=== PATIENT | female | born 1975 | race Caucasian/White ===

== ENCOUNTER 2023-04-24 16:35 | Outpatient (OUT) | payer OTHER, SELFPAY ==
--- NOTE | 2023-04-24 16:46 | XR_ITS ---
The [address] [address] Patient Name: JOHANA SRIVASTAVA MRN: [id number] date: 1975 Sex: F Assigned Patient Location: [facility] Current Patient Location: Accession/Order Number: [id number] Exam Date: 04/24/2023 16:52 Report Date: 04/25/2023 07:46 At the request of: AMISHA SÁNCHEZ Procedure: XR lumbar spine 6V w bending Exam: Radiographs: XR hip RT 2V w/ pelvis, XR lumbar spine 6V w bending Reason for exam: ACUTE RIGHT HIP PAIN M25.551 Comparison: CT scan dated 09/24/2022 XR/XR lumbar spine 6V w bending IMPRESSION: Non-circumscribed subtle lucency in the superior femoral head neck junction is favored to represent normal variation in the marrow density although a subtle lucent lesion is difficult to exclude. If persistent symptoms, consider follow-up evaluation with MRI. Right hip is otherwise unremarkable. No radiographically evident lumbar spine fractures. 1 to 2 mm anterior motion of L4 on L5 between flexion/extension views. Otherwise no lumbar spine malalignment. Mild lumbar spine degenerative changes with preserved intervertebral disc heights. Remainder unremarkable. Electronically authenticated by: ASHELY MCCLELLAN Date: 04/25/2023 07:46
--- NOTE | 2023-04-24 16:47 | XR_ITS ---
[address] [address] Patient Name: JOHANA SRIVASTAVA MRN: [id number] date: 1975 Sex: F Assigned Patient Location: [facility] Current Patient Location: Accession/Order Number: [id number] Exam Date: 04/24/2023 16:52 Report Date: 04/25/2023 07:46 At the request of: AMISHA SÁNCHEZ Procedure: XR hip RT 2V w/ pelvis Exam: Radiographs: XR hip RT 2V w/ pelvis, XR lumbar spine 6V w bending Reason for exam: ACUTE RIGHT HIP PAIN M25.551 Comparison: CT scan dated 09/24/2022 XR/XR hip RT 2V w/ pelvis IMPRESSION: Non-circumscribed subtle lucency in the superior femoral head neck junction is favored to represent normal variation in the marrow density although a subtle lucent lesion is difficult to exclude. If persistent symptoms, consider follow-up evaluation with MRI. Right hip is otherwise unremarkable. No radiographically evident lumbar spine fractures. 1 to 2 mm anterior motion of L4 on L5 between flexion/extension views. Otherwise no lumbar spine malalignment. Mild lumbar spine degenerative changes with preserved intervertebral disc heights. Remainder unremarkable. Electronically authenticated by: ASHELY MCCLELLAN Date: 04/25/2023 07:46
== END 2023-04-24 16:36 | disposition home or self-care (01) ==
LOC: RAD 16:38
PROVIDERS: PCP Internal Medicine; Visit Provider Internal Medicine
DX: M54.41 Lumbago with sciatica, right side (principal); M25.551 Pain in right hip
CPT/HCPCS: 72114; 73502

== ENCOUNTER 2023-08-31 12:54 | Outpatient (OUT) | payer OTHER, SELFPAY ==
--- NOTE | 2023-08-31 12:58 | US_ITS ---
Patient Name: JOHANA SRIVASTAVA MR#: [id number] : 1975 Exam Date: 08/31/2023 Ordering Doctor: DR MIRACLE CARTER RADIOLOGY REPORT PROCEDURE: MM TOMOSYNTHESIS DIAGNOSTIC BI, 08/31/2023, 12:57 US BREAST BI COMPLETE, 08/31/2023, 13:31 COMPARISON: MG MAMM RT DIAG FU, 10/06/2022. INDICATIONS: Abnormal Mammogram Calculator Name NCI Breast Cancer Risk Assessment Tool 5 Year Breast Cancer Risk 1.60% Lifetime Breast Cancer Risk 12.50% Personal Breast Cancer No Personal Ovarian Cancer No Treatments None Family Cancers Grandfather-maternal with colon cancer at age 70. LOCATION: [facility] BREAST COMPOSITION: Extremely dense, which lowers the sensitivity of mammography. FINDINGS: DIAGNOSTIC CATEGORY 2--BENIGN FINDING: The breasts are stable in size and overall fibroglandular configuration. Multiple nodules identified in both breasts the largest in the left upper half. No spiculated mass or suspicious pleomorphic calcifications Ultrasound was performed demonstrating multiple areas of anechoic echogenicity in both breasts largest measuring 2.2 cm in the left. These lesions correspond to the mammographic findings and simple cysts are favored. No further evaluation is required. RECOMMENDATIONS: ROUTINE MAMMOGRAM AND CLINICAL EVALUATION IN 12 MONTHS. PLEASE NOTE: A NORMAL MAMMOGRAM DOES NOT EXCLUDE THE POSSIBILITY OF BREAST CANCER. A CLINICALLY SUSPICIOUS PALPABLE LUMP SHOULD BE BIOPSIED. Dictated by: Rickey Rangel MD on 08/31/2023 at 14:22 Approved by: Rickey Rangel MD on 08/31/2023 at 14:24
== END 2023-08-31 12:55 | disposition home or self-care (01) ==
LOC: MAMMO 12:54
PROVIDERS: PCP Internal Medicine; Visit Provider Obstetrics & Gynecology
DX: R92.8 Other abnormal and inconclusive findings on diagnostic imaging of breast (principal); Z80.0 Family history of malignant neoplasm of digestive organs
CPT/HCPCS: 76641; 77066; G0279

== ENCOUNTER 2025-06-11 08:11 | Outpatient (OUT) | payer OTHER, SELFPAY ==
--- OUTSIDE RECORDS SUMMARY | 2025-06-11 08:21 | XMS_ITS | CCD ---
Author Organization [facility] Inform ion [facility] Care Team Providers Care Informatics Spec Name Role Phone Reed Sánchez DO Primary Care Provider [phone] JUAN, DR CHAUDHARY Attending Unavailable PRINCESS, DR LION Primary Care Unavailable KARASIK, DR CHAUDHARY Consulting Unavailable KARASIK, DR CHAUDHARY Admitting Unavailable ZIEBER, DR PHYLLIS Yu Consulting Unavailable KARASIK, DR CHAUDHARY Consulting Unavailable KARASIK, DR CHAUDHARY Admitting Unavailable KARASIK, DR CHAUDHARY Attending Unavailable PRINCESS, DR LION Primary Care Unavailable PRINCESS, DR LION Primary Care Unavailable KARASIK, DR CHAUDHARY Consulting Unavailable KARASIK, DR CHAUDHARY Admitting Unavailable KARASIK, DR CHAUDHARY Attending Unavailable FARRAH, DR RACHAEL Oliver Consulting Unavailable PRINCESS, DR LION Primary Care Unavailable SALINAS, DR JABARI Yu Consulting Unavailable SUSAN, DR HUTCHINSON Admitting Unavailable SUSAN, DR HUTCHINSON Attending Unavailable HAY, DR HUTCHINSON Consulting Unavailable Louis, Margarita Consulting Unavailable REED SÁNCHEZ Primary Care Unavailable IMEL, CATERINA Fishman Admitting Unavailable IMYESENIA, CATERINA Fishman Attending Unavailable REED SÁNCHEZ Primary Care Unavailable MD Neena Youngblood Attending Provider DO Reed Sánchez Primary Care Provider [phone] KATARINA ASH Admitting Unavail able KATARINA ASH Attending Unavail able REED SÁNCHEZ Primary Care Unavailable JOHN CERNA Consulting Unavailable JOHN CERNA Admitting Unavailable JOHN CERNA Attending Unavailable REED SÁNCHEZ Primary Care Unavailable Reed Sánchez Unavailable DO Reed Sánchez Primary Care Provider [phone] DO Nasim Gifford Attending Provider [phone] NASIM GIFFORD Attending Unavailable Reed Sánchez MD Primary Care Provider Reed Sánchez Primary Care Unavailable Nasim Gifford Attending Unavailable Nasim Gifford Admitting Unavailable Reed Sánchez DO Primary Care Provider Reed Sánchez DO Attending Provider Reed Sánchez DO E Primary Care Provider Allergies Allergy Classification Reported Allergen(s) Allergy Type Date of Onset Reaction(s) Facility (4 sources) Penicillin G Drug Allergy 09-24-19 Rash [facility] (11 sources) Sulfonamides (Antibiotic) Propensity to adverse reactions to drug 09-24-19 Rash, Hives, Itching [facility] Work Phone: (1 source) Penicillin Drug Allergy [facility] (1 source) Sulfonamides (Antibiotic) Drug allergy (disorder) [facility] (7 sources) Penicillins; Translations: [Penicillins] Allergy to substance 11-16-19 Hives, [facility] (5 sources) Sulfonamides (Antibiotic); Translations: [Sulfa (Sulfonamide Antibiotics)] Allergy to substance 11-16-19 Unknown Reaction, [facility] (6 sources) Amoxicillin Drug Allergy Unknown [facility] Other (6 sources) Sulfamethoxazole / Trimethoprim Drug Allergy Unknown [facility] Other (5 sources) Substance with penicillin structure and antibacterial mechanism of action (substance) Drug allergy Unknown [facility] Other Medications Current Medications Medication Drug Class(es) Dates Sig (Normalized) Sig (Original) calcium chloride 0.0014 meq/ml / potassium chloride 0.004 meq/ml / sodium chloride 0.103 meq/ml / sodium lactate 0.028 meq/ml injectable solution (2 sources) Start: 12-14-2022 lactated ringers IV soln infusion Start: 11-14-2022 lactated ringe rs IV soln infusion ciprofloxacin 500 mg oral tablet (4 sources) Quinolone Antimicrobial Start: 12-14-2022 End: 12-19-2022 take 1 tablet by mouth twice daily ciprofloxacin (CIPRO) 500 MG tablet Take 1 tablet by mouth 2 times daily for 5 days 10 tablet 0 12/14/2022 12/19/2022 Active Start: 10-02-2022 End: 10-05-2022 take 1 tablet by mouth twice daily ciprofloxacin (CIPRO) 500 MG tablet Take 1 tablet by mouth 2 times daily for 3 days 6 tablet 0 10/02/2022 10/05/2022 Active Start: 09-25-2022 End: 10-05-2022 ciprofloxacin (CIPRO) IVPB 4 00 mg docusate sodium 100 mg oral capsule (1 source) Start: 12-14-2022 take 1 capsule by mouth once daily docusate sodium (COLACE) 100 MG capsule Take 1 capsule by mouth daily 28 capsule 0 12/14/2022 Active 0.3 ml enoxaparin sodium 100 mg/ml prefilled syringe (1 source) Low Molecular Weight Heparin Start: 09-27-2022 enoxaparin Sodium (LOVENOX) injection 30 mg estradiol 1 mg oral tablet (3 sources) Estrogen Start: 04-29-2024 End: 06-03-2025 take 1 tablet by mouth once daily estradiol (Estrace) 1 MG tablet Indications: Postmenopausal HRT (hormone replacement therapy) TAKE 1 TABLET BY MOUTH EVERY DAY 90 tablet 06/01/2025 Active famotidine 20 mg oral tablet (14 sources) Histamine-2 Receptor Antagonist Start: 05-16-2023 take 1 tablet by mouth once daily as needed for gastroesophageal reflux disease Famotidine (Pepcid) 20 mg Tablet Active 20 MG PO Daily as needed for gerd May 16, 2023 12:00am Complies with drug therapy take 1 tablet by mouth every twe lve hours Pepcid AC 10 MG 1 tablet as needed Orally Twice a day Active 2 ml fentaNYL 0.05 mg/ml injection (2 sources) Opioid Agonist Start: 12-14-2022 fentaNYL (SUBL IMAZE) injection 50 mcg Start: 12-14-2022 fentaNYL (SUBL IMAZE) injection 25 mcg ibuprofen 400 mg oral tablet (1 source) Nonsteroidal Anti-inflammatory Drug Start: 09-26-2022 ibuprofen (ADVIL;MOTRIN) tablet 400 mg levonorgestrel 0.555027 mg/hr intrauterine system (4 sources) Progestin, Progestin-containing Intrauterine Device levonorgestrel (MIRENA, 52 MG,) IUD 52 mg 52 each by IntraUTERine route 0 Active meloxicam 15 mg oral tablet (1 source) Nonsteroidal Anti-inflammatory Drug Start: 05-28-2025 take 1 tablet by mouth once daily Meloxicam 15 mg tablet Active 15 MG PO Daily May 28, 2025 12:00am Complies with drug therapy meperidine hydrochloride 50 mg/ml injectable solution (1 source) Opioid Agonist Start: 12-14-2022 meperidine (DEMEROL) injection 12.5 mg metroNIDAZOLE 500 mg oral tablet (4 sources) Nitroimidazole Antimicrobial Start: 12-14-2022 End: 12-19-2022 take 1 tablet by mouth three times daily metroNIDAZOLE (FLAGYL) 500 MG tablet Take 1 tablet by mouth 3 times daily for 5 days 15 tablet 0 12/14/2022 12/19/2022 Active Start: 10-02-2022 End: 10-05-2022 take 1 tablet by mouth three times daily metroNIDAZOLE (FLAGYL) 500 MG tablet Take 1 tablet by mouth 3 times daily for 3 days 9 tablet 0 10/02/2022 10/05/2022 Active Start: 09-29-2022 End: 10-05-2022 metronidazole (FLAGYL) 500 m g in 0.9% NaCl 100 mL IVPB premix Start: 09-25-2022 End: 09-29-2022 500 mg, IntraVENous, EVERY 8 HOURS, First dose on Sun09/25/22 at 0245, Until Discontinued Antimicrobial Indications: Surgical Prophylaxis nitrofurantoin, macrocrystals 25 mg / nitrofurantoin, monohydrate 75 mg oral capsule (2 sources) Nitrofuran Antibacterial Start: 07-12-2023 take 1 capsule by mouth every twelve hours Nitrofurantoin Monohyd Macro 100 MG 1 capsule with food Orally every 12 hrs for 5 days Jun, Active ondansetron 4 mg oral tablet (3 sources) Serotonin-3 Receptor Antagonist Start: 12-14-2022 take 1 tablet by mouth every eight hours as needed for nausea ondansetron (ZOFRAN) 4 MG tablet Take 1 tablet by mouth every 8 hours as needed for Nausea or Vomiting 28 tablet 0 12/14/2022 Active Start: 12-14-2022 End: 12-14-2022 ondansetron (ZOFRAN) injecti on 4 mg Start: 09-27-2022 ondansetron (Z OFRAN) injection 4 mg predniSONE 20 mg oral tablet (1 source) Start: 05-28-2025 Prednisone 20 mg tablet Active 20 MG PO As Directed 9 May 28, 2025 12:00am 1 tab bid w/ food x 3 days, then qd w/ food x 3 days Complies with drug therapy 5 ml sodium chloride 9 mg/ml injection (9 sources) Start: 12-14-2022 sodium chlorid e flush 0.9 % injection 5-40 mL Start: 12-14-2022 0.9 % sodium c hloride infusion Start: 12-14-2022 sodium chlorid e flush 0.9 % injection 5-40 mL Start: 11-14-2022 0.9 % sodium c hloride infusion Start: 11-14-2022 sodium chlorid e flush 0.9 % injection 5-40 mL Start: 09-25-2022 End: 09-26-2022 0.9 % sodium chloride infusi on Start: 09-25-2022 take 5-40 mL intrave nously once as needed 5-40 mL, IntraVENous, PRN, Starting on Sun09/25/22 at 0233, Until Discontinued, Line Care, After every IV line use For Line Patency: Peripheral IV = 5 mL; Midline or Central Line = 10 mL/lumen. If following IV push medication, administer flush at same rate as the IV push. Flush volume is determined by type of infusion therapy being given. For non-viscous solutions use: Peripheral IV = 5 mL Midline or Central Line = 10 mL/lumen For viscous solutions (i.e. blood components, parenteral nutrition, contrast media, or after obtaining blood sample) use: Peripheral IV = 10 mL Midline or Central Line = 20 mL/lumen Start: 09-24-2022 End: 09-25-2022 0.9 % sodium chloride bolus tiZANidine 4 mg oral tablet (5 sources) Central alpha-2 Adrenergic Agonist Start: 04-24-2023 take 0.5-1 tablets by mouth once at bedtime tiZANidine HCl 4 MG 1/2 to 1 tablet Orally q HS for 14 days Apr, Active Completed/Discontinued Medications Medication Drug Class(es) Dates Sig (Normalized) Sig (Original) acetaminophen 500 mg oral capsule (4 sources) Start: 05-24-2023 End: 04-29-2024 take 2 capsules by mouth twice daily as needed for pain Acetaminophen 500 mg Capsule Discontinued 1000 MG PO Twice daily as needed for Pain May 24, 2023 12:00am April 29, 2024 1:32pm Start: 05-24-2023 take 1000 mg by mout h twice daily Acetaminophen Active 1000 MG PO Twice daily May 24, 2023 12:00am Start: 09-27-2022 acetaminophen (TYLENOL) tablet 650 mg Start: 09-25-2022 End: 09-27-2022 take 1 dose by mouth three times daily 1,000 mg, Oral, EVERY 8 HOURS SCHEDULED (3 times per day), First dose on Sun09/25/22 at 0600, Until Discontinued Maximum dose of acetaminophen is 4000 mg from all sources in 24 hours. azithromycin 250 mg oral tablet (2 sources) Macrolide Antimicrobial Start: 01-13-2025 End: 05-28-2025 Azithromycin 250 mg tablet Discontinued 0 PO daily 02 26January 13, 2025 12:00am May 28, 2025 9:37am Take 2 on day 1 and then take 1 for the next 4 days (days 2-5) Start: 04-02-2023 Azithromycin 2 50 MG as directed Orally daily for 5 days Mar, Active cetirizine hydrochloride 10 mg oral tablet (14 sources) Histamine-1 Receptor Antagonist Start: 05-16-2023 End: 04-29-2024 take 1 tablet by mouth once daily at bedtime Cetirizine (Zyrtec) 10 mg Tablet Discontinued 10 MG PO Daily at bedtime May 16, 2023 12:00am April 29, 2024 1:32pm diatrizoate meglumine-sodium (GASTROGRAFIN) 66-10 % solution 30 mL (2 sources) Start: 09-28-2022 End: 09-28-2022 diatrizoate meglumine-sodium (GASTROGRAFIN) 66-10 % solution 30 mL Start: 09-25-2022 End: 09-27-2022 diatrizoate meglumine-sodium (GASTROGRAFIN) 66-10 % solution 30 mL docusate sodium 50 mg / sennosides, fci 8.6 mg oral tablet (1 source) Start: 09-26-2022 End: 09-27-2022 sennosides-docusate sodium (SENOKOT-S) 8.6-50 MG tablet 2 tablet etodolac 500 mg oral tablet (9 sources) Nonsteroidal Anti-inflammatory Drug Start: 03-17-2024 End: 04-29-2024 take 1 tablet by mouth twice daily at mealtime Etodolac 500 mg tablet Discontinued 0 .ROUTE .COMPLEX 60 March 17, 2024 1:13pm April 29, 2024 1:32pm TAKE 1 TABLET BY MOUTH TWICE A DAY WITH FOOD FOR 30 DAYS Start: 04-24-2023 End: 03-17-2024 etodolac (Lodine) 500 MG tab let if needed. 06/24/2023 Active 250 ml glucose 50 mg/ml / sodium chloride 4.5 mg/ml injection (1 source) Start: 09-26-2022 End: 09-29-2022 dextrose 5 % and 0.45 % sodium chloride infusion 1 ml HYDROmorphone hydrochloride 1 mg/ml cartridge (2 sources) Opioid Agonist Start: 09-25-2022 End: 09-25-2022 HYDROmorphone (DILAUDID) injection 1 mg Start: 09-24-2022 End: 09-24-2022 HYDROmorphone (DILAUDID) inj ection 1 mg iopamidol (ISOVUE-370) 76 % injection 75 mL (2 sources) Start: 09-28-2022 End: 09-28-2022 iopamidol (ISOVUE-370) 76 % injection 75 mL Start: 09-25-2022 End: 09-25-2022 iopamidol (ISOVUE-370) 76 % injection 75 mL 1 ml ketorolac tromethamine 15 mg/ml cartridge (1 source) Nonsteroidal Anti-inflammatory Drug, Cyclooxygenase Inhibitor Start: 09-25-2022 End: 09-26-2022 take 1 dose intravenously once daily Ketorolac is contraindicated in patients with advanced renal impairment and in patients at risk of renal failure due to volume depletion. For 65 years of age and older OR weight less than 50 kg, use 15 mg IV every 6 hours; MAX dose: 60 mg/day. Dose greater than 30 mg must be administered via intramuscular route. Do not administer for more than 5 days. 15 mg, IntraVENous, EVERY 6 HOURS, 12 doses, First dose on Sun09/25/22 at 0245, Last dose on Sun09/28/22 at 0000 Do not administer for more than 5 days. 10 ml lidocaine hydrochloride 10 mg/ml injection (1 source) Antiarrhythmic, Amide Local Anesthetic Start: 11-14-2022 End: 11-14-2022 lidocaine PF 1 % injection 1 mL 50 ml magnesium sulfate 40 mg/ml injection (1 source) Start: 09-27-2022 End: 09-27-2022 magnesium sulfate 2000 mg in 50 mL IVPB premix 2 ml metoclopramide 5 mg/ml prefilled syringe (1 source) Dopamine-2 Receptor Antagonist Start: 12-14-2022 End: 12-14-2022 metoclopramide (REGLAN) injection 10 mg Start: 12-14-2022 End: 12-14-2022 metoclopramide (REGLAN) inje ction 10 mg naproxen sodium 220 mg oral tablet (2 sources) Nonsteroidal Anti-inflammatory Drug Start: 05-24-2023 End: 05-28-2025 take 1 tablet by mouth once daily as needed for pain Naproxen Sodium (Aleve) 220 mg Tablet Discontinued 220 MG PO Daily as needed for Pain May 24, 2023 12:00am May 28, 2025 10:02am oxyCODONE hydrochloride 5 mg oral tablet (4 sources) Opioid Agonist Start: 12-14-2022 End: 12-21-2022 oxyCODONE (ROXICODONE) immediate release tablet 5 mg Start: 09-25-2022 End: 09-28-2022 take 5 mg by mouth every six hours as needed for pain 5 mg, Oral, EVERY 6 HOURS PRN, Starting on Sun09/25/22 at 0233, Until Sun09/28/22 at 1022, Pain Severe (7-10) potassium & sodium phosphate s (PHOS-NAK) 280-160-250 MG packet 500 mg (1 source) Start: 09-26-2022 End: 09-26-2022 potassium & sodium phosphates (PHOS-NAK) 280-160-250 MG packet 500 mg microencapsulated potassium chloride 20 meq extended release oral tablet (3 sources) Start: 09-29-2022 End: 01-06-2023 potassium chloride (KLOR-CON M) extended release tablet 20 mEq Start: 09-27-2022 End: 09-27-2022 potassium chloride (KLOR-CON M) extended release tablet 40 mEq Start: 09-26-2022 End: 09-26-2022 potassium chloride (KLOR-CON M) extended release tablet 40 mEq 2 ml prochlorperazine 5 mg/ml injection (1 source) Phenothiazine Start: 12-14-2022 End: 12-14-2022 prochlorperazine (COMPAZINE) injection 10 mg Start: 12-14-2022 End: 12-14-2022 prochlorperazine (COMPAZINE) injection 10 mg traMADol hydrochloride 50 mg oral tablet (2 sources) Opioid Agonist Start: 05-24-2023 End: 04-29-2024 take 1 tablet by mouth every four hours as needed for pain Tramadol 50 mg Tablet Discontinued 50 MG PO Q4H as needed for Pain scale 1 - 4 20 7 May 24, 2023 12:00am April 29, 2024 1:32pm Problems Active Problems Problem Classification Problem Date Documented Date Episodic/Chronic Abdominal pain (15 sources) Right lower quadrant pain; Translations: [Abdominal pain] Onset: 09-24-2022 Resolved: 02-28-2022 Episodic Comment on above: Problem List clean-u p per request of Phys. EHR Cmte Esophageal disorders (7 sources) Gastro-esophageal reflux disease without esophagitis; Translations: [Gastro-esophageal reflux disease with esophagitis] Onset: 09-27-2022 07-08-2024 Chronic Esophageal disorders (3 sources) Esophageal disorders; Translations: [Gastro-esophageal reflux disease with esophagitis, without bleeding] Genitourinary symptoms and ill-defined conditions (1 source) Dysuria Episodic Immunizations and screening for infectious disease (6 sources) Encounter for screening for human papillomavirus (HPV); Translations: [Contact with and (suspected) exposure to other viral communicable diseases] Onset: 09-20-2022 Episodic Menopausal disorders (1 source) Postmenopausal state; Translations: [Hormone replacement therapy] 07-08-2024 Episodic Miscellaneous mental health disorders (5 sources) Lack or loss of sexual desire; Translations: [Hypoactive sexual desire disorder] Onset: 04-09-2011 Chronic Other ear and sense organ disorders (5 sources) Otitis externa of bilateral ears; Translations: [Other otitis externa, bilateral] Chronic Other injuries and conditions due to external causes (5 sources) History of fall; Translations: [History of falling] Episodic Other nervous system disorders (1 source) Postoperative pain ; Translations: [Other acute postprocedural pain] Episodic Other nervous system disorders (1 source) Other acute postprocedural pain; Translations: [Other acute postprocedural pain] Onset: 12-14-2022 Episodic Other non-traumatic joint disorders (1 source) Pain in right hip Episodic Other nutritional; endocrine; and metabolic disorders (5 sources) Simple obesity ; Translations: [Other obesity due to excess calories] Onset: 11-12-2018 Chronic Other nutritional; endocrine; and metabolic disorders (5 sources) Body mass index 25-29 - overweight; Translations: [Body mass index (BMI) 27.0-27.9, adult] Episodic Other nutritional; endocrine; and metabolic disorders (1 source) Overweight Episodic Other upper respiratory infections (6 sources) Chronic maxillary sinusitis; Translations: [Chronic maxillary sinusitis] 01-13-2025 Chronic Other upper respiratory infections (16 sources) Acute maxillary sinusitis, unspecified; Translations: [Acute sinusitis] Onset: 08-05-2014 Episodic Otitis media and related conditions (1 source) Unspecified Eustachian tube disorder, bilateral Episodic Ovarian cyst (6 sources) Unspecified ovarian cyst, left side; Translations: [Cyst of right ovary] Onset: 09-27-2022 Episodic Residual codes; unclassified (1 source) Family history of malignant neoplasm of digestive organs; Translations: [FAM HX MALIG NEOPLASM DIGESTIV ORGN] Onset: 09-22-2022 Episodic Residual codes; unclassified (5 sources) Postprocedural state finding; Translations: [Other specified postprocedural states] Episodic Spondylosis; intervertebral disc disorders; other back problems (6 sources) Acute back pain with sciatica; Translations: [Lumbago with sciatica, right side] Episodic Unclassified (1 source) CONTACT W/AND (SUSP) EXPOS COVID-19; Translations: [CONTACT W/AND (SUSP) EXPOS COVID-19] Onset: 09-27-2022 Unclassified (5 sources) Unspecified lump in the right breast, overlapping quadrants; Translations: [Unspecified lump in the right breast, overlapping quadrants] Past or Other Problems Problem Classification Problem Date Documented Date Episodic/Chronic Appendicitis and other appendiceal conditions (12 sources) Appendicitis; Translations: [Unspecified appendicitis] Onset: 09-25-2022 Episodic Cancer of cervix (12 sources) Atypical squamous cells on cervical Papanicolaou smear cannot exclude high grade squamous intraepithelial lesion; Translations: [Atypical squamous cells cannot exclude high grade squamous intraepithelial lesion on cytologic smear of cervix (ASC-H)] Onset: 05-09-2023 Resolved: 07-08-2024 07-08-2024 Episodic Menstrual disorders (5 sources) Excessive and frequent menstruation; Translations: [Excessive and frequent menstruation with regular cycle] Resolved: 02-28-2022 Chronic Nonmalignant breast conditions (20 sources) Disorder of breast; Translations: [Other specified disorders of breast] Onset: 05-09-2023 Resolved: 02-07-2018 05-09-2023 Episodic Other aftercare (5 sources) History and physical examination, follow-up; Translations: [Encounter for follow-up examination after completed treatment for conditions other than malignant neoplasm] Resolved: 09-12-2021 Episodic Other female genital disorders (5 sources) Hypertrophy of uterus; Translations: [Hypertrophy of uterus] Resolved: 09-12-2021 Episodic Other nutritional; endocrine; and metabolic disorders (9 sources) Overweight; Translations: [Overweight] Onset: 07-08-2024 Resolved: 09-08-2020 07-08-2024 Episodic Other screening for suspected conditions (not mental disorders or infectious disease) (20 sources) Encounter for screening mammogram for malignant neoplasm of breast; Translations: [Other abnormal and inconclusive findings on diagnostic imaging of breast] Onset: 09-13-2022 Resolved: 07-08-2024 Episodic Results Test Name Value Interpretation Reference Range Facility MM screening mammo BI w/CADo n 09-03-2024 MM screening mammo BI w/CAD [facility] [place] [address] [place] [address] Mammography Report Signed Patient: Johana Srivastava MR#: [id number] : 1975 Acct:[id number] Age/Sex: 48 / F ADM Date: 09/03/24 Loc: [place] Room: Type: [facility] Attending Dr: Nasim Gifford DO Copies to: DO Nasim Crow DO Ordering Provider: Nasim Gifford DO Date of Service: 09/03/24 MM/MM screening mammo BI w/CAD: Z12.31 CLINICAL DATA: Screening for malignancy. BILATERAL SCREENING MAMMOGRAMS - FULL FIELD DIGITAL WITH TOMOSYNTHESIS AND CAD Tomosynthesis craniocaudal and mediolateral oblique views of both breasts were obtained using low- dose digital technique. Comparison is made to prior studies from 08/31/2023. This examination was reviewed with the aid of CAD. The breast parenchyma is heterogeneously dense. There is a similar focal asymmetry in the upper outer aspect of the left breast. Benign-appearing calcifications are present bilaterally. Benign- appearing lymph nodes are noted along the chest wall. There is a biopsy clip in the medial aspect of the right breast. Similar focal asymmetries are noted on the right. A prominent focal asymmetry centrally in the left breast shows a significant interval decrease in size. There are no dominant masses, typically malignant calcifications or architectural distortion. There has been no significant interval change. MM/MM screening mammo BI w/CAD IMPRESSION: NO MAMMOGRAPHIC EVIDENCE OF MALIGNANCY. ROUTINE FOLLOW-UP IS RECOMMENDED IN ONE YEAR. RESULT CODE: 2 Benign Findings(s) DENSITY CODE: 3 (approximately 51-75% glandular) FOLLOW UP: 1YR The false-negative rate of mammography is approximately 10-percent. Management of a palpable abnormality must be based on clinical grounds. Patient was entered into a reminder system with a target due date for the next mammogram. Impression dictated by: Jabari Eaton M.D.09/03/2024 3:55 PM Dictation Location: [facility] Transcribed By: [facility] 09/03/24 1550 Dictated By: Jabari Eaton II, MD 09/03/24 155 Signed By: 09/03/24 1559 Normal [facility] Urinalysis - DIPSTICKon 10- Appearance (U) cloudy [facility] Other Bilirubin Ql (U) off chart [facility] Other Color (U) yellow [facility] Other Glucose Ql (U) Negative [facility] Other Hemoglobin Ql (U) + [facility] Other Ketones Ql (U) Negative [facility] Other Leukocyte esterase Test strip Ql (U) + [facility] Other Nitrite Ql (U) Negative [facility] Other pH (U) 5.0 [pH] [facility] Other Protein Ql (U) + [facility] Other Specific gravity (U) [Rel density] 1.010 [facility] Other Urobilinogen (U) [Mass/Vol] off chart [facility] Other Urinalysis - DIPSTICK [facility] Other HCG ( test) IA.rapi d Ql (U)Ordered By: Song Hyatt on 05-24-2023 HCG ( test) Ql (U) Negative [facility] Cult,Urineon 12-15-2022 Cult,Urine Specimen Description .INDWELLING CATH URINE Culture NO GROWTH Report Status FINAL 12/15/2022 Normal [facility] Comment on above: Performed By: #### U RC #### [employer] [address] [place] [address] Manager Secondary: Leno Walker MD POCT urine pregnancyon 12-14 Beta HCG ( test) Ql (U) Negative NEGATIVE [facility] Comment on above: Specimens with hCG l evels near the threshold of the test (25 mIU/mL) may give a negative or indeterminate result. In such cases, another test should be performed with a new specimen in 48-72 hours. If early is suspected clinically in this setting, correlation with quantitative serum b-hCG level is suggested. [facility] Surgical Pathologyon 023 Surgical Pathology (NOTE) -- Diagnosis -- A. APPENDIX, APPENDECTOMY: -MURAL FIBROSIS WITH CHRONIC INFLAMMATION, FOCAL MUCOSAL NECROSIS, AND SCATTERED GIANT CELLS, CONSISTENT WITH INTERVAL APPENDECTOMY. B. APPENDICEAL AND CECAL BASE, EXCISION: -FOCAL MUCOSAL NECROSIS WITH ACUTE AND CHRONIC INFLAMMATION AND FIBROSIS. -FOCAL AREA WITH ACUTE AND CHRONIC INFLAMMATION, FOREIGN BODY GIANT CELLS, AND FIBROSIS, COMPATIBLE WITH HISTORY OF PERFORATED BASE OF APPENDIX. Rachael Alvares M.D. Electronically Signed Out rosario12/18/2022 Clinical Information Pre-Op Diagnosis: PERFORATED APPENDIX Operative Findings: APPENDIX; APPENDICEAL AND CECAL BASE Operation Performed: XI ROBOTIC LAPAROSCOPIC APPENDECTOMY, POSSIBLE OPEN mj Source of Specimen A: APPENDIX B: APPENICEAL AND CECAL BASE Gross Description A. JOHANA SRIVASTAVA, APPENDIX 4.5 cm long x 0.8 cm in diameter vermiform appendix with a moderate amount of attached mesoappendix. The serosa is pink-castro with adhesions and patchy fibrinopurulent exudate. In the center of the segment there is a 0.2 cm transmural defect. There is no fecaliths. Tip and cross sections with margin inked black 1cs. B. JOHANA SRIVASTAVA, APPENDICEAL AND CECAL BASE 5.8 x 2.0 x 1.0 cm portion of bowel with a single staple line. The serosa is pink-castro adhesion. The mucosa is castro with no masses. Sections along staple line 1cs. cd Microscopic Description A, B. Microscopic examination performed. SURGICAL PATHOLOGY CONSULTATION Patient Name: JOHANA SRIVASTAVA [facility] Rec: [id number] Path Number: [id number] [facility] ANATOMIC PATHOLOG[facility] [address] [place] [phone] [facility] Comment on above: Performed By: #### U #### [employer] [address] [place] [address] [phone] Manager Secondary: Leno Walker MD POCT HCG, Prenancy, Uron Beta HCG ( test) Ql (U) Negative NEGATIVE [facility] Comment on above: HCG screen is sensitive to 25 mIU/mL. However this test may picker box operator lower levels of HCG. If further evaluation is needed please request quantitative HCG. [facility] Surgical Pathologyon 023 Surgical Pathology (NOTE) -- Diagnosis -- APPENDICEAL BASE, BIOPSY:-COLONIC MUCOSA WITH SLIGHT ACUTE ON CHRONIC INFLAMMATION.-NO GRANULOMAS, DYSPLASIA OR CARCINOMA. Laura Deleon Electronically Signed Out ag/11/15/2022 Clinical Information Pre-op Diagnosis: COLON CA SCREENING Operative Findings: APPENDICEAL BASE BIOPSY Operation Performed: COLONOSCOPY WITH BIOPSY tm Source of Specimen A: APPENDICEAL BASE BIOPSY Gross Description JOHANA SRIVASTAVA, APPENDICEAL BASE BIOPSY Three castro-white tissue fragments from 0.4 to 0.5 cm and are 1.5 x 0.3 x 0.1 cm in aggregate. Entirely 1cs. yr tm Microscopic Description Microscopic examination performed. SURGICAL PATHOLOGY CONSULTATION Patient Name: JOHANA SRIVASTAVA [facility] Rec: [id number] Path Number: [id number] [employer] [facility] ANATOMIC PATHOLOGY [address] [place] [phone] Normal [facility] Comment on above: Performed By: #### P PPVS #### [facility] [employer] [address] [place] [address] [phone] Manager Secondary: Leno Walker MD MG MAMM RT DIAG FUon 023 MG MAMM RT DIAG FU Patient: JOHANA SRIVASTAVA Exam Date: 10/06/2022 : 1975 Gender:F Ordering : DR NEENA YOUNGBLOOD . Admission #: [id number] Family : Order #: [id number] CLICK HERE TO VIEW EXAM RADIOLOGY REPORT PROCEDURE: MAMMOGRAM RIGHT DIAGNOSTIC DIGITAL FOLLOW UP, 10/06/2022, 13:46 ULTRASOUND BREAST RIGHT LIMITED, 10/06/2022, 14:20 COMPARISON: MG MAMM SCREEN 3D GABBY CAD, 09/20/2022. MG MAMM SCREEN 3D GABBY CAD, 09/15/2021. MG MAMM LT DIAG FU, 09/20/2020. MG MAMM SCREEN GABBY W CAD, 09/10/2020. INDICATIONS: Abnormal findings on diagnostic imaging of breast Calculator Name NCI Breast Cancer Risk Assessment Tool 5 Year Breast Cancer Risk 1.70% Lifetime Breast Cancer Risk 12.80% Personal Breast Cancer No Personal Ovarian Cancer No Treatments None Family Cancers Grandfather-maternal with colon cancer at age 70. LOCATION: [facility] BREAST COMPOSITION: Extremely dense, which lowers the sensitivity of mammography. FINDINGS: DIAGNOSTIC CATEGORY 0--INCOMPLETE: NEED ADDITIONAL IMAGING EVALUATION. RIGHT BREAST: Spot magnification views demonstrate a 9 x 6 x 5 mm irregular, slightly lobular mass within the upper inner quadrant, corresponding to the new findings on recent screening moderate fee. Ultrasound evaluation demonstrates 2 lesions within this area: One is 9 x 4 x 4 mm at the 3 o'clock position 9.2 cm from the nipple, with irregular slightly lobular margins, appearing to represent a partially cystic mass or collection of simple and complex cysts. No appreciable internal blood flow on color Doppler. The 2nd lesion is 1.6 x 0.9 x 0.5 cm at the 2 o'clock position 6.3 cm from the nipple, with lobular irregular margins and appears represent a mixture of cystic and solid structures; no appreciable internal blood flow on color Doppler. Ultrasound-guided biopsy of both of these lesions could be performed, however, given the very complex appearance of both breasts and history of prior biopsies and follow-up images, MRI of the breast should be considered due to its greater diagnostic sensitivity for malignancy. RECOMMENDATIONS: BREAST MRI: BILATERAL BREASTS PLEASE NOTE: A NORMAL MAMMOGRAM DOES NOT EXCLUDE THE POSSIBILITY OF BREAST CANCER. A CLINICALLY SUSPICIOUS PALPABLE LUMP SHOULD BE BIOPSIED. Dictated by: Phyllis Benoit M.D. on 10/06/2022 at 14:44 Approved by: Phyllis Benoit M.D. on 10/06/2022 at 15:13 Normal [facility] US BREAST RIGHT LIMITEDon US BREAST RIGHT LIMITED Patient: JOHANA SRIVASTAVA Exam Date: 10/06/2022 : 1975 Gender:F Ordering : DR NEENA YOUNGBLOOD . Admission #: [id number] Family : Order #: [id number] CLICK HERE TO VIEW EXAM RADIOLOGY REPORT PROCEDURE: MAMMOGRAM RIGHT DIAGNOSTIC DIGITAL FOLLOW UP, 10/06/2022, 13:46 ULTRASOUND BREAST RIGHT LIMITED, 10/06/2022, 14:20 COMPARISON: MG MAMM SCREEN 3D GABYB CAD, 09/20/2022. MG MAMM SCREEN 3D GABBY CAD, 09/15/2021. MG MAMM LT DIAG FU, 09/20/2020. MG MAMM SCREEN GABBY W CAD, 09/10/2020. INDICATIONS: Abnormal findings on diagnostic imaging of breast Calculator Name NCI Breast Cancer Risk Assessment Tool 5 Year Breast Cancer Risk 1.70% Lifetime Breast Cancer Risk 12.80% Personal Breast Cancer No Personal Ovarian Cancer No Treatments None Family Cancers Grandfather-maternal with colon cancer at age 70. LOCATION: [facility] BREAST COMPOSITION: Extremely dense, which lowers the sensitivity of mammography. FINDINGS: DIAGNOSTIC CATEGORY 0--INCOMPLETE: NEED ADDITIONAL IMAGING EVALUATION. RIGHT BREAST: Spot magnification views demonstrate a 9 x 6 x 5 mm irregular, slightly lobular mass within the upper inner quadrant, corresponding to the new findings on recent screening moderate fee. Ultrasound evaluation demonstrates 2 lesions within this area: One is 9 x 4 x 4 mm at the 3 o'clock position 9.2 cm from the nipple, with irregular slightly lobular margins, appearing to represent a partially cystic mass or collection of simple and complex cysts. No appreciable internal blood flow on color Doppler. The 2nd lesion is 1.6 x 0.9 x 0.5 cm at the 2 o'clock position 6.3 cm from the nipple, with lobular irregular margins and appears represent a mixture of cystic and solid structures; no appreciable internal blood flow on color Doppler. Ultrasound-guided biopsy of both of these lesions could be performed, however, given the very complex appearance of both breasts and history of prior biopsies and follow-up images, MRI of the breast should be considered due to its greater diagnostic sensitivity for malignancy. RECOMMENDATIONS: BREAST MRI: BILATERAL BREASTS PLEASE NOTE: A NORMAL MAMMOGRAM DOES NOT EXCLUDE THE POSSIBILITY OF BREAST CANCER. A CLINICALLY SUSPICIOUS PALPABLE LUMP SHOULD BE BIOPSIED. Dictated by: Phyllis Benoit M.D. on 10/06/2022 at 14:44 Approved by: Phyllis Benoit M.D. on 10/06/2022 at 15:13 Normal [facility] CBC with Auto Differentialon 10-02-2022 Absolute Eos # 0.38 [facility] Absolute Immature Granulocyte 0.50 High [facility] Absolute Lymph # 3.50 [facility] Absolute Parke # 0.50 [facility] Basophils (Bld) [#/Vol] 0.25 10*3/uL High [facility] Basophils/100 WBC (Bld) 2 % 0 - 2 % [facility] Eosinophils/100 WBC (Bld) 3 % 1 - 4 % [facility] Hematocrit (Bld) [Volume fraction] 36.3 % 36.3 - 47.1 % [facility] Hemoglobin (Bld) [Mass/Vol] 11.3 g/dL Low 11.9 - 15.1 g/dL [facility] Immature granulocytes/100 WBC (Bld) 4 % High 0 [facility] Interpretation and review of laboratory results Abnormal [facility] Lymphocytes/100 WBC (Bld) 28 % 24 - 44 % [facility] MCH (RBC) [Entitic mass] 29.1 pg 25.2 - 33.5 pg [facility] MCHC (RBC) [Mass/Vol] 31.1 g/dL 28.4 - 34.8 g/dL [facility] MCV (RBC) [Entitic vol] 93.6 fL 82.6 - 102.9 fL [facility] Monocytes/100 WBC (Bld) 4 % 1 - 7 % [facility] Morphology Vazquez (Bld) [Interp] Normal [facility] NRBC Automated 0.0 0.0 per 100 WBC [facility] Platelet distribution width (Bld) [Ratio] 12.7 % 11.8 - 14.4 % [facility] Platelet mean volume (Bld) [Entitic vol] 9.7 fL 8.1 - 13.5 fL [facility] Platelets (Bld) [#/Vol] 484 10*3/uL High [facility] RBC (Bld) [#/Vol] 3.88 10*6/uL Low 3.95 - 5.1 1 m/uL [facility] Segmented neutrophils/100 WBC (Bld) 59 % 36 - 66 % [facility] Segs Absolute 7.37 [facility] WBC (Bld) [#/Vol] 12.5 10*3/uL High [facility] CBC with Diffon 10-02-2022 Abs. Basophil 0.25 k/uL High 0.0-0.2 [facility] Comment on above: Performed By: #### U #### [address] [address] Manager Secondary: Leno Walker MD Abs.Imm.Granulocyte 0.50 k/uL High 0.00-0.30 [facility] Comment on above: Performed By: #### U RC #### [address] [address] Manager Secondary: Leno Walker MD Abs.Neutrophil (Seg) 7.37 k/uL Normal 1.8-7.7 [facility] Comment on above: Performed By: #### U RC #### [address] [address] Manager Secondary: Leno Walker MD Basophils/100 WBC (Bld) 2 % Normal 0-2 [facility] Comment on above: Performed By: #### U RC #### [address] [address] Manager Secondary: Leno Walker MD Eosinophils (Bld) [#/Vol] 0.38 10*3/uL Normal 0.0-0.4 [facility] Comment on above: Performed By: #### U RC #### [address] [address] Manager Secondary: Leno Walker MD Eosinophils/100 WBC (Bld) 3 % Normal 1-4 [facility] Comment on above: Performed By: #### U RC #### [address] [address] Manager Secondary: Leno Walker MD Immature granulocytes/100 WBC (Bld) 4 % High 0 [facility] Comment on above: Performed By: #### U RC #### [address] [address] Manager Secondary: Leno Walker MD Lymphocytes (Bld) [#/Vol] 3.50 10*3/uL Normal 1.0-4.8 [facility] Comment on above: Performed By: #### U RC #### [address] [address] Manager Secondary: Leno Walker MD Lymphocytes/100 WBC (Bld) 28 % Normal 24-44 [facility] Comment on above: Performed By: #### U RC #### [address] [address] Manager Secondary: Leno Walker MD Monocytes (Bld) [#/Vol] 0.50 10*3/uL Normal 0.1-0.8 [facility] Comment on above: Performed By: #### U RC #### [address] [address] Manager Secondary: Leno Walker MD Monocytes/100 WBC (Bld) 4 % Normal 1-7 [facility] Comment on above: Performed By: #### U RC #### [address] [address] Manager Secondary: Leno Walker MD Morphology Vazquez (Bld) [Interp] Normal Normal [facility] Comment on above: Performed By: #### U RC #### [address] [address] Manager Secondary: Leno Walker MD Neutrophil (Seg) 59 % Normal 36-66 [facility] Comment on above: Performed By: #### U RC #### [address] [address] Manager Secondary: Leno Walker MD NRBC Automated 0.0 per 100 WBC Normal 0.0 [facility] Comment on above: Performed By: #### U RC #### [address] [address] Manager Secondary: Leno Walker MD Platelet mean volume (Bld) [Entitic vol] 9.7 fL Normal 8.1-13.5 [facility] Comment on above: Performed By: #### U RC #### [address] [address] Manager Secondary: Leno Walker MD Platelets (Bld) [#/Vol] 484 10*3/uL High 138-453 [facility] Comment on above: Performed By: #### U RC #### [address] [address] Manager Secondary: Leno Walker MD WBC (Bld) [#/Vol] 12.5 10*3/uL High 3.5-11.3 [facility] Comment on above: Performed By: #### U RC #### [address] [address] Manager Secondary: Leno Walker MD Erythrocyte distribution width (RBC) [Ratio] 12.7 % Normal 11.8-14.4 [facility] Comment on above: Performed By: #### U RC #### [address] [address] Manager Secondary: Leno Walker MD Hematocrit (Bld) [Volume fraction] 36.3 % Normal 36.3-47.1 [facility] Comment on above: Performed By: #### U RC #### [address] [address] Manager Secondary: Leno Walker MD Hemoglobin (Bld) [Mass/Vol] 11.3 g/dL Low 11.9-15.1 [facility] Comment on above: Performed By: #### U RC #### [address] [address] Manager Secondary: Leno Walker MD MCH (RBC) [Entitic mass] 29.1 pg Normal 25.2-33.5 [facility] Comment on above: Performed By: #### U RC #### [address] [address] Manager Secondary: Leno Walker MD MCHC (RBC) [Mass/Vol] 31.1 g/dL Normal 28.4-34.8 [facility] Comment on above: Performed By: #### U RC #### [address] [address] Manager Secondary: Leno Walker MD MCV (RBC) [Entitic vol] 93.6 fL Normal 82.6-102.9 [facility] Comment on above: Performed By: #### U RC #### [address] [address] Manager Secondary: Leno Walkre MD RBC (Bld) [#/Vol] 3.88 10*6/uL Low 3.95-5.11 [facility] Comment on above: Performed By: #### U RC #### [address] [address] Manager Secondary: Leno Walker MD Basic Metab w/rfx MGon 10-01 Anion gap [Moles/Vol] 12 mmol/L Normal 9-17 [facility] Comment on above: Performed By: #### C DP, IOCAL, BMPX, MG, LATOSHA, PT #### [address] [address] Manager Secondary: Leno Walker MD Calcium [Mass/Vol] 8.4 mg/dL Low 8.6-10.4 [facility] Comment on above: Performed By: #### C DP, IOCAL, BMPX, MG, LATOSHA, PT #### [address] [address] Manager Secondary: Leno Walker MD Chloride [Moles/Vol] 102 mmol/L Normal 98-107 [facility] Comment on above: Performed By: #### C DP, IOCAL, BMPX, MG, LATOSHA, PT #### [facility] [employer] [address] [place] [address] [phone] Manager Secondary: Leno Walker MD CO2 [Moles/Vol] 23 mmol/L Normal 20-31 [facility] Comment on above: Performed By: #### C DP, IOCAL, BMPX, MG, LATOSHA, PT #### [facility] [employer] [address] [place] [phone] Manager Secondary: Leno Walker MD Creatinine [Mass/Vol] 0.67 mg/dL Normal 0.50-0.90 [facility] Comment on above: Performed By: #### C DP, IOCAL, BMPX, MG, LATOSHA, PT #### [address] [phone] Manager Secondary: Leno Walker MD GFR/1.73 sq M.predicted among non-blacks MDRD (S/P/Bld) [Vol rate/Area] mL/min/{1.73_m2} Normal >60 [facility] Comment on above: Result Comment: Effective Jun 26, 2022 These results are not intended for use in patients <18 years of age. eGFR results are calculated without a race factor using the 2020 CKD-EPI equation. Careful clinical correlation is recommended, particularly when comparing to results calculated using previous equations. The CKD-EPI equation is less accurate in patients with extremes of muscle mass, extra-renal metabolism of creatine, excessive creatine ingestion, or following therapy that affects renal tubular secretion. Performed By: #### C DP, IOCAL, BMPX, MG, LATOSHA, PT #### [facility] [employer] [address] [place] [address] [phone] Manager Secondary: Leno Walker MD Glucose [Mass/Vol] 121 mg/dL High 70-99 [facility] Comment on above: Performed By: #### C DP, IOCAL, BMPX, MG, LATOSHA, PT #### [facility] [employer] [address] [place] [address] [phone] Manager Secondary: Leno Walker MD Potassium [Moles/Vol] 4.2 mmol/L Normal 3.7-5.3 [facility] Comment on above: Performed By: #### C DP, IOCAL, BMPX, MG, LATOSHA, PT #### [facility] [address] [place], [place] [phone] Manager Secondary: Leno Walker MD Sodium [Moles/Vol] 137 mmol/L Normal 135-144 [facility] Comment on above: Performed By: #### C DP, IOCAL, BMPX, MG, LATOSHA, PT #### [facility] [address] [place], [place] [phone] Manager Secondary: Leno Walker MD Urea nitrogen [Mass/Vol] 11 mg/dL Normal 6-20 [facility] Comment on above: Performed By: #### C DP, IOCAL, BMPX, MG, LATOSHA, PT #### [facility] [address] [place], [place] [phone] Manager Secondary: Leno Walker MD Basic Metabolic Panel w/ Ref pam to MGon 10-01-2022 Anion gap [Moles/Vol] 12 mmol/L 9 - 17 mmol/L [facility] [place] [employer] [place] Calcium [Mass/Vol] 8.4 mg/dL Low 8.6 - 10. 4 mg/dL [facility] [place] [employer] [place] Chloride [Moles/Vol] 102 mmol/L 98 - 107 mmol/L [facility]ALSPR Therapeutics CO2 [Moles/Vol] 23 mmol/L 20 - 31 mmol/L [facility] Creatinine [Mass/Vol] 0.67 mg/dL 0.50 - 0.90 mg/dL [facility] GFR/1.73 sq M.predicted MDRD (S/P/Bld) [Vol rate/Area] - PINF [facility]ITALRank[facility] Comment on above: Effective Jun 26, 2022 These results are not intended for use in patients <18 years of age. eGFR results are calculated without a race factor using the 2020 CKD-EPI equation. Careful clinical correlation is recommended, particularly when comparing to results calculated using previous equations. The CKD-EPI equation is less accurate in patients with extremes of muscle mass, extra-renal metabolism of creatine, excessive creatine ingestion, or following therapy that affects renal tubular secretion. Glucose [Mass/Vol] 121 mg/dL High 70 - 99 mg/dL [facility] Interpretation and review of laboratory results Abnormal [facility] Potassium [Moles/Vol] 4.2 mmol/L 3.7 - 5.3 mmol/L [facility] Sodium [Moles/Vol] 137 mmol/L 135 - 144 mmol/L [facility] Urea nitrogen (BldV) [Mass/Vol] 11 mg/dL 6 - 20 mg/dL [facility] CBC with Auto Differentialon 10-01-2022 Absolute Eos # 0.37 [facility] Absolute Immature Granulocyte 0.62 High [facility] Absolute Lymph # 2.58 [facility] Absolute Parke # 0.62 [facility] Basophils (Bld) [#/Vol] 0.00 10*3/uL [facility] Basophils/100 WBC (Bld) 0 % 0 - 2 % [facility] Eosinophils/100 WBC (Bld) 3 % 1 - 4 % [facility] Hematocrit (Bld) [Volume fraction] 35.1 % Low 36.3 - 47.1 % [facility] Hemoglobin (Bld) [Mass/Vol] 11.0 g/dL Low 11.9 - 15.1 g/dL [facility] Immature granulocytes/100 WBC (Bld) 5 % High 0 [facility] Interpretation and review of laboratory results Abnormal [facility] Lymphocytes/100 WBC (Bld) 21 % Low 24 - 44 % [facility] MCH (RBC) [Entitic mass] 29.1 pg 25.2 - 33.5 pg [facility] MCHC (RBC) [Mass/Vol] 31.3 g/dL 28.4 - 34.8 g/dL [facility] MCV (RBC) [Entitic vol] 92.9 fL 82.6 - 102.9 fL [facility] Monocytes/100 WBC (Bld) 5 % 1 - 7 % [facility] Morphology Vazquez (Bld) [Interp] Normal [facility] NRBC Automated 0.0 0.0 per 100 WBC [facility] Platelet distribution width (Bld) [Ratio] 12.8 % 11.8 - 14.4 % [facility] Platelet mean volume (Bld) [Entitic vol] 9.5 fL 8.1 - 13.5 fL [facility] Platelets (Bld) [#/Vol] 472 10*3/uL High [facility] RBC (Bld) [#/Vol] 3.78 10*6/uL Low 3.95 - 5.1 1 m/uL [facility] Segmented neutrophils/100 WBC (Bld) 66 % 36 - 66 % [facility] Segs Absolute 8.11 High [facility] WBC (Bld) [#/Vol] 12.3 10*3/uL High [facility] CBC with Diffon 10-01-2022 Abs. Basophil 0.00 k/uL Normal 0.0-0.2 [facility] Comment on above: Performed By: #### C DP, IOCAL, BMPX, MG, LATOSHA, PT #### [employer] [address] [place] [address] Manager Secondary: Leno Walker MD Abs.Imm.Granulocyte 0.62 k/uL High 0.00-0.30 [facility] Comment on above: Performed By: #### C DP, IOCAL, BMPX, MG, LATOSHA, PT #### [employer] [address] [place] [phone] Manager Secondary: Leno Walker MD Abs.Neutrophil (Seg) 8.11 k/uL High 1.8-7.7 [facility] Comment on above: Performed By: #### C DP, IOCAL, BMPX, MG, LATOSHA, PT #### [employer] [address] [place] [address] Manager Secondary: Leno Walker MD Basophils/100 WBC (Bld) 0 % Normal 0-2 [facility] Comment on above: Performed By: #### C DP, IOCAL, BMPX, MG, LATOSHA, PT #### [address] [address] Manager Secondary: Leno Walker MD Eosinophils (Bld) [#/Vol] 0.37 10*3/uL Normal 0.0-0.4 [facility] Comment on above: Performed By: #### C DP, IOCAL, BMPX, MG, LATOSHA, PT #### [address] [address] Manager Secondary: Leno Walker MD Eosinophils/100 WBC (Bld) 3 % Normal 1-4 [facility] Comment on above: Performed By: #### C DP, IOCAL, BMPX, MG, LATOSHA, PT #### [address] [address] Manager Secondary: Leno Walker MD Immature granulocytes/100 WBC (Bld) 5 % High 0 [facility] Comment on above: Performed By: #### C DP, IOCAL, BMPX, MG, LATOSHA, PT #### [address] [address] Manager Secondary: Leno Walker MD Lymphocytes (Bld) [#/Vol] 2.58 10*3/uL Normal 1.0-4.8 [facility] Comment on above: Performed By: #### C DP, IOCAL, BMPX, MG, LATOSHA, PT #### [address] [address] Manager Secondary: Leno Walker MD Lymphocytes/100 WBC (Bld) 21 % Low 24-44 [facility] Comment on above: Performed By: #### C DP, IOCAL, BMPX, MG, LATOSHA, PT #### [address] [address] Manager Secondary: Leno Walker MD Monocytes (Bld) [#/Vol] 0.62 10*3/uL Normal 0.1-0.8 [facility] Comment on above: Performed By: #### C DP, IOCAL, BMPX, MG, LATOSHA, PT #### [address] [address] Manager Secondary: Leno Walker MD Monocytes/100 WBC (Bld) 5 % Normal 1-7 [facility] Comment on above: Performed By: #### C DP, IOCAL, BMPX, MG, LATOSHA, PT #### [address] [address] Manager Secondary: Leno Walker MD Morphology Vazquez (Bld) [Interp] Normal Normal [facility] Comment on above: Performed By: #### C DP, IOCAL, BMPX, MG, LATOSHA, PT #### [address] [address] Manager Secondary: Leno Walker MD Neutrophil (Seg) 66 % Normal 36-66 [facility] Comment on above: Performed By: #### C DP, IOCAL, BMPX, MG, LATOSHA, PT #### [address] [address] Manager Secondary: Leno Walker MD Erythrocyte distribution width (RBC) [Ratio] 12.8 % Normal 11.8-14.4 [facility] Comment on above: Performed By: #### C DP, IOCAL, BMPX, MG, LATOSHA, PT #### [address] [address] Manager Secondary: Leno Walker MD Hematocrit (Bld) [Volume fraction] 35.1 % Low 36.3-47.1 [facility] Comment on above: Performed By: #### C DP, IOCAL, BMPX, MG, LATOSHA, PT #### [address] [address] Manager Secondary: Leno Walker MD Hemoglobin (Bld) [Mass/Vol] 11.0 g/dL Low 11.9-15.1 [facility] Comment on above: Performed By: #### C DP, IOCAL, BMPX, MG, LATOSHA, PT #### [address] [address] Manager Secondary: Leno Walker MD MCH (RBC) [Entitic mass] 29.1 pg Normal 25.2-33.5 [facility] Comment on above: Performed By: #### C DP, IOCAL, BMPX, MG, LATOSHA, PT #### [address] [address] Manager Secondary: Leno Walker MD MCHC (RBC) [Mass/Vol] 31.3 g/dL Normal 28.4-34.8 [facility] Comment on above: Performed By: #### C DP, IOCAL, BMPX, MG, LATOSHA, PT #### [address] [address] Manager Secondary: Leno Walker MD MCV (RBC) [Entitic vol] 92.9 fL Normal 82.6-102.9 [facility] Comment on above: Performed By: #### C DP, IOCAL, BMPX, MG, LATOSHA, PT #### [address] [address] Manager Secondary: Leno Walker MD NRBC Automated 0.0 per 100 WBC Normal 0.0 [facility] Comment on above: Performed By: #### C DP, IOCAL, BMPX, MG, LATOSHA, PT #### [address] [phone] Manager Secondary: Leno Walker MD Platelet mean volume (Bld) [Entitic vol] 9.5 fL Normal 8.1-13.5 [facility] Comment on above: Performed By: #### C DP, IOCAL, BMPX, MG, LATOSHA, PT #### [address] [address] Manager Secondary: Leno Walker MD Platelets (Bld) [#/Vol] 472 10*3/uL High 138-453 [facility] Comment on above: Performed By: #### C DP, IOCAL, BMPX, MG, LATOSHA, PT #### [address] [address] Manager Secondary: Leno Walker MD RBC (Bld) [#/Vol] 3.78 10*6/uL Low 3.95-5.11 [facility] Comment on above: Performed By: #### C DP, IOCAL, BMPX, MG, LATOSHA, PT #### [address] [address] Manager Secondary: Leno Walker MD WBC (Bld) [#/Vol] 12.3 10*3/uL High 3.5-11.3 [facility] Comment on above: Performed By: #### C DP, IOCAL, BMPX, MG, LATOSHA, PT #### [address] [address] Manager Secondary: Leno Walker MD Basic Metab w/rfx MGon 09-30 Anion gap [Moles/Vol] 11 mmol/L Normal 9-17 [facility] Comment on above: Performed By: #### C DP, IOCAL, BMPX, MG, LATOSHA, PT #### [address] [address] Manager Secondary: Leno Walker MD Calcium [Mass/Vol] 8.8 mg/dL Normal 8.6-10.4 [facility] Comment on above: Performed By: #### C DP, IOCAL, BMPX, MG, LATOSHA, PT #### [facility] [employer] [address] [place] [phone] Manager Secondary: Leno Walker MD Chloride [Moles/Vol] 100 mmol/L Normal 98-107 [facility] Comment on above: Performed By: #### C DP, IOCAL, BMPX, MG, LATOSHA, PT #### [facility] [employer] [address] [place] [phone] Manager Secondary: Leno Walker MD CO2 [Moles/Vol] 25 mmol/L Normal 20-31 [facility] Comment on above: Performed By: #### C DP, IOCAL, BMPX, MG, LATOSHA, PT #### [address] [address] Manager Secondary: Leno Walker MD Creatinine [Mass/Vol] 0.65 mg/dL Normal 0.50-0.90 [facility] Comment on above: Performed By: #### C DP, IOCAL, BMPX, MG, LATOSHA, PT #### [address] [address] Manager Secondary: Leno Walker MD GFR/1.73 sq M.predicted among non-blacks MDRD (S/P/Bld) [Vol rate/Area] mL/min/{1.73_m2} Normal >60 [facility] Comment on above: Result Comment: Effective Jun 26, 2022 These results are not intended for use in patients <18 years of age. eGFR results are calculated without a race factor using the 2020 CKD-EPI equation. Careful clinical correlation is recommended, particularly when comparing to results calculated using previous equations. The CKD-EPI equation is less accurate in patients with extremes of muscle mass, extra-renal metabolism of creatine, excessive creatine ingestion, or following therapy that affects renal tubular secretion. Performed By: #### C DP, IOCAL, BMPX, MG, LATOSHA, PT #### [facility] [employer] [address] [place] [address] [phone] Manager Secondary: Leno Walker MD Glucose [Mass/Vol] 103 mg/dL High 70-99 [facility] Comment on above: Performed By: #### C DP, IOCAL, BMPX, MG, LATOSHA, PT #### [facility] [place], [place] [phone] Manager Secondary: Leno Walker MD Potassium [Moles/Vol] 4.3 mmol/L Normal 3.7-5.3 [facility] Comment on above: Performed By: #### C DP, IOCAL, BMPX, MG, LATOSHA, PT #### [facility] [address] [place] [phone] Manager Secondary: Leno Walker MD Sodium [Moles/Vol] 136 mmol/L Normal 135-144 [facility] Comment on above: Performed By: #### C DP, IOCAL, BMPX, MG, LATOSHA, PT #### [facility] [address] [place] [address] [phone] Manager Secondary: Leno Walker MD Urea nitrogen [Mass/Vol] 7 mg/dL Normal 6-20 [facility] Comment on above: Performed By: #### C DP, IOCAL, BMPX, MG, LATOSHA, PT #### [facility] [address] [place] [address] [phone] Manager Secondary: Leno Walker MD Basic Metabolic Panel w/ Ref pam to MGon 09-30-2022 Anion gap [Moles/Vol] 11 mmol/L 9 - 17 mmol/L [facility] Calcium [Mass/Vol] 8.8 mg/dL 8.6 - 10. 4 mg/dL [facility] Chloride [Moles/Vol] 100 mmol/L 98 - 107 mmol/L [facility] CO2 [Moles/Vol] 25 mmol/L 20 - 31 mmol/L [facility] Creatinine [Mass/Vol] 0.65 mg/dL 0.50 - 0.90 mg/dL [facility] GFR/1.73 sq M.predicted MDRD (S/P/Bld) [Vol rate/Area] - PINF [facility] Comment on above: Effective Jun 26, 2022 These results are not intended for use in patients <18 years of age. eGFR results are calculated without a race factor using the 2020 CKD-EPI equation. Careful clinical correlation is recommended, particularly when comparing to results calculated using previous equations. The CKD-EPI equation is less accurate in patients with extremes of muscle mass, extra-renal metabolism of creatine, excessive creatine ingestion, or following therapy that affects renal tubular secretion. Glucose [Mass/Vol] 103 mg/dL High 70 - 99 mg/dL [facility] Interpretation and review of laboratory results Abnormal [facility] Potassium [Moles/Vol] 4.3 mmol/L 3.7 - 5.3 mmol/L [facility] Sodium [Moles/Vol] 136 mmol/L 135 - 144 mmol/L [facility] Urea nitrogen (BldV) [Mass/Vol] 7 mg/dL 6 - 20 mg/dL [facility] Blood Culture 1on 09-30-2022 Bacteria identified Cx Nom (Unsp spec) NO GROWTH 5 DAYS [facility] Special Requests L AC 10ML [facility] Specimen Description .BLOOD [facility] CBC with Auto Differentialon 09-30-2022 Absolute Eos # 0.00 [facility] Absolute Immature Granulocyte 1.02 High [facility] Absolute Lymph # 1.41 [facility] Absolute Parke # 1.02 High [facility] Basophils (Bld) [#/Vol] 0.00 10*3/uL [facility] Basophils/100 WBC (Bld) 0 % 0 - 2 % [facility] Eosinophils/100 WBC (Bld) 0 % Low 1 - 4 % [facility] Hematocrit (Bld) [Volume fraction] 35.4 % Low 36.3 - 47.1 % [facility] Hemoglobin (Bld) [Mass/Vol] 11.3 g/dL Low 11.9 - 15.1 g/dL [facility] Immature granulocytes/100 WBC (Bld) 8 % High 0 [facility] Interpretation and review of laboratory results Abnormal [facility] Lymphocytes/100 WBC (Bld) 11 % Low 24 - 44 % [facility] MCH (RBC) [Entitic mass] 29.1 pg 25.2 - 33.5 pg [facility] MCHC (RBC) [Mass/Vol] 31.9 g/dL 28.4 - 34.8 g/dL [facility] MCV (RBC) [Entitic vol] 91.2 fL 82.6 - 102.9 fL [facility] Monocytes/100 WBC (Bld) 8 % High 1 - 7 % [facility] Morphology Vazquez (Bld) [Interp] Normal [facility] NRBC Automated 0.0 0.0 per 100 WBC [facility] Platelet distribution width (Bld) [Ratio] 13.1 % 11.8 - 14.4 % [facility] Platelet mean volume (Bld) [Entitic vol] 9.7 fL 8.1 - 13.5 fL [facility] Platelets (Bld) [#/Vol] 448 10*3/uL [facility] RBC (Bld) [#/Vol] 3.88 10*6/uL Low 3.95 - 5.1 1 m/uL [facility] Segmented neutrophils/100 WBC (Bld) 73 % High 36 - 66 % [facility] Segs Absolute 9.35 High [facility] WBC (Bld) [#/Vol] 12.8 10*3/uL High [facility] CBC with Diffon 09-30-2022 Abs. Basophil 0.00 k/uL Normal 0.0-0.2 [facility] Comment on above: Performed By: #### C DP, IOCAL, BMPX, MG, LATOSHA, PT #### [facility] [employer] [facility] [place] [address] Manager Secondary: Leno Walker MD Abs.Imm.Granulocyte 1.02 k/uL High 0.00-0.30 [facility] Comment on above: Performed By: #### C DP, IOCAL, BMPX, MG, LATOSHA, PT #### [address] [address] Manager Secondary: Leno Walker MD Abs.Neutrophil (Seg) 9.35 k/uL High 1.8-7.7 [facility] Comment on above: Performed By: #### C DP, IOCAL, BMPX, MG, LATOSHA, PT #### [place] [address] Manager Secondary: Leno Walker MD Basophils/100 WBC (Bld) 0 % Normal 0-2 [facility] Comment on above: Performed By: #### C DP, IOCAL, BMPX, MG, LATOSHA, PT #### [place] [address] Manager Secondary: Leno Walker MD Eosinophils (Bld) [#/Vol] 0.00 10*3/uL Normal 0.0-0.4 [facility] Comment on above: Performed By: #### C DP, IOCAL, BMPX, MG, LATOSHA, PT #### [place] [address] Manager Secondary: Leno Walker MD Eosinophils/100 WBC (Bld) 0 % Low 1-4 [facility] Comment on above: Performed By: #### C DP, IOCAL, BMPX, MG, LATOSHA, PT #### [address] [address] Manager Secondary: Leno Walker MD Immature granulocytes/100 WBC (Bld) 8 % High 0 [facility] Comment on above: Performed By: #### C DP, IOCAL, BMPX, MG, LATOSHA, PT #### [address] [address] Manager Secondary: Leno Walker MD Lymphocytes (Bld) [#/Vol] 1.41 10*3/uL Normal 1.0-4.8 [facility] Comment on above: Performed By: #### C DP, IOCAL, BMPX, MG, LATOSHA, PT #### [facility] [address] [place] [phone] Manager Secondary: Leno Walker MD Lymphocytes/100 WBC (Bld) 11 % Low 24-44 [facility] Comment on above: Performed By: #### C DP, IOCAL, BMPX, MG, LATOSHA, PT #### [address] [address] Manager Secondary: Leno Walker MD Monocytes (Bld) [#/Vol] 1.02 10*3/uL High 0.1-0.8 [facility] Comment on above: Performed By: #### C DP, IOCAL, BMPX, MG, LATOSHA, PT #### [address] [address] Manager Secondary: Leno Walker MD Monocytes/100 WBC (Bld) 8 % High 1-7 [facility] Comment on above: Performed By: #### C DP, IOCAL, BMPX, MG, LATOSHA, PT #### [address] [address] Manager Secondary: Leno Walker MD Morphology Vazquez (Bld) [Interp] Normal Normal [facility] Comment on above: Performed By: #### C DP, IOCAL, BMPX, MG, LATOSHA, PT #### [address] [address] Manager Secondary: Leno Walker MD Neutrophil (Seg) 73 % High 36-66 [facility] Comment on above: Performed By: #### C DP, IOCAL, BMPX, MG, LATOSHA, PT #### [facility] [employer] [address] [place] [phone] Manager Secondary: Leno Walker MD NRBC Automated 0.0 per 100 WBC Normal 0.0 [facility] Comment on above: Performed By: #### C DP, IOCAL, BMPX, MG, LATOSHA, PT #### [address] [address] Manager Secondary: Leno Walker MD Platelet mean volume (Bld) [Entitic vol] 9.7 fL Normal 8.1-13.5 [facility] Comment on above: Performed By: #### C DP, IOCAL, BMPX, MG, LATOSHA, PT #### [address] [address] Manager Secondary: Leno Walker MD Platelets (Bld) [#/Vol] 448 10*3/uL Normal 138-453 [facility] Comment on above: Performed By: #### C DP, IOCAL, BMPX, MG, LATOSHA, PT #### [address] [address] Manager Secondary: Leno Walker MD WBC (Bld) [#/Vol] 12.8 10*3/uL High 3.5-11.3 [facility] Comment on above: Performed By: #### C DP, IOCAL, BMPX, MG, LATOSHA, PT #### [address] [address] Manager Secondary: Leno Walker MD Erythrocyte distribution width (RBC) [Ratio] 13.1 % Normal 11.8-14.4 [facility] Comment on above: Performed By: #### C DP, IOCAL, BMPX, MG, LATOSHA, PT #### [address] [address] Manager Secondary: Leno Walker MD Hematocrit (Bld) [Volume fraction] 35.4 % Low 36.3-47.1 [facility] Comment on above: Performed By: #### C DP, IOCAL, BMPX, MG, LATOSHA, PT #### [address] [address] Manager Secondary: Leno Walker MD Hemoglobin (Bld) [Mass/Vol] 11.3 g/dL Low 11.9-15.1 [facility] Comment on above: Performed By: #### C DP, IOCAL, BMPX, MG, LATOSHA, PT #### [address] [address] Manager Secondary: Leno Walker MD MCH (RBC) [Entitic mass] 29.1 pg Normal 25.2-33.5 [facility] Comment on above: Performed By: #### C DP, IOCAL, BMPX, MG, LATOSHA, PT #### [address] [address] Manager Secondary: Leno Walker MD MCHC (RBC) [Mass/Vol] 31.9 g/dL Normal 28.4-34.8 [facility] Comment on above: Performed By: #### C DP, IOCAL, BMPX, MG, LATOSHA, PT #### [address] [address] Manager Secondary: Leno Walker MD MCV (RBC) [Entitic vol] 91.2 fL Normal 82.6-102.9 [facility] Comment on above: Performed By: #### C DP, IOCAL, BMPX, MG, LATOSHA, PT #### [address] [address] Manager Secondary: Leno Walker MD RBC (Bld) [#/Vol] 3.88 10*6/uL Low 3.95-5.11 [facility] Comment on above: Performed By: #### C DP, IOCAL, BMPX, MG, LATOSHA, PT #### [facility] [employer] [address] [place] [phone] Manager Secondary: Leno Walker MD Cult, Bloodon 09-30-2022 Cult, Blood Specimen Description .BLOOD Special Requests R HAND 10ML Culture NO GROWTH 5 DAYS Report Status FINAL 09/30/2022 Normal [facility] Comment on above: Performed By: #### C DP, IOCAL, BMPX, MG, LATOSHA, PT #### [address] [address] Manager Secondary: Leno Walker MD Cult,Bloodon 09-30-2022 Cult,Blood Specimen Description .BLOOD Special Requests L AC 10ML Culture NO GROWTH 5 DAYS Report Status FINAL 09/30/2022 Normal [facility] Comment on above: Performed By: #### B C #### [address] [phone] Manager Secondary: Leno Walker MD Culture, Blood 2on 3 Bacteria identified Cx Nom (Unsp spec) NO GROWTH [address] [employer] [employer] Special Requests R HAND 10ML [facility] Specimen Description .BLOOD [facility] M-Factor [facility] Basic Metab w/rfx MGon 09-29 Potassium [Moles/Vol] 3.5 mmol/L Low 3.7-5.3 [facility] Comment on above: Performed By: #### C DP, IOCAL, BMPX, MG, LATOSHA, PT #### [facility] [employer] [address] [place] [address] [phone] Manager Secondary: Leno Walker MD Anion gap [Moles/Vol] 9 mmol/L Normal 9-17 [facility] Comment on above: Performed By: #### C DP, IOCAL, BMPX, MG, LATOSHA, PT #### [facility] [employer] [address] [place] [address] [phone] Manager Secondary: Leno Walker MD Calcium [Mass/Vol] 8.1 mg/dL Low 8.6-10.4 [facility] Comment on above: Performed By: #### C DP, IOCAL, BMPX, MG, LATOSHA, PT #### [address] [address] Manager Secondary: Leno Walker MD Chloride [Moles/Vol] 100 mmol/L Normal 98-107 [facility] Comment on above: Performed By: #### C DP, IOCAL, BMPX, MG, LATOSHA, PT #### [facility] [address] [place] [phone] Manager Secondary: Leno Walker MD CO2 [Moles/Vol] 23 mmol/L Normal 20-31 [facility] Comment on above: Performed By: #### C DP, IOCAL, BMPX, MG, LATOSHA, PT #### [address] [address] Manager Secondary: Leno Walker MD Creatinine [Mass/Vol] 0.57 mg/dL Normal 0.50-0.90 [facility] Comment on above: Performed By: #### C DP, IOCAL, BMPX, MG, LATOSHA, PT #### [address] [address] Manager Secondary: Leno Walker MD GFR/1.73 sq M.predicted among non-blacks MDRD (S/P/Bld) [Vol rate/Area] mL/min/{1.73_m2} Normal >60 [facility] Comment on above: Result Comment: Effective Jun 26, 2022 These results are not intended for use in patients <18 years of age. eGFR results are calculated without a race factor using the 2020 CKD-EPI equation. Careful clinical correlation is recommended, particularly when comparing to results calculated using previous equations. The CKD-EPI equation is less accurate in patients with extremes of muscle mass, extra-renal metabolism of creatine, excessive creatine ingestion, or following therapy that affects renal tubular secretion. Performed By: #### C DP, IOCAL, BMPX, MG, LATOSHA, PT #### [facility] [employer] [address] [place] [address] [phone] Manager Secondary: Leno Walker MD Glucose [Mass/Vol] 122 mg/dL High 70-99 [facility] Comment on above: Performed By: #### C DP, IOCAL, BMPX, MG, LATOSHA, PT #### [facility] [address] [place], [place] [phone] Manager Secondary: Leno Walker MD Sodium [Moles/Vol] 132 mmol/L Low 135-144 [facility] Comment on above: Performed By: #### C DP, IOCAL, BMPX, MG, LATOSHA, PT #### [facility] [address] [place], [place] [phone] Manager Secondary: Leno Walker MD Urea nitrogen [Mass/Vol] 6 mg/dL Normal 6-20 [facility] Comment on above: Performed By: #### C DP, IOCAL, BMPX, MG, LATOSHA, PT #### [facility] [address] [place], [place] [phone] Manager Secondary: Leno Walker MD Basic Metabolic Panel w/ Ref pam to MGon 09-29-2022 Anion gap [Moles/Vol] 9 mmol/L 9 - 17 mmol/L [facility] [employer] Calcium [Mass/Vol] 8.1 mg/dL Low 8.6 - 10. 4 mg/dL [facility] [employer] Chloride [Moles/Vol] 100 mmol/L 98 - 107 mmol/L [facility] [employer] CO2 [Moles/Vol] 23 mmol/L 20 - 31 mmol/L [facility] [employer] Creatinine [Mass/Vol] 0.57 mg/dL 0.50 - 0.90 mg/dL [facility] HOSPITALPrest[facility] [employer] [place] [employer] GFR/1.73 sq M.predicted MDRD (S/P/Bld) [Vol rate/Area] - PINF [facility] Comment on above: Effective Jun 26, 2022 These results are not intended for use in patients <18 years of age. eGFR results are calculated without a race factor using the 2020 CKD-EPI equation. Careful clinical correlation is recommended, particularly when comparing to results calculated using previous equations. The CKD-EPI equation is less accurate in patients with extremes of muscle mass, extra-renal metabolism of creatine, excessive creatine ingestion, or following therapy that affects renal tubular secretion. Glucose [Mass/Vol] 122 mg/dL High 70 - 99 mg/dL [facility] Interpretation and review of laboratory results Abnormal [facility] Potassium [Moles/Vol] 3.5 mmol/L Low 3.7 - 5.3 mmol/L [facility] Sodium [Moles/Vol] 132 mmol/L Low 135 - 144 mmol/L [facility] Urea nitrogen (BldV) [Mass/Vol] 6 mg/dL 6 - 20 mg/dL [facility] CBC with Auto Differentialon 09-29-2022 Absolute Eos # 0.13 [facility] Absolute Immature Granulocyte 0.39 High [facility] Absolute Lymph # 2.97 [facility] Absolute Parke # 1.03 High [facility] Basophils (Bld) [#/Vol] 0.00 10*3/uL [facility] Basophils/100 WBC (Bld) 0 % 0 - 2 % [facility] Eosinophils/100 WBC (Bld) 1 % 1 - 4 % [facility] Hematocrit (Bld) [Volume fraction] 32.0 % Low 36.3 - 47.1 % [facility] Hemoglobin (Bld) [Mass/Vol] 10.1 g/dL Low 11.9 - 15.1 g/dL [facility] Immature granulocytes/100 WBC (Bld) 3 % High 0 [facility] Interpretation and review of laboratory results Abnormal [facility] Lymphocytes/100 WBC (Bld) 23 % Low 24 - 44 % [facility] MCH (RBC) [Entitic mass] 29.5 pg 25.2 - 33.5 pg [facility] MCHC (RBC) [Mass/Vol] 31.6 g/dL 28.4 - 34.8 g/dL [facility] MCV (RBC) [Entitic vol] 93.6 fL 82.6 - 102.9 fL [facility] Monocytes/100 WBC (Bld) 8 % High 1 - 7 % [facility] Morphology Vazquez (Bld) [Interp] Normal [facility] NRBC Automated 0.0 0.0 per 100 WBC [facility] Platelet distribution width (Bld) [Ratio] 13.2 % 11.8 - 14.4 % [facility] Platelet mean volume (Bld) [Entitic vol] 9.8 fL 8.1 - 13.5 fL [facility] Platelets (Bld) [#/Vol] 360 10*3/uL [facility] RBC (Bld) [#/Vol] 3.42 10*6/uL Low 3.95 - 5.1 1 m/uL [facility] Segmented neutrophils/100 WBC (Bld) 65 % 36 - 66 % [facility] Segs Absolute 8.38 High [facility] WBC (Bld) [#/Vol] 12.9 10*3/uL High [facility] CBC with Diffon 09-29-2022 Abs. Basophil 0.00 k/uL Normal 0.0-0.2 [facility] Comment on above: Performed By: #### C DP, IOCAL, BMPX, MG, LATOSHA, PT #### [employer] [address] [place] [address] [phone] Manager Secondary: Leno Walker MD Abs.Imm.Granulocyte 0.39 k/uL High 0.00-0.30 [facility] Comment on above: Performed By: #### C DP, IOCAL, BMPX, MG, LATOSHA, PT #### [employer] [address] [place] [address] [phone] Manager Secondary: Leno Walker MD Abs.Neutrophil (Seg) 8.38 k/uL High 1.8-7.7 [facility] Comment on above: Performed By: #### C DP, IOCAL, BMPX, MG, LATOSHA, PT #### [employer] [address] [place] [address] [phone] Manager Secondary: Leno Walker MD Basophils/100 WBC (Bld) 0 % Normal 0-2 [facility] Comment on above: Performed By: #### C DP, IOCAL, BMPX, MG, LATOSHA, PT #### [address] [address] Manager Secondary: Leno Walker MD Eosinophils (Bld) [#/Vol] 0.13 10*3/uL Normal 0.0-0.4 [facility] Comment on above: Performed By: #### C DP, IOCAL, BMPX, MG, LATOSHA, PT #### [address] [address] Manager Secondary: Leno Walker MD Eosinophils/100 WBC (Bld) 1 % Normal 1-4 [facility] Comment on above: Performed By: #### C DP, IOCAL, BMPX, MG, LATOSHA, PT #### [address] [address] Manager Secondary: Leno Walker MD Immature granulocytes/100 WBC (Bld) 3 % High 0 [facility] Comment on above: Performed By: #### C DP, IOCAL, BMPX, MG, LATOSHA, PT #### [address] [address] Manager Secondary: Leno Walker MD Lymphocytes (Bld) [#/Vol] 2.97 10*3/uL Normal 1.0-4.8 [facility] Comment on above: Performed By: #### C DP, IOCAL, BMPX, MG, LATOSHA, PT #### [facility] [employer] [address] [place] [phone] Manager Secondary: Leno Walker MD Lymphocytes/100 WBC (Bld) 23 % Low 24-44 [facility] Comment on above: Performed By: #### C DP, IOCAL, BMPX, MG, LATOSHA, PT #### [facility] [employer] [address] [place] [phone] Manager Secondary: Leno Walker MD Monocytes (Bld) [#/Vol] 1.03 10*3/uL High 0.1-0.8 [facility] Comment on above: Performed By: #### C DP, IOCAL, BMPX, MG, LATOSHA, PT #### [address] [address] Manager Secondary: Leno Walker MD Monocytes/100 WBC (Bld) 8 % High 1-7 [facility] Comment on above: Performed By: #### C DP, IOCAL, BMPX, MG, LATOSHA, PT #### [place] [address] Manager Secondary: Leno Walker MD Morphology Vazquez (Bld) [Interp] Normal Normal [facility] Comment on above: Performed By: #### C DP, IOCAL, BMPX, MG, LATOSHA, PT #### [place] [address] Manager Secondary: Leno Walker MD Neutrophil (Seg) 65 % Normal 36-66 [facility] Comment on above: Performed By: #### C DP, IOCAL, BMPX, MG, LATOSHA, PT #### [address] [address] Manager Secondary: Leno Walker MD NRBC Automated 0.0 per 100 WBC Normal 0.0 [facility] Comment on above: Performed By: #### C DP, IOCAL, BMPX, MG, LATOSHA, PT #### [address] [address] Manager Secondary: Leno Walker MD Platelet mean volume (Bld) [Entitic vol] 9.8 fL Normal 8.1-13.5 [facility] Comment on above: Performed By: #### C DP, IOCAL, BMPX, MG, LATOSHA, PT #### [address] [address] Manager Secondary: Leno Walker MD Platelets (Bld) [#/Vol] 360 10*3/uL Normal 138-453 [facility] Comment on above: Performed By: #### C DP, IOCAL, BMPX, MG, LATOSHA, PT #### [address] [address] Manager Secondary: Leno Walker MD WBC (Bld) [#/Vol] 12.9 10*3/uL High 3.5-11.3 [facility] Comment on above: Performed By: #### C DP, IOCAL, BMPX, MG, LATOSHA, PT #### [address] [address] Manager Secondary: Leno Walker MD Erythrocyte distribution width (RBC) [Ratio] 13.2 % Normal 11.8-14.4 [facility] Comment on above: Performed By: #### C DP, IOCAL, BMPX, MG, LATOSHA, PT #### [address] [address] Manager Secondary: Leno Walker MD Hematocrit (Bld) [Volume fraction] 32.0 % Low 36.3-47.1 [facility] Comment on above: Performed By: #### C DP, IOCAL, BMPX, MG, LATOSHA, PT #### [address] [address] Manager Secondary: Leno Walker MD Hemoglobin (Bld) [Mass/Vol] 10.1 g/dL Low 11.9-15.1 [facility] Comment on above: Performed By: #### C DP, IOCAL, BMPX, MG, LATOSHA, PT #### [address] [address] Manager Secondary: Leno Walker MD MCH (RBC) [Entitic mass] 29.5 pg Normal 25.2-33.5 [facility] Comment on above: Performed By: #### C DP, IOCAL, BMPX, MG, LATOSHA, PT #### [facility] [address] [place] [address] [phone] Manager Secondary: Leno Walker MD MCHC (RBC) [Mass/Vol] 31.6 g/dL Normal 28.4-34.8 [facility] Comment on above: Performed By: #### C DP, IOCAL, BMPX, MG, LATOSHA, PT #### [employer] [address] [place] [phone] Manager Secondary: Leno Walker MD MCV (RBC) [Entitic vol] 93.6 fL Normal 82.6-102.9 [facility] Comment on above: Performed By: #### C DP, IOCAL, BMPX, MG, LATOSHA, PT #### [facility] [address] [place] [address] [phone] Manager Secondary: Leno Walker MD RBC (Bld) [#/Vol] 3.42 10*6/uL Low 3.95-5.11 [facility] Comment on above: Performed By: #### C DP, IOCAL, BMPX, MG, LATOSHA, PT #### [facility] [address] [place] [phone] Manager Secondary: Leno Walker MD Magnesiumon 09-29-2022 Magnesium [Mass/Vol] 2.1 mg/dL Normal 1.6-2.6 [facility] Comment on above: Performed By: #### C DP, IOCAL, BMPX, MG, LATOSHA, PT #### [facility] [address] [place] [phone] Manager Secondary: Leno Walker MD Magnesium [Mass/Vol] 2.1 mg/dL 1.6 - 2.6 mg/dL [facility] Basic Metab w/rfx MGon 09-28 Anion gap [Moles/Vol] 10 mmol/L Normal 9-17 [facility] Comment on above: Performed By: #### U RC #### [address] [address] Manager Secondary: Leno Walker MD Calcium [Mass/Vol] 8.0 mg/dL Low 8.6-10.4 [facility] Comment on above: Performed By: #### U RC #### [address] [address] Manager Secondary: Leno Walker MD Chloride [Moles/Vol] 103 mmol/L Normal 98-107 [facility] Comment on above: Performed By: #### U RC #### [address] [address] Manager Secondary: Leno Walker MD CO2 [Moles/Vol] 25 mmol/L Normal 20-31 [facility] Comment on above: Performed By: #### U RC #### [address] [address] Manager Secondary: Leno Walker MD Creatinine [Mass/Vol] 0.56 mg/dL Normal 0.50-0.90 [facility] Comment on above: Performed By: #### U RC #### [address] [address] Manager Secondary: Leno Walker MD GFR/1.73 sq M.predicted among non-blacks MDRD (S/P/Bld) [Vol rate/Area] mL/min/{1.73_m2} Normal >60 [facility] Comment on above: Result Comment: Effective Jun 26, 2022 These results are not intended for use in patients <18 years of age. eGFR results are calculated without a race factor using the 2020 CKD-EPI equation. Careful clinical correlation is recommended, particularly when comparing to results calculated using previous equations. The CKD-EPI equation is less accurate in patients with extremes of muscle mass, extra-renal metabolism of creatine, excessive creatine ingestion, or following therapy that affects renal tubular secretion. Performed By: #### U RC #### [address] [address] Manager Secondary: Leno Walker MD Glucose [Mass/Vol] 105 mg/dL High 70-99 [facility] Comment on above: Performed By: #### U RC #### [address] [address] Manager Secondary: Leno Walker MD Potassium [Moles/Vol] 3.7 mmol/L Normal 3.7-5.3 [facility] Comment on above: Performed By: #### U RC #### [address] [address] Manager Secondary: Leno Walker MD Sodium [Moles/Vol] 138 mmol/L Normal 135-144 [facility] Comment on above: Performed By: #### U RC #### [address] [address] Manager Secondary: Leno Walker MD Urea nitrogen [Mass/Vol] 5 mg/dL Low 6-20 [facility] Comment on above: Performed By: #### U RC #### [address] [address] Manager Secondary: Leno Walker MD Basic Metabolic Panel w/ Ref pam to MGon 09-28-2022 Anion gap [Moles/Vol] 10 mmol/L 9 - 17 mmol/L [facility] Calcium [Mass/Vol] 8.0 mg/dL Low 8.6 - 10. 4 mg/dL [facility] Chloride [Moles/Vol] 103 mmol/L 98 - 107 mmol/L [facility] CO2 [Moles/Vol] 25 mmol/L 20 - 31 mmol/L [facility] Creatinine [Mass/Vol] 0.56 mg/dL 0.50 - 0.90 mg/dL [facility] GFR/1.73 sq M.predicted MDRD (S/P/Bld) [Vol rate/Area] - PINF [facility] Comment on above: Effective Jun 26, 2022 These results are not intended for use in patients <18 years of age. eGFR results are calculated without a race factor using the 2020 CKD-EPI equation. Careful clinical correlation is recommended, particularly when comparing to results calculated using previous equations. The CKD-EPI equation is less accurate in patients with extremes of muscle mass, extra-renal metabolism of creatine, excessive creatine ingestion, or following therapy that affects renal tubular secretion. Glucose [Mass/Vol] 105 mg/dL High 70 - 99 mg/dL [facility] Interpretation and review of laboratory results Abnormal [facility] Potassium [Moles/Vol] 3.7 mmol/L 3.7 - 5.3 mmol/L [facility] Sodium [Moles/Vol] 138 mmol/L 135 - 144 mmol/L [facility] Urea nitrogen (BldV) [Mass/Vol] 5 mg/dL Low 6 - 20 mg/dL [facility] CBC with Auto Differentialon 09-28-2022 Absolute Eos # 0.00 [facility] Absolute Immature Granulocyte 0.13 [facility] Absolute Lymph # 2.55 [facility] Absolute Parke # 1.34 High [facility] Basophils (Bld) [#/Vol] 0.27 10*3/uL High [facility] Basophils/100 WBC (Bld) 2 % 0 - 2 % [facility] Eosinophils/100 WBC (Bld) 0 % Low 1 - 4 % [facility] Hematocrit (Bld) [Volume fraction] 29.0 % Low 36.3 - 47.1 % [facility] Hemoglobin (Bld) [Mass/Vol] 9.5 g/dL Low 11.9 - 15.1 g/dL [facility] Immature granulocytes/100 WBC (Bld) 1 % High 0 [facility] Interpretation and review of laboratory results Abnormal [facility] Lymphocytes/100 WBC (Bld) 19 % Low 24 - 44 % [facility] MCH (RBC) [Entitic mass] 29.8 pg 25.2 - 33.5 pg [facility] MCHC (RBC) [Mass/Vol] 32.8 g/dL 28.4 - 34.8 g/dL [facility] MCV (RBC) [Entitic vol] 90.9 fL 82.6 - 102.9 fL [facility] Monocytes/100 WBC (Bld) 10 % High 1 - 7 % [facility] Morphology Vazquez (Bld) [Interp] Normal [facility] NRBC Automated 0.0 0.0 per 100 WBC [facility] Platelet distribution width (Bld) [Ratio] 13.2 % 11.8 - 14.4 % [facility] Platelet mean volume (Bld) [Entitic vol] 10.0 fL 8.1 - 13.5 fL [facility] Platelets (Bld) [#/Vol] 310 10*3/uL [facility] RBC (Bld) [#/Vol] 3.19 10*6/uL Low 3.95 - 5.1 1 m/uL [facility] Segmented neutrophils/100 WBC (Bld) 68 % High 36 - 66 % [facility] Segs Absolute 9.11 High [facility] WBC (Bld) [#/Vol] 13.4 10*3/uL High [facility] CBC with Diffon 09-28-2022 Abs. Basophil 0.27 k/uL High 0.0-0.2 [facility] Comment on above: Performed By: #### U RC #### [employer] [facility] [place] [phone] Manager Secondary: Leno Walker MD Abs.Imm.Granulocyte 0.13 k/uL Normal 0.00-0.30 [facility] Comment on above: Performed By: #### U RC #### [employer] [facility] [place], [place] [phone] Manager Secondary: Leno Walker MD Abs.Neutrophil (Seg) 9.11 k/uL High 1.8-7.7 [facility] Comment on above: Performed By: #### U RC #### [address] [address] Manager Secondary: Leno Walker MD Basophils/100 WBC (Bld) 2 % Normal 0-2 [facility] Comment on above: Performed By: #### U RC #### [address] [address] Manager Secondary: Leno Walker MD Eosinophils (Bld) [#/Vol] 0.00 10*3/uL Normal 0.0-0.4 [facility] Comment on above: Performed By: #### U RC #### [address] [address] Manager Secondary: Leno Walker MD Eosinophils/100 WBC (Bld) 0 % Low 1-4 [facility] Comment on above: Performed By: #### U RC #### [address] [address] Manager Secondary: Leno Walker MD Immature granulocytes/100 WBC (Bld) 1 % High 0 [facility] Comment on above: Performed By: #### U RC #### [address] [address] Manager Secondary: Leno Walker MD Lymphocytes (Bld) [#/Vol] 2.55 10*3/uL Normal 1.0-4.8 [facility] Comment on above: Performed By: #### U RC #### [address] [address] Manager Secondary: Leno Walker MD Lymphocytes/100 WBC (Bld) 19 % Low 24-44 [facility] Comment on above: Performed By: #### U RC #### [address] [address] Manager Secondary: Leno Walker MD Monocytes (Bld) [#/Vol] 1.34 10*3/uL High 0.1-0.8 [facility] Comment on above: Performed By: #### U RC #### [address] [address] Manager Secondary: Leno Walker MD Monocytes/100 WBC (Bld) 10 % High 1-7 [facility] Comment on above: Performed By: #### U RC #### [address] [address] Manager Secondary: Leno Walker MD Morphology Vazquez (Bld) [Interp] Normal Normal [facility] Comment on above: Performed By: #### U RC #### [address] [address] Manager Secondary: Leno Walker MD Neutrophil (Seg) 68 % High 36-66 [facility] Comment on above: Performed By: #### U RC #### [address] [address] Manager Secondary: Leno Walker MD Erythrocyte distribution width (RBC) [Ratio] 13.2 % Normal 11.8-14.4 [facility] Comment on above: Performed By: #### U RC #### [address] [address] Manager Secondary: Leno Walker MD Hematocrit (Bld) [Volume fraction] 29.0 % Low 36.3-47.1 [facility] Comment on above: Performed By: #### U RC #### [address] [address] Manager Secondary: Leno Walker MD Hemoglobin (Bld) [Mass/Vol] 9.5 g/dL Low 11.9-15.1 [facility] Comment on above: Performed By: #### U RC #### [address] [address] Manager Secondary: Leno Walker MD MCH (RBC) [Entitic mass] 29.8 pg Normal 25.2-33.5 [facility] Comment on above: Performed By: #### U RC #### [address] [address] Manager Secondary: Leno Walker MD MCHC (RBC) [Mass/Vol] 32.8 g/dL Normal 28.4-34.8 [facility] Comment on above: Performed By: #### U RC #### [address] [address] Manager Secondary: Leno Walker MD MCV (RBC) [Entitic vol] 90.9 fL Normal 82.6-102.9 [facility] Comment on above: Performed By: #### U RC #### [address] [address] Manager Secondary: Leno Walker MD NRBC Automated 0.0 per 100 WBC Normal 0.0 [facility] Comment on above: Performed By: #### U RC #### [address] [address] Manager Secondary: Leno Walker MD Platelet mean volume (Bld) [Entitic vol] 10.0 fL Normal 8.1-13.5 [facility] Comment on above: Performed By: #### U RC #### [address] [address] Manager Secondary: Leno Walker MD Platelets (Bld) [#/Vol] 310 10*3/uL Normal 138-453 [facility] Comment on above: Performed By: #### U RC #### [address] [address] Manager Secondary: Leno Walker MD RBC (Bld) [#/Vol] 3.19 10*6/uL Low 3.95-5.11 [facility] Comment on above: Performed By: #### U RC #### [facility] [address] [place], [place] [phone] Manager Secondary: Leno Walker MD WBC (Bld) [#/Vol] 13.4 10*3/uL High 3.5-11.3 [facility] Comment on above: Performed By: #### U RC #### [employer] [address] [place], [place] [phone] Manager Secondary: Leno Walker MD CT ABDOMEN PELVIS W IV CONTR [place] 09-28-2022 CT ABDOMEN PELVIS W IV CONTRAST EXAMINATION: CT OF THE ABDOMEN AND PELVIS WITH CONTRAST 09/28/2022 1:21 am TECHNIQUE: CT of the abdomen and pelvis was performed with the administration of intravenous contrast. Multiplanar reformatted images are provided for review. Automated exposure control, iterative reconstruction, and/or weight based adjustment of the mA/kV was utilized to reduce the radiation dose to as low as reasonably achievable. COMPARISON: CT abdomen and pelvis 09/25/2022 HISTORY: ORDERING SYSTEM PROVIDED HISTORY: appendicitis TECHNOLOGIST PROVIDED HISTORY: appendicitis FINDINGS: Lower Chest: Small bilateral pleural effusions with atelectasis. Organs: No focal hepatic lesions. Focal fat near the falciform ligament. Unremarkable gallbladder. No intrahepatic or extrahepatic biliary ductal dilatation. Unremarkable pancreas, spleen, adrenal glands. Kidneys enhance symmetrically, no hydronephrosis. GI/Bowel: Acute perforated appendicitis, with fluid, stranding, and air adjacent to the appendix. Appendix diameter measures up to 16 mm in diameter, similar to prior. Fluid collection adjacent to the appendix is increased in size without an enhancing wall, for reference axial image 120 fluid collection measures 6.3 x 3.7 x 4.9 cm, previously 4.3 x 2.7 x 3.1 cm. Oral contrast is visualized throughout the large and small bowel, no obstruction. Wall thickening of the terminal ileum/ascending colon, similar to prior and likely reactive. Pelvis: Unchanged fat containing mass left adnexa measuring 7.8 x 7.0 cm (2:45). IUD in place. No bladder wall thickening. Peritoneum/Retroperit oneum: No adenopathy. Unremarkable vasculature. Bones/Soft Tissues: No suspicious osseous lesions. No acute fracture. IMPRESSION: Sequela of perforated appendicitis. Increased inflammatory changes adjacent to the appendix, including increased fluid collection adjacent to the appendix without an enhancing wall. No abscess. Wall thickening of the ascending colon and terminal ileum, similar to prior and likely reactive. No bowel obstruction. Unchanged large fat containing mass in the left adnexa, recommend non urgent outpatient gynecology follow-up. Interpreted by: Festus Jeffries MD Signed by: Festus Jeffries MD 09/28/22 Final result Normal [facility] CT ABDOMEN PELVIS W IV CONTR AST Additional Contrast? Oralon 09-28-2022 Sequela of perforate d appendicitis. Increased inflammatory changes adjacent to the appendix, including increased fluid collection adjacent to the appendix without an enhancing wall. No abscess. Wall thickening of the ascending colon and terminal ileum, similar to prior and likely reactive. No bowel obstruction. Unchanged large fat containing mass in the left adnexa, recommend non urgent outpatient gynecology follow-up. [facility] RIS CONSOLID[facility] EXAMINATION: CT OF THE ABDOMEN AND PELVIS WITH CONTRAST 09/28/2022 1:21 am TECHNIQUE: CT of the abdomen and pelvis was performed with the administration of intravenous contrast. Multiplanar reformatted images are provided for review. Automated exposure control, iterative reconstruction, and/or weight based adjustment of the mA/kV was utilized to reduce the radiation dose to as low as reasonably achievable. COMPARISON: CT abdomen and pelvis 09/25/2022 HISTORY: ORDERING SYSTEM PROVIDED HISTORY: appendicitis TECHNOLOGIST PROVIDED HISTORY: appendicitis FINDINGS: Lower Chest: Small bilateral pleural effusions with atelectasis. Organs: No focal hepatic lesions. Focal fat near the falciform ligament. Unremarkable gallbladder. No intrahepatic or extrahepatic biliary ductal dilatation. Unremarkable pancreas, spleen, adrenal glands. Kidneys enhance symmetrically, no hydronephrosis. GI/Bowel: Acute perforated appendicitis, with fluid, stranding, and air adjacent to the appendix. Appendix diameter measures up to 16 mm in diameter, similar to prior. Fluid collection adjacent to the appendix is increased in size without an enhancing wall, for reference axial image 120 fluid collection measures 6.3 x 3.7 x 4.9 cm, previously 4.3 x 2.7 x 3.1 cm. Oral contrast is visualized throughout the large and small bowel, no obstruction. Wall thickening of the terminal ileum/ascending colon, similar to prior and likely reactive. Pelvis: Unchanged fat containing mass left adnexa measuring 7.8 x 7.0 cm (2:45). IUD in place. No bladder wall thickening. Peritoneum/Retroperit oneum: No adenopathy. Unremarkable vasculature. Bones/Soft Tissues: No suspicious osseous lesions. No acute fracture. [facility] RIS CONSOLIDATED Festus Jeffries MD - 09/28/2022 EXAMINATION: CT OF THE ABDOMEN AND PELVIS WITH CONTRAST 09/28/2022 1:21 am TECHNIQUE: CT of the abdomen and pelvis was performed with the administration of intravenous contrast. Multiplanar reformatted images are provided for review. Automated exposure control, iterative reconstruction, and/or weight based adjustment of the mA/kV was utilized to reduce the radiation dose to as low as reasonably achievable. COMPARISON: CT abdomen and pelvis 09/25/2022 HISTORY: ORDERING SYSTEM PROVIDED HISTORY: appendicitis TECHNOLOGIST PROVIDED HISTORY: appendicitis FINDINGS: Lower Chest: Small bilateral pleural effusions with atelectasis. Organs: No focal hepatic lesions. Focal fat near the falciform ligament. Unremarkable gallbladder. No intrahepatic or extrahepatic biliary ductal dilatation. Unremarkable pancreas, spleen, adrenal glands. Kidneys enhance symmetrically, no hydronephrosis. GI/Bowel: Acute perforated appendicitis, with fluid, stranding, and air adjacent to the appendix. Appendix diameter measures up to 16 mm in diameter, similar to prior. Fluid collection adjacent to the appendix is increased in size without an enhancing wall, for reference axial image 120 fluid collection measures 6.3 x 3.7 x 4.9 cm, previously 4.3 x 2.7 x 3.1 cm. Oral contrast is visualized throughout the large and small bowel, no obstruction. Wall thickening of the terminal ileum/ascending colon, similar to prior and likely reactive. Pelvis: Unchanged fat containing mass left adnexa measuring 7.8 x 7.0 cm (2:45). IUD in place. No bladder wall thickening. Peritoneum/Retroperit oneum: No adenopathy. Unremarkable vasculature. Bones/Soft Tissues: No suspicious osseous lesions. No acute fracture. IMPRESSION: Sequela of perforated appendicitis. Increased inflammatory changes adjacent to the appendix, including increased fluid collection adjacent to the appendix without an enhancing wall. No abscess. Wall thickening of the ascending colon and terminal ileum, similar to prior and likely reactive. No bowel obstruction. Unchanged large fat containing mass in the left adnexa, recommend non urgent outpatient gynecology follow-up. [facility] Phone: Radiology Study observation (narrative) [facility] Phone: CT ABDOMEN PELVIS W IV CONTR AST Additional Contrast? OralOrdered By: Festus Jeffries on 09-28-2022 [facility] Phone: Basic Metab w/rfx MGon 09-27 Anion gap [Moles/Vol] 8 mmol/L Low 9-17 [facility] Comment on above: Performed By: #### B MPX, CDP, MG #### [employer] [address] [place] [phone] Manager Secondary: Leno Walker MD Calcium [Mass/Vol] 7.9 mg/dL Low 8.6-10.4 [facility] Comment on above: Performed By: #### B MPX, CDP, MG #### [employer] [address] [place] [phone] Manager Secondary: Leno Walker MD Chloride [Moles/Vol] 103 mmol/L Normal 98-107 [facility] Comment on above: Performed By: #### B MPX, CDP, MG #### [employer] [address] [place] [address] [phone] Manager Secondary: Leno Walker MD CO2 [Moles/Vol] 25 mmol/L Normal 20-31 [facility] Comment on above: Performed By: #### B MPX, CDP, MG #### [employer] [address] [place] [address] [phone] Manager Secondary: Leno Walker MD Creatinine [Mass/Vol] 0.57 mg/dL Normal 0.50-0.90 [facility] Comment on above: Performed By: #### B MPX, CDP, MG #### [address] [address] Manager Secondary: Leno Walker MD GFR/1.73 sq M.predicted among non-blacks MDRD (S/P/Bld) [Vol rate/Area] mL/min/{1.73_m2} Normal >60 [facility] Comment on above: Result Comment: Effective Jun 26, 2022 These results are not intended for use in patients <18 years of age. eGFR results are calculated without a race factor using the 2020 CKD-EPI equation. Careful clinical correlation is recommended, particularly when comparing to results calculated using previous equations. The CKD-EPI equation is less accurate in patients with extremes of muscle mass, extra-renal metabolism of creatine, excessive creatine ingestion, or following therapy that affects renal tubular secretion. Performed By: #### B MPX, CDP, MG #### [facility] [employer] [address] [place] [phone] Manager Secondary: Leno Walker MD Glucose [Mass/Vol] 131 mg/dL High 70-99 [facility] Comment on above: Performed By: #### B MPX, CDP, MG #### [facility] [employer] [address] [place] [phone] Manager Secondary: Leno Walker MD Potassium [Moles/Vol] 3.2 mmol/L Low 3.7-5.3 [facility] Comment on above: Performed By: #### B MPX, CDP, MG #### [facility] [employer] [address] [place] [address] [phone] Manager Secondary: Leno Walker MD Sodium [Moles/Vol] 136 mmol/L Normal 135-144 [facility] Comment on above: Performed By: #### B MPX, CDP, MG #### [facility] [address] [place] [address] [phone] Manager Secondary: Leno Walker MD Urea nitrogen [Mass/Vol] 6 mg/dL Normal 6-20 [facility] Comment on above: Performed By: #### B MPX, CDP, MG #### [facility] [address] [place] [address] Manager Secondary: Leno Walker MD Basic Metabolic Panel w/ Ref pam to MGon 09-27-2022 Anion gap [Moles/Vol] 8 mmol/L Low 9 - 17 mmol/L [facility] Calcium [Mass/Vol] 7.9 mg/dL Low 8.6 - 10. 4 mg/dL [facility] Chloride [Moles/Vol] 103 mmol/L 98 - 107 mmol/L [facility] CO2 [Moles/Vol] 25 mmol/L 20 - 31 mmol/L [facility] Creatinine [Mass/Vol] 0.57 mg/dL 0.50 - 0.90 mg/dL [facility] GFR/1.73 sq M.predicted MDRD (S/P/Bld) [Vol rate/Area] - PINF [facility] Comment on above: Effective Jun 26, 2022 These results are not intended for use in patients <18 years of age. eGFR results are calculated without a race factor using the 2020 CKD-EPI equation. Careful clinical correlation is recommended, particularly when comparing to results calculated using previous equations. The CKD-EPI equation is less accurate in patients with extremes of muscle mass, extra-renal metabolism of creatine, excessive creatine ingestion, or following therapy that affects renal tubular secretion. Glucose [Mass/Vol] 131 mg/dL High 70 - 99 mg/dL [facility] Interpretation and review of laboratory results Abnormal [facility] Potassium [Moles/Vol] 3.2 mmol/L Low 3.7 - 5.3 mmol/L [facility] Sodium [Moles/Vol] 136 mmol/L 135 - 144 mmol/L [facility] Urea nitrogen (BldV) [Mass/Vol] 6 mg/dL 6 - 20 mg/dL [facility] CBC with Auto Differentialon 09-27-2022 Absolute Eos # 0.15 [facility] Immature Granulocyte 0.34 High [facility] Absolute Lymph # 1.47 [facility] Absolute Parke # 0.92 [facility] [employer] Basophils (Bld) [#/Vol] 0.10 10*3/uL [facility] Basophils/100 WBC (Bld) 1 % 0 - 2 % [facility] Eosinophils/100 WBC (Bld) 1 % 1 - 4 % [facility] Hematocrit (Bld) [Volume fraction] 29.4 % Low 36.3 - 47.1 % [facility] Hemoglobin (Bld) [Mass/Vol] 9.6 g/dL Low 11.9 - 15.1 g/dL [facility] Immature granulocytes/100 WBC (Bld) 3 % High 0 [facility] Interpretation and review of laboratory results Abnormal [facility] Lymphocytes/100 WBC (Bld) 11 % Low 24 - 43 % [facility] MCH (RBC) [Entitic mass] 29.2 pg 25.2 - 33.5 pg [facility] MCHC (RBC) [Mass/Vol] 32.7 g/dL 28.4 - 34.8 g/dL [facility] MCV (RBC) [Entitic vol] 89.4 fL 82.6 - 102.9 fL [facility] Monocytes/100 WBC (Bld) 7 % 3 - 12 % [facility] NRBC Automated 0.0 0.0 per 100 WBC [facility] Platelet distribution width (Bld) [Ratio] 13.0 % 11.8 - 14.4 % [facility] Platelet mean volume (Bld) [Entitic vol] 9.8 fL 8.1 - 13.5 fL [facility] Platelets (Bld) [#/Vol] 288 10*3/uL [facility] RBC (Bld) [#/Vol] 3.29 10*6/uL Low 3.95 - 5.1 1 m/uL [facility] Segmented neutrophils/100 WBC (Bld) 77 % High 36 - 65 % [facility] Segs Absolute 10.05 High [facility] WBC (Bld) [#/Vol] 13.0 10*3/uL High [facility] CBC with Diffon 09-27-2022 Abs. Basophil 0.10 k/uL Normal 0.00-0.20 [facility] Comment on above: Performed By: #### B MPX, CDP, MG #### [facility] [employer] [address] [place] [phone] Manager Secondary: Leno Walker MD Abs.Imm.Granulocyte 0.34 k/uL High 0.00-0.30 [facility] Comment on above: Performed By: #### B MPX, CDP, MG #### [facility] [employer] [address] [place] [address] [phone] Manager Secondary: Leno Walker MD Abs.Neutrophil (Seg) 10.05 k/uL High 1.50-8.10 [facility] Comment on above: Performed By: #### B MPX, CDP, MG #### [address] [address] Manager Secondary: Leno Walker MD Basophils/100 WBC (Bld) 1 % Normal 0-2 [facility] Comment on above: Performed By: #### B MPX, CDP, MG #### [address] [address] Manager Secondary: Leno Walker MD Eosinophils (Bld) [#/Vol] 0.15 10*3/uL Normal 0.00-0.44 [facility] Comment on above: Performed By: #### B MPX, CDP, MG #### [facility] [employer] [address] [place] [phone] Manager Secondary: Leno Walker MD Eosinophils/100 WBC (Bld) 1 % Normal 1-4 [facility] Comment on above: Performed By: #### B MPX, CDP, MG #### [facility] [employer] [address] [place] [address] [phone] Manager Secondary: Leno Walker MD Erythrocyte distribution width (RBC) [Ratio] 13.0 % Normal 11.8-14.4 [facility] Comment on above: Performed By: #### B MPX, CDP, MG #### [facility] [address] [place] [address] [phone] Manager Secondary: Leno Walker MD Hematocrit (Bld) [Volume fraction] 29.4 % Low 36.3-47.1 [facility] Comment on above: Performed By: #### B MPX, CDP, MG #### [facility] [address] [place] [address] Manager Secondary: Leno Walker MD Hemoglobin (Bld) [Mass/Vol] 9.6 g/dL Low 11.9-15.1 [facility] Comment on above: Performed By: #### B MPX, CDP, MG #### [place] [address] Manager Secondary: Leno Walker MD Immature granulocytes/100 WBC (Bld) 3 % High 0 [facility] Comment on above: Performed By: #### B MPX, CDP, MG #### [place] [address] Manager Secondary: Leno Walker MD Lymphocytes (Bld) [#/Vol] 1.47 10*3/uL Normal 1.10-3.70 [facility] Comment on above: Performed By: #### B MPX, CDP, MG #### [facility] [employer] [address] [place] [address] Manager Secondary: Leno Walker MD Lymphocytes/100 WBC (Bld) 11 % Low 24-43 [facility] Comment on above: Performed By: #### B MPX, CDP, MG #### [place] [address] Manager Secondary: Leno Walker MD MCH (RBC) [Entitic mass] 29.2 pg Normal 25.2-33.5 [facility] Comment on above: Performed By: #### B MPX, CDP, MG #### [facility] [employer] [address] [place] [address] [phone] Manager Secondary: Leno Walker MD MCHC (RBC) [Mass/Vol] 32.7 g/dL Normal 28.4-34.8 [facility] Comment on above: Performed By: #### B MPX, CDP, MG #### [facility] [employer] [address] [place] [address] [phone] Manager Secondary: Leno Walker MD MCV (RBC) [Entitic vol] 89.4 fL Normal 82.6-102.9 [facility] Comment on above: Performed By: #### B MPX, CDP, MG #### [facility] [employer] [address] [place] [address] [phone] Manager Secondary: Leno Walker MD Monocytes (Bld) [#/Vol] 0.92 10*3/uL Normal 0.10-1.20 [facility] Comment on above: Performed By: #### B MPX, CDP, MG #### [address] [address] Manager Secondary: Leno Walker MD Monocytes/100 WBC (Bld) 7 % Normal 3-12 [facility] Comment on above: Performed By: #### B MPX, CDP, MG #### [facility] [employer] [address] [place] [address] 76719 Manager Secondary: Leno Walker MD Neutrophil (Seg) 77 % High 36-65 [facility] Comment on above: Performed By: #### B MPX, CDP, MG #### [facility] [employer] [address] [place] [address] 86974 Manager Secondary: Leno Walker MD NRBC Automated 0.0 per 100 WBC Normal 0.0 [facility] Comment on above: Performed By: #### B MPX, CDP, MG #### [facility] [employer] [address] [place] [address] [phone] Manager Secondary: Leno Walker MD Platelet mean volume (Bld) [Entitic vol] 9.8 fL Normal 8.1-13.5 [facility] Comment on above: Performed By: #### B MPX, CDP, MG #### [facility] [address] [place] [address] [phone] Manager Secondary: Leno Walker MD Platelets (Bld) [#/Vol] 288 10*3/uL Normal 138-453 [facility] Comment on above: Performed By: #### B MPX, CDP, MG #### [facility] [employer] [address] [place] [address] 48245 Manager Secondary: Leno Walker MD RBC (Bld) [#/Vol] 3.29 10*6/uL Low 3.95-5.11 [facility] Comment on above: Performed By: #### B MPX, CDP, MG #### [facility] [employer] [address] [place] [address] 46429 Manager Secondary: Leno Walker MD WBC (Bld) [#/Vol] 13.0 10*3/uL High 3.5-11.3 [facility] Comment on above: Performed By: #### B MPX, CDP, MG #### [facility] [employer] [address] [place] [address] [phone] Manager Secondary: Leno Walker MD Magnesiumon 09-27-2022 Magnesium [Mass/Vol] 2.1 mg/dL Normal 1.6-2.6 [facility] Comment on above: Performed By: #### U RC #### [facility] [employer] [address] [place] [address] [phone] Manager Secondary: Leno Walker MD Magnesium [Mass/Vol] 2.1 mg/dL 1.6 - 2.6 mg/dL [facility] PAP ACOG PANEL 2: 30 to 65on 09-27-2022 . . Normal [facility] Comment on above: Result Comment: Perf ormed at: [facility] Performed By: #### C BC #### [facility] [address] [address] [address] Steve Olsen Age Gdln ACOG Testing 30-65 [facility] Comment on above: Performed By: #### C BC #### [facility] [address] [address] [address] Steve Olsen DIAGNOSIS: Comment Normal [facility] Comment on above: Result Comment: NEGA TIVE FOR INTRAEPITHELIAL LESION OR MALIGNANCY. Performed at: [facility] Performed By: #### C BC #### [facility] [address] [address] [address] Steve Olsen HPV Aptima Negative Normal Negative [facility] Comment on above: Result Comment: This nucleic acid amplification test detects fourteen high-risk HPV types (16,18,31,33,35,39,45,51,52,56,58,59,66,68) without differentiation. Performed at: =G Performed By: #### C BC #### [facility] [address] [address] [address] Steve Olsen HPV Genotype Reflex Comment Normal [facility] Comment on above: Result Comment: Crit eria not met, HPV Genotype not performed. Performed at: [facility] Performed By: #### C BC #### [facility] [address] [address] [address] Steve Olsen Methodology: Comment [facility] Comment on above: Result Comment: This liquid based ThinPrep(R) pap test was screened with the use of an image guided system. Performed at: [facility] Performed By: #### C BC #### [facility] [address] [address] [address] Steve Olsen Note: Comment Normal [facility] Comment on above: Result Comment: The Pap smear is a screening test designed to aid in the detection of premalignant and malignant conditions of the uterine cervix. It is not a diagnostic procedure and should not be used as the sole means of detecting cervical cancer. Both false-positive and false-negative reports do occur. . Performed at: [facility] Performed By: #### C BC #### [facility] [phone] Steve Olsen Performed by: Comment Normal [facility] Comment on above: Result Comment: Eliud Luis, [place] (ASCP) Performed at: [facility] Performed By: #### C BC #### [facility] [phone] Steve Olsen Specimen adequacy: Comment Normal [facility] Comment on above: Result Comment: Sati sfactory for evaluation. Endocervical and/or squamous metaplastic cells (endocervical component) are present. Performed at: [facility] Performed By: #### C BC #### [facility] [phone] Steve Olsen Basic Metab w/rfx MGon 09-26 Anion gap [Moles/Vol] 11 mmol/L Normal 9-17 [facility] Comment on above: Performed By: #### C DP, IOCAL, BMPX, MG, LATOSHA, PT #### [place] [address] Manager Secondary: Leno Walker MD Calcium [Mass/Vol] 8.2 mg/dL Low 8.6-10.4 [facility] Comment on above: Performed By: #### C DP, IOCAL, BMPX, MG, LATOSHA, PT #### [address] [address] Manager Secondary: Leno Walker MD Chloride [Moles/Vol] 103 mmol/L Normal 98-107 [facility] Comment on above: Performed By: #### C DP, IOCAL, BMPX, MG, LATOSHA, PT #### [facility] [employer] [address] [place] [phone] Manager Secondary: Leno Walker MD CO2 [Moles/Vol] 23 mmol/L Normal 20-31 [facility] Comment on above: Performed By: #### C DP, IOCAL, BMPX, MG, LATOSHA, PT #### [facility] [employer] [address] [place] [phone] Manager Secondary: Leno Walker MD Creatinine [Mass/Vol] 0.58 mg/dL Normal 0.50-0.90 [facility] Comment on above: Performed By: #### C DP, IOCAL, BMPX, MG, LATOSHA, PT #### [facility] [employer] [address] [place] [address]79 Manager Secondary: Leno Walker MD GFR/1.73 sq M.predicted among non-blacks MDRD (S/P/Bld) [Vol rate/Area] mL/min/{1.73_m2} Normal >60 [facility] Comment on above: Result Comment: Effective Jun 26, 2022 These results are not intended for use in patients <18 years of age. eGFR results are calculated without a race factor using the 2020 CKD-EPI equation. Careful clinical correlation is recommended, particularly when comparing to results calculated using previous equations. The CKD-EPI equation is less accurate in patients with extremes of muscle mass, extra-renal metabolism of creatine, excessive creatine ingestion, or following therapy that affects renal tubular secretion. Performed By: #### C DP, IOCAL, BMPX, MG, LATOSHA, PT #### [address] [address] Manager Secondary: Leno Walker MD Glucose [Mass/Vol] 111 mg/dL High 70-99 [facility] Comment on above: Performed By: #### C DP, IOCAL, BMPX, MG, LATOSHA, PT #### [facility] [employer] [address] [place] [phone] Manager Secondary: Leno Walker MD Potassium [Moles/Vol] 3.3 mmol/L Low 3.7-5.3 [facility] Comment on above: Performed By: #### C DP, IOCAL, BMPX, MG, LATOSHA, PT #### [facility] [employer] [address] [place] [address] [phone] Manager Secondary: Leno Walker MD Sodium [Moles/Vol] 137 mmol/L Normal 135-144 [facility] Comment on above: Performed By: #### C DP, IOCAL, BMPX, MG, LATOSHA, PT #### [facility] [address] [place], [place] [phone] Manager Secondary: Leno Walker MD Urea nitrogen [Mass/Vol] 13 mg/dL Normal 6-20 [facility] Comment on above: Performed By: #### C DP, IOCAL, BMPX, MG, LATOSHA, PT #### [facility] [address] [place], [place] [phone] Manager Secondary: Leno Walker MD Basic Metabolic Panel w/ Ref pam to MG 09-26-2022 Anion gap [Moles/Vol] 11 mmol/L 9 - 17 mmol/L [facility] Calcium [Mass/Vol] 8.2 mg/dL Low 8.6 - 10. 4 mg/dL [facility] Chloride [Moles/Vol] 103 mmol/L 98 - 107 mmol/L [facility]ITAL[facility] [employer] [place] [employer] CO2 [Moles/Vol] 23 mmol/L 20 - 31 mmol/L [facility] Creatinine [Mass/Vol] 0.58 mg/dL 0.50 - 0.90 mg/dL [facility] GFR/1.73 sq M.predicted MDRD (S/P/Bld) [Vol rate/Area] - PINF [facility] Comment on above: Effective Jun 26, 2022 These results are not intended for use in patients <18 years of age. eGFR results are calculated without a race factor using the 2020 CKD-EPI equation. Careful clinical correlation is recommended, particularly when comparing to results calculated using previous equations. The CKD-EPI equation is less accurate in patients with extremes of muscle mass, extra-renal metabolism of creatine, excessive creatine ingestion, or following therapy that affects renal tubular secretion. Glucose [Mass/Vol] 111 mg/dL High 70 - 99 mg/dL [facility] [employer] Potassium [Moles/Vol] 3.3 mmol/L Low 3.7 - 5.3 mmol/L [facility] Sodium [Moles/Vol] 137 mmol/L 135 - 144 mmol/L [facility] Urea nitrogen (BldV) [Mass/Vol] 13 mg/dL 6 - 20 mg/dL [facility] CBC with Auto Differentialon 09-26-2022 Absolute Eos # 0.10 [facility] Absolute Immature Granulocyte 0.23 [facility] Absolute Lymph # 1.17 [facility] Absolute Parke # 0.79 [facility] Basophils (Bld) [#/Vol] 0.06 10*3/uL [facility] Basophils/100 WBC (Bld) 0 % 0 - 2 % [facility] Eosinophils/100 WBC (Bld) 1 % 1 - 4 % [facility] Hematocrit (Bld) [Volume fraction] 32.0 % Low 36.3 - 47.1 % [facility] Hemoglobin (Bld) [Mass/Vol] 10.5 g/dL Low 11.9 - 15.1 g/dL [facility] Immature granulocytes/100 WBC (Bld) 2 % High 0 [facility] Interpretation and review of laboratory results Abnormal [facility] Lymphocytes/100 WBC (Bld) 9 % Low 24 - 43 % [facility] MCH (RBC) [Entitic mass] 29.6 pg 25.2 - 33.5 pg [facility] MCHC (RBC) [Mass/Vol] 32.8 g/dL 28.4 - 34.8 g/dL [facility] MCV (RBC) [Entitic vol] 90.1 fL 82.6 - 102.9 fL [facility] Monocytes/100 WBC (Bld) 6 % 3 - 12 % [facility] NRBC Automated 0.0 0.0 per 100 WBC [facility] Platelet distribution width (Bld) [Ratio] 12.5 % 11.8 - 14.4 % [facility] Platelet mean volume (Bld) [Entitic vol] 9.9 fL 8.1 - 13.5 fL [facility] Platelets (Bld) [#/Vol] 263 10*3/uL [facility] RBC (Bld) [#/Vol] 3.55 10*6/uL Low 3.95 - 5.1 1 m/uL [facility] Segmented neutrophils/100 WBC (Bld) 83 % High 36 - 65 % [facility] Segs Absolute 11.23 High [facility] WBC (Bld) [#/Vol] 13.6 10*3/uL High [facility] CBC with Diffon 09-26-2022 Abs. Basophil 0.06 k/uL Normal 0.00-0.20 [facility] Comment on above: Performed By: #### C DP, IOCAL, BMPX, MG, LATOSHA, PT #### [facility] [employer] [address] [place] [address] Manager Secondary: Leno Walker MD Abs.Imm.Granulocyte 0.23 k/uL Normal 0.00-0.30 [facility] Comment on above: Performed By: #### C DP, IOCAL, BMPX, MG, LATOSHA, PT #### [facility] [employer] [address] [place] [address] Manager Secondary: Leno Walker MD Abs.Neutrophil (Seg) 11.23 k/uL High 1.50-8.10 [facility] Comment on above: Performed By: #### C DP, IOCAL, BMPX, MG, LATOSHA, PT #### [facility] [address] [place] [address] Manager Secondary: Leno Walker MD Basophils/100 WBC (Bld) 0 % Normal 0-2 [facility] Comment on above: Performed By: #### C DP, IOCAL, BMPX, MG, LATOSHA, PT #### [facility] [employer] [address] [place] [address] Manager Secondary: Leno Walker MD Eosinophils (Bld) [#/Vol] 0.10 10*3/uL Normal 0.00-0.44 [facility] Comment on above: Performed By: #### C DP, IOCAL, BMPX, MG, LATOSHA, PT #### [facility] [address] [place] [phone] Manager Secondary: Leno Walker MD Eosinophils/100 WBC (Bld) 1 % Normal 1-4 [facility] Comment on above: Performed By: #### C DP, IOCAL, BMPX, MG, LATOSHA, PT #### [facility] [address] [place] [address] Manager Secondary: Leno Walker MD Erythrocyte distribution width (RBC) [Ratio] 12.5 % Normal 11.8-14.4 [facility] Comment on above: Performed By: #### C DP, IOCAL, BMPX, MG, LATOSHA, PT #### [facility] [employer] [address] [place] [address] Manager Secondary: Leno Walker MD Hematocrit (Bld) [Volume fraction] 32.0 % Low 36.3-47.1 [facility] Comment on above: Performed By: #### C DP, IOCAL, BMPX, MG, LATOSHA, PT #### [facility] [employer] [address] [place] [address] Manager Secondary: Leno Walker MD Hemoglobin (Bld) [Mass/Vol] 10.5 g/dL Low 11.9-15.1 [facility] Comment on above: Performed By: #### C DP, IOCAL, BMPX, MG, LATOSHA, PT #### [facility] [address] [place] [address] Manager Secondary: Leno Walker MD Immature granulocytes/100 WBC (Bld) 2 % High 0 [facility] Comment on above: Performed By: #### C DP, IOCAL, BMPX, MG, LATOSHA, PT #### [facility] [employer] [address] [place] [phone] Manager Secondary: Leno Walker MD Lymphocytes (Bld) [#/Vol] 1.17 10*3/uL Normal 1.10-3.70 [facility] Comment on above: Performed By: #### C DP, IOCAL, BMPX, MG, LATOSHA, PT #### [address] [address] Manager Secondary: Leno Walker MD Lymphocytes/100 WBC (Bld) 9 % Low 24-43 [facility] Comment on above: Performed By: #### C DP, IOCAL, BMPX, MG, LATOSAH, PT #### [address] [address] Manager Secondary: Leno Walker MD MCH (RBC) [Entitic mass] 29.6 pg Normal 25.2-33.5 [facility] Comment on above: Performed By: #### C DP, IOCAL, BMPX, MG, LATOSHA, PT #### [address] [address] Manager Secondary: Leno Walker MD MCHC (RBC) [Mass/Vol] 32.8 g/dL Normal 28.4-34.8 [facility] Comment on above: Performed By: #### C DP, IOCAL, BMPX, MG, LATOSHA, PT #### [address] [address] Manager Secondary: Leno Walker MD MCV (RBC) [Entitic vol] 90.1 fL Normal 82.6-102.9 [facility] Comment on above: Performed By: #### C DP, IOCAL, BMPX, MG, LATOSHA, PT #### [address] [address] Manager Secondary: Leno Walker MD Monocytes (Bld) [#/Vol] 0.79 10*3/uL Normal 0.10-1.20 [facility] Comment on above: Performed By: #### C DP, IOCAL, BMPX, MG, LATOSHA, PT #### [address] [address] Manager Secondary: Leno Walker MD Monocytes/100 WBC (Bld) 6 % Normal 3-12 [facility] Comment on above: Performed By: #### C DP, IOCAL, BMPX, MG, LATOSHA, PT #### [address] [address] Manager Secondary: Leno Walker MD Neutrophil (Seg) 83 % High 36-65 [facility] Comment on above: Performed By: #### C DP, IOCAL, BMPX, MG, LATOSHA, PT #### [address] [address] Manager Secondary: Leno Walker MD NRBC Automated 0.0 per 100 WBC Normal 0.0 [facility] Comment on above: Performed By: #### C DP, IOCAL, BMPX, MG, LATOSHA, PT #### [address] [address] Manager Secondary: Leno Walker MD Platelet mean volume (Bld) [Entitic vol] 9.9 fL Normal 8.1-13.5 [facility] Comment on above: Performed By: #### C DP, IOCAL, BMPX, MG, LATOSHA, PT #### [address] [address] Manager Secondary: Leno Walker MD Platelets (Bld) [#/Vol] 263 10*3/uL Normal 138-453 [facility] Comment on above: Performed By: #### C DP, IOCAL, BMPX, MG, LATOSHA, PT #### [address] [address] Manager Secondary: Leno Walker MD RBC (Bld) [#/Vol] 3.55 10*6/uL Low 3.95-5.11 [facility] Comment on above: Performed By: #### C DP, IOCAL, BMPX, MG, LATOSHA, PT #### [facility] [employer] [address] [place] [phone] Manager Secondary: Leno Walker MD WBC (Bld) [#/Vol] 13.6 10*3/uL High 3.5-11.3 [facility] Comment on above: Performed By: #### C DP, IOCAL, BMPX, MG, LATOSHA, PT #### [facility] [employer] [address] [place] [address] [phone] Manager Secondary: Leno Walker MD Calcium, Ionicon 09-26-2022 Calcium [Moles/Vol] 1.17 mmol/L Normal 1.13-1.33 [facility] Comment on above: Performed By: #### C DP, IOCAL, BMPX, MG, LATOSHA, PT #### [facility] [employer] [address] [place] [address] [phone] Manager Secondary: Leno Walker MD Calcium, Ionizedon Calcium, Ionized 1.17 mmol/L 1.13 - 1.33 mmol/L [facility] Magnesiumon 09-26-2022 Magnesium [Mass/Vol] 2.3 mg/dL Normal 1.6-2.6 [facility] Comment on above: Performed By: #### C DP, IOCAL, BMPX, MG, LATOSHA, PT #### [facility] [employer] [address] [place] [address] [phone] Manager Secondary: Leno Walker MD Magnesium [Mass/Vol] 2.3 mg/dL 1.6 - 2.6 mg/dL [facility] No Panel Informationon 09-26 Interpretation and review of laboratory results Abnormal [facility] PTon 09-26-2022 INR Coag (PPP) [Relative time] 1.1 {INR} Normal [facility] Comment on above: Result Comment: Therapeutic Range: Moderate Anticoagulant Intensity: INR = 2.0-3.0 High Anticoagulant Intensity: INR = 2.5-3.5 Performed By: #### C DP, IOCAL, BMPX, MG, LATOSHA, PT #### [employer] [address] [place] [address] [phone] Manager Secondary: Leno Walker MD PT Coag (PPP) [Time] 11.6 s Normal 9.1-12.3 [facility] Comment on above: Performed By: #### C DP, IOCAL, BMPX, MG, LATOSHA, PT #### [employer] [address] [place] [address] [phone] Manager Secondary: Leno Walker MD Phosphoruson 09-26-2022 Phosphate [Mass/Vol] 2.1 mg/dL Low 2.6 - 4.5 mg/dL [facility] [employer] Phosphorus, Inorg.on 023 Phosphorus, Inorg. 2.1 mg/dL Low 2.6-4.5 [facility] Comment on above: Performed By: #### C DP, IOCAL, BMPX, MG, LATOSHA, PT #### [employer] [address] [place] [phone] Manager Secondary: Leno Walker MD Protime-INRon 09-26-2022 INR Coag (Bld) [Relative time] 1.1 {INR} [facility] [employer] Comment on above: Therapeutic Range: Moderate Anticoagulant Intensity: INR = 2.0-3.0 High Anticoagulant Intensity: INR = 2.5-3.5 PT Coag (PPP) [Time] 11.6 s [facility] [employer] [facility] [employer] Basic Metab w/rfx MGon 09-25 Anion gap [Moles/Vol] 6 mmol/L Low 9-17 [facility] Comment on above: Performed By: #### C DP, IOCAL, BMPX, MG, LATOSHA, PT #### [employer] [address] [place] [phone] Manager Secondary: Leno Walker MD Calcium [Mass/Vol] 7.5 mg/dL Low 8.6-10.4 [facility] Comment on above: Performed By: #### C DP, IOCAL, BMPX, MG, LATOSHA, PT #### [facility] [employer] [address] [place] [phone] Manager Secondary: Leno Walker MD Chloride [Moles/Vol] 97 mmol/L Low 98-107 [facility] Comment on above: Performed By: #### C DP, IOCAL, BMPX, MG, LATOSHA, PT #### [facility] [employer] [address] [place] [phone] Manager Secondary: Leno Walker MD CO2 [Moles/Vol] 23 mmol/L Normal 20-31 [facility] Comment on above: Performed By: #### C DP, IOCAL, BMPX, MG, LATOSHA, PT #### [facility] [employer] [address] [place] [phone] Manager Secondary: Leno Walker MD Creatinine [Mass/Vol] 0.65 mg/dL Normal 0.50-0.90 [facility] Comment on above: Performed By: #### C DP, IOCAL, BMPX, MG, LATOSHA, PT #### [address] [address] Manager Secondary: Leno Walker MD GFR/1.73 sq M.predicted among non-blacks MDRD (S/P/Bld) [Vol rate/Area] mL/min/{1.73_m2} Normal >60 [facility] Comment on above: Result Comment: Effective Jun 26, 2022 These results are not intended for use in patients <18 years of age. eGFR results are calculated without a race factor using the 2020 CKD-EPI equation. Careful clinical correlation is recommended, particularly when comparing to results calculated using previous equations. The CKD-EPI equation is less accurate in patients with extremes of muscle mass, extra-renal metabolism of creatine, excessive creatine ingestion, or following therapy that affects renal tubular secretion. Performed By: #### C DP, IOCAL, BMPX, MG, LATOSHA, PT #### [facility] [address] [place] [address] [phone] Manager Secondary: Leno Walker MD Glucose [Mass/Vol] 100 mg/dL High 70-99 [facility] Comment on above: Performed By: #### C DP, IOCAL, BMPX, MG, LATOSHA, PT #### [facility] [address] [place] [address] [phone] Manager Secondary: Leno Walker MD Potassium [Moles/Vol] 3.6 mmol/L Low 3.7-5.3 [facility] Comment on above: Performed By: #### C DP, IOCAL, BMPX, MG, LATOSHA, PT #### [facility] [employer] [address] [place] [phone] Manager Secondary: Leno Walker MD Sodium [Moles/Vol] 126 mmol/L Low 135-144 [facility] Comment on above: Performed By: #### C DP, IOCAL, BMPX, MG, LATOSHA, PT #### [facility] [employer] [address] [place] [phone] Manager Secondary: Leno Walker MD Urea nitrogen [Mass/Vol] 17 mg/dL Normal 6-20 [facility] Comment on above: Performed By: #### C DP, IOCAL, BMPX, MG, LATOSHA, PT #### [facility] [address] [place] [phone] Manager Secondary: Leno Walker MD Basic Metabolic Panel w/ Ref pam to MGon 09-25-2022 Anion gap [Moles/Vol] 6 mmol/L Low 9 - 17 mmol/L [facility] Calcium [Mass/Vol] 7.5 mg/dL Low 8.6 - 10. 4 mg/dL [facility] Chloride [Moles/Vol] 97 mmol/L Low 98 - 107 mmol/L [facility] CO2 [Moles/Vol] 23 mmol/L 20 - 31 mmol/L [facility] Creatinine [Mass/Vol] 0.65 mg/dL 0.50 - 0.90 mg/dL [facility] GFR/1.73 sq M.predicted MDRD (S/P/Bld) [Vol rate/Area] - PINF [facility] Comment on above: Effective Jun 26, 2022 These results are not intended for use in patients <18 years of age. eGFR results are calculated without a race factor using the 2020 CKD-EPI equation. Careful clinical correlation is recommended, particularly when comparing to results calculated using previous equations. The CKD-EPI equation is less accurate in patients with extremes of muscle mass, extra-renal metabolism of creatine, excessive creatine ingestion, or following therapy that affects renal tubular secretion. Glucose [Mass/Vol] 100 mg/dL High 70 - 99 mg/dL [facility] Interpretation and review of laboratory results Abnormal [facility] Potassium [Moles/Vol] 3.6 mmol/L Low 3.7 - 5.3 mmol/L [facility] Sodium [Moles/Vol] 126 mmol/L Low 135 - 144 mmol/L [facility] Urea nitrogen (BldV) [Mass/Vol] 17 mg/dL 6 - 20 mg/dL [facility] CBC with Diffon 09-25-2022 Abs. Basophil 0.06 k/uL Normal 0.00-0.20 [facility] Comment on above: Performed By: #### U RC #### [employer] [address] [place] [address] Manager Secondary: Leno Walker MD Abs. Eosinophil <0.03 Normal 0.00-0.44 [facility] Comment on above: Performed By: #### U RC #### [facility] [address] [place] [address] Manager Secondary: Leno Walker MD Abs.Imm.Granulocyte 0.25 k/uL Normal 0.00-0.30 [facility] Comment on above: Performed By: #### U RC #### [employer] [address] [place] [address] Manager Secondary: Leno Walker MD Abs.Neutrophil (Seg) 17.63 k/uL High 1.50-8.10 [facility] Comment on above: Performed By: #### U RC #### [address] [address] Manager Secondary: Leno Walker MD Basophils/100 WBC (Bld) 0 % Normal 0-2 [facility] Comment on above: Performed By: #### U RC #### [address] [address] Manager Secondary: Lneo Walker MD Eosinophils/100 WBC (Bld) 0 % Low 1-4 [facility] Comment on above: Performed By: #### U RC #### [address] [address] Manager Secondary: Leno Walker MD Erythrocyte distribution width (RBC) [Ratio] 12.5 % Normal 11.8-14.4 [facility] Comment on above: Performed By: #### U RC #### [address] [address] Manager Secondary: Leno Walker MD Hematocrit (Bld) [Volume fraction] 36.0 % Low 36.3-47.1 [facility] Comment on above: Performed By: #### U RC #### [address] [address] Manager Secondary: Leno Walker MD Hemoglobin (Bld) [Mass/Vol] 11.8 g/dL Low 11.9-15.1 [facility] Comment on above: Performed By: #### U RC #### [address] [address] Manager Secondary: Leno Walker MD Immature granulocytes/100 WBC (Bld) 1 % High 0 [facility] Comment on above: Performed By: #### U RC #### [address] [address] Manager Secondary: Leno Walker MD Lymphocytes (Bld) [#/Vol] 1.49 10*3/uL Normal 1.10-3.70 [facility] Comment on above: Performed By: #### U RC #### [address] [address] Manager Secondary: Leno Walker MD Lymphocytes/100 WBC (Bld) 7 % Low 24-43 [facility] Comment on above: Performed By: #### U RC #### [address] [address] Manager Secondary: Leno Walker MD MCH (RBC) [Entitic mass] 29.3 pg Normal 25.2-33.5 [facility] Comment on above: Performed By: #### U RC #### [address] [address] Manager Secondary: Leno Walker MD MCHC (RBC) [Mass/Vol] 32.8 g/dL Normal 28.4-34.8 [facility] Comment on above: Performed By: #### U RC #### [address] [address] Manager Secondary: Leno Walker MD MCV (RBC) [Entitic vol] 89.3 fL Normal 82.6-102.9 [facility] Comment on above: Performed By: #### U RC #### [address] [address] Manager Secondary: Leno Walker MD Monocytes (Bld) [#/Vol] 1.38 10*3/uL High 0.10-1.20 [facility] Comment on above: Performed By: #### U RC #### [address] [address] Manager Secondary: Leno Walker MD Monocytes/100 WBC (Bld) 7 % Normal 3-12 [facility] Comment on above: Performed By: #### U RC #### [address] [address] Manager Secondary: Leno Walker MD Neutrophil (Seg) 85 % High 36-65 [facility] Comment on above: Performed By: #### U RC #### [address] [address] Manager Secondary: Leno Walker MD NRBC Automated 0.0 per 100 WBC Normal 0.0 [facility] Comment on above: Performed By: #### U RC #### [address] [address] Manager Secondary: Leno Walker MD Platelet mean volume (Bld) [Entitic vol] 9.7 fL Normal 8.1-13.5 [facility] Comment on above: Performed By: #### U RC #### [address] [address] Manager Secondary: Leno Walker MD Platelets (Bld) [#/Vol] 249 10*3/uL Normal 138-453 [facility] Comment on above: Performed By: #### U RC #### [address] [address] Manager Secondary: Leno Walker MD RBC (Bld) [#/Vol] 4.03 10*6/uL Normal 3.95-5.11 [facility] Comment on above: Performed By: #### U RC #### [address] [address] Manager Secondary: Leno Walker MD WBC (Bld) [#/Vol] 20.8 10*3/uL High 3.5-11.3 [facility] Comment on above: Performed By: #### U #### [employer] [facility] [place] [phone] Manager Secondary: Leno Walker MD CT ABDOMEN PELVIS W IV CONTR [place] 09-25-2022 CT ABDOMEN PELVIS W IV CONTRAST EXAMINATION: CT OF THE ABDOMEN AND PELVIS WITH CONTRAST 09/25/2022 4:59 am TECHNIQUE: CT of the abdomen and pelvis was performed with the administration of intravenous contrast. Multiplanar reformatted images are provided for review. Automated exposure control, iterative reconstruction, and/or weight based adjustment of the mA/kV was utilized to reduce the radiation dose to as low as reasonably achievable. COMPARISON: 09/24/2022 CT HISTORY: ORDERING SYSTEM PROVIDED HISTORY: Perforated appendicitis TECHNOLOGIST PROVIDED HISTORY: Perforated appendicitis Reason for Exam: Perforated appendicitis FINDINGS: Lower Chest: Dense peripheral airspace opacification in the lung bases. Base of the heart normal. Organs: The liver, gallbladder, biliary ducts, pancreas and spleen are normal. Kidneys and adrenal glands are normal. GI/Bowel: Stomach, duodenum and proximal small bowel normal. Severe mucosal thickening of the terminal ileum extending to the ileocecal valve. There is also severe mucosal thickening at the cecum. Dilated appendix measuring up to 17 mm in diameter. There is severe mucosal thickening. Increased density within the lumen may represent appendicolith or hemorrhage. Provided history of perforation from prior outside imaging. There is ill-defined free fluid surrounding the appendix with at least 1 tiny focus of intraperitoneal free air. Distally, the colon is normal. Pelvis: The bladder is unremarkable. IUD in the endometrium of the uterus. 7.8 x 7.0 cm left adnexal mass containing fat, soft tissue and calcium density representing a dermoid. Peritoneum/Retroperit oneum: The aorta tapers normally. Regional adenopathy in the right lower quadrant. Bones/Soft Tissues: No significant skeletal abnormalities. IMPRESSION: 1. Acute appendicitis with perforation, likely near the base of the appendix. Underlying appendicolith versus hemorrhage in the lumen. 2. There is a severe pattern of surrounding inflammatory change that has progressed since the prior CT with a tiny focus of free air. No focal abscess. 3. Severe progressive inflammation of the terminal ileum and cecum that is likely reactive. The possibility of underlying cecal mass is considered less likely. 4. Incidental dermoid in the left adnexa. When acute symptoms resolve, gynecologic follow-up is recommended. Interpreted by: Garth Hodge IV, MD Signed by: Garth Hodge IV, MD 09/25/22 Final result Normal [facility] CT ABDOMEN PELVIS W IV CONTR AST Additional Contrast? Oralon 09-25-2022 1. Acute appendiciti s with perforation, likely near the base of the appendix. Underlying appendicolith versus hemorrhage in the lumen. 2. There is a severe pattern of surrounding inflammatory change that has progressed since the prior CT with a tiny focus of free air. No focal abscess. 3. Severe progressive inflammation of the terminal ileum and cecum that is likely reactive. The possibility of underlying cecal mass is considered less likely. 4. Incidental dermoid in the left adnexa. When acute symptoms resolve, gynecologic follow-up is recommended. [facility] EXAMINATION: CT OF THE ABDOMEN AND PELVIS WITH CONTRAST 09/25/2022 4:59 am TECHNIQUE: CT of the abdomen and pelvis was performed with the administration of intravenous contrast. Multiplanar reformatted images are provided for review. Automated exposure control, iterative reconstruction, and/or weight based adjustment of the mA/kV was utilized to reduce the radiation dose to as low as reasonably achievable. COMPARISON: 09/24/2022 CT HISTORY: ORDERING SYSTEM PROVIDED HISTORY: Perforated appendicitis TECHNOLOGIST PROVIDED HISTORY: Perforated appendicitis Reason for Exam: Perforated appendicitis FINDINGS: Lower Chest: Dense peripheral airspace opacification in the lung bases. Base of the heart normal. Organs: The liver, gallbladder, biliary ducts, pancreas and spleen are normal. Kidneys and adrenal glands are normal. GI/Bowel: Stomach, duodenum and proximal small bowel normal. Severe mucosal thickening of the terminal ileum extending to the ileocecal valve. There is also severe mucosal thickening at the cecum. Dilated appendix measuring up to 17 mm in diameter. There is severe mucosal thickening. Increased density within the lumen may represent appendicolith or hemorrhage. Provided history of perforation from prior outside imaging. There is ill-defined free fluid surrounding the appendix with at least 1 tiny focus of intraperitoneal free air. Distally, the colon is normal. Pelvis: The bladder is unremarkable. IUD in the endometrium of the uterus. 7.8 x 7.0 cm left adnexal mass containing fat, soft tissue and calcium density representing a dermoid. Peritoneum/Retroperit oneum: The aorta tapers normally. Regional adenopathy in the right lower quadrant. Bones/Soft Tissues: No significant skeletal abnormalities. [facility] Garth Hodge IV, MD - 09/25/2022 EXAMINATION: CT OF THE ABDOMEN AND PELVIS WITH CONTRAST 09/25/2022 4:59 am TECHNIQUE: CT of the abdomen and pelvis was performed with the administration of intravenous contrast. Multiplanar reformatted images are provided for review. Automated exposure control, iterative reconstruction, and/or weight based adjustment of the mA/kV was utilized to reduce the radiation dose to as low as reasonably achievable. COMPARISON: 09/24/2022 CT HISTORY: ORDERING SYSTEM PROVIDED HISTORY: Perforated appendicitis TECHNOLOGIST PROVIDED HISTORY: Perforated appendicitis Reason for Exam: Perforated appendicitis FINDINGS: Lower Chest: Dense peripheral airspace opacification in the lung bases. Base of the heart normal. Organs: The liver, gallbladder, biliary ducts, pancreas and spleen are normal. Kidneys and adrenal glands are normal. GI/Bowel: Stomach, duodenum and proximal small bowel normal. Severe mucosal thickening of the terminal ileum extending to the ileocecal valve. There is also severe mucosal thickening at the cecum. Dilated appendix measuring up to 17 mm in diameter. There is severe mucosal thickening. Increased density within the lumen may represent appendicolith or hemorrhage. Provided history of perforation from prior outside imaging. There is ill-defined free fluid surrounding the appendix with at least 1 tiny focus of intraperitoneal free air. Distally, the colon is normal. Pelvis: The bladder is unremarkable. IUD in the endometrium of the uterus. 7.8 x 7.0 cm left adnexal mass containing fat, soft tissue and calcium density representing a dermoid. Peritoneum/Retroperit oneum: The aorta tapers normally. Regional adenopathy in the right lower quadrant. Bones/Soft Tissues: No significant skeletal abnormalities. IMPRESSION: 1. Acute appendicitis with perforation, likely near the base of the appendix. Underlying appendicolith versus hemorrhage in the lumen. 2. There is a severe pattern of surrounding inflammatory change that has progressed since the prior CT with a tiny focus of free air. No focal abscess. 3. Severe progressive inflammation of the terminal ileum and cecum that is likely reactive. The possibility of underlying cecal mass is considered less likely. 4. Incidental dermoid in the left adnexa. When acute symptoms resolve, gynecologic follow-up is recommended. [employer] Phone: Radiology Study observation (narrative) [facility] [employer] Work Phone: CT ABDOMEN PELVIS W IV CONTR AST Additional Contrast? OralOrdered By: Garth Hodge on 09-25-2022 [facility] [employer] Work Phone: Comp Metabolic Profon 2022 Albumin [Mass/Vol] 3.2 g/dL Low 3.5-5.2 [facility] Comment on above: Performed By: #### C DP, IOCAL, BMPX, MG, LATOSHA, PT #### [facility] [employer] [address] [place] [phone] Manager Secondary: Leno Walker MD Albumin/Glob Ratio 0.9 Low 1.0-2.5 [facility] Comment on above: Performed By: #### C DP, IOCAL, BMPX, MG, LATOSHA, PT #### [facility] [employer] [address] [place] [id number] Manager Secondary: Leno Walker MD Alkaline Phos 117 U/L High 35-104 [facility] Comment on above: Performed By: #### C DP, IOCAL, BMPX, MG, LATOSHA, PT #### [employer] [address] [place] [phone] Manager Secondary: Leno Walker MD ALT [Catalytic activity/Vol] 20 U/L Normal 5-33 [facility] Comment on above: Performed By: #### C DP, IOCAL, BMPX, MG, LATOSHA, PT #### [employer] [address] [place] [phone] Manager Secondary: Leno Walker MD Anion gap [Moles/Vol] 9 mmol/L Normal 9-17 [facility] Comment on above: Performed By: #### C DP, IOCAL, BMPX, MG, LATOSHA, PT #### [employer] [address] [place] [phone] Manager Secondary: Leno Walker MD AST [Catalytic activity/Vol] 18 U/L Normal <32 [facility] Comment on above: Performed By: #### C DP, IOCAL, BMPX, MG, LATOSHA, PT #### [address] [address] Manager Secondary: Leno Walker MD Bilirubin [Mass/Vol] 1.9 mg/dL High 0.3-1.2 [facility] Comment on above: Performed By: #### C DP, IOCAL, BMPX, MG, LATOSHA, PT #### [address] [id number] Manager Secondary: Leno Walker MD Calcium [Mass/Vol] 8.4 mg/dL Low 8.6-10.4 [facility] Comment on above: Performed By: #### C DP, IOCAL, BMPX, MG, LATOSHA, PT #### [address] [address] Manager Secondary: Leno Walker MD Chloride [Moles/Vol] 95 mmol/L Low 98-107 [facility] Comment on above: Performed By: #### C DP, IOCAL, BMPX, MG, LATOSHA, PT #### [address] [address] Manager Secondary: Leno Walker MD CO2 [Moles/Vol] 24 mmol/L Normal 20-31 [facility] Comment on above: Performed By: #### C DP, IOCAL, BMPX, MG, LATOSHA, PT #### [address] [address] Manager Secondary: Leno Walker MD Creatinine [Mass/Vol] 0.73 mg/dL Normal 0.50-0.90 [facility] Comment on above: Performed By: #### C DP, IOCAL, BMPX, MG, LATOSHA, PT #### [address] [phone] Manager Secondary: Leno Walker MD GFR/1.73 sq M.predicted among non-blacks MDRD (S/P/Bld) [Vol rate/Area] mL/min/{1.73_m2} Normal >60 [facility] Comment on above: Result Comment: Effective Jun 26, 2022 These results are not intended for use in patients <18 years of age. eGFR results are calculated without a race factor using the 2020 CKD-EPI equation. Careful clinical correlation is recommended, particularly when comparing to results calculated using previous equations. The CKD-EPI equation is less accurate in patients with extremes of muscle mass, extra-renal metabolism of creatine, excessive creatine ingestion, or following therapy that affects renal tubular secretion. Performed By: #### C DP, IOCAL, BMPX, MG, LATOSHA, PT #### [address] [phone] Manager Secondary: Leno Walker MD Glucose [Mass/Vol] 96 mg/dL Normal 70-99 [facility] Comment on above: Performed By: #### C DP, IOCAL, BMPX, MG, LATOSHA, PT #### [address] [address] Manager Secondary: Leno Walker MD Potassium [Moles/Vol] 3.7 mmol/L Normal 3.7-5.3 [facility] Comment on above: Performed By: #### C DP, IOCAL, BMPX, MG, LATOSHA, PT #### [address] [id number] Manager Secondary: Leno Walker MD Protein [Mass/Vol] 6.6 g/dL Normal 6.4-8.3 [facility] Comment on above: Performed By: #### C DP, IOCAL, BMPX, MG, LATOSHA, PT #### [address] [phone] Manager Secondary: Leno Walker MD Sodium [Moles/Vol] 128 mmol/L Low 135-144 [facility] Comment on above: Performed By: #### C DP, IOCAL, BMPX, MG, LATOSHA, PT #### [employer] [address] [place], [place] [phone] Manager Secondary: eLno Walker MD Urea nitrogen [Mass/Vol] 21 mg/dL High 6-20 [facility] Comment on above: Performed By: #### C DP, IOCAL, BMPX, MG, LATOSHA, PT #### [employer] [address] [place], [place] [phone] Manager Secondary: Leno Walker MD HCG Qualitative, Serumon hCG Qual Negative NEGATIVE [facility] Comment on above: Specimens with hCG l evels near the threshold of the test (25 mIU/mL) may give a negative or indeterminate result. In such cases, another test should be performed with a new specimen in 48-72 hours. If early is suspected clinically in this setting, correlation with quantitative serum b-hCG level is suggested. [employer] has confirmed the use of plasma for this test. This has not been cleared or approved by the U.S. Food and Drug Administration. The FDA has determined that such clearance is not necessary. [facility] HCG Screen, Bloodon 09-25-19 HCG Screen, Blood Negative Normal NEG [facility] Comment on above: Result Comment: Spec imens with hCG levels near the threshold of the test (25 mIU/mL) may give a negative or indeterminate result. In such cases, another test should be performed with a new specimen in 48-72 hours. If early is suspected clinically in this setting, correlation with quantitative serum b-hCG level is suggested. [employer] has confirmed the use of plasma for this test. This has not been cleared or approved by the U.S. Food and Drug Administration. The FDA has determined that such clearance is not necessary. Performed By: #### C DP, IOCAL, BMPX, MG, LATOSHA, PT #### [employer] [address] [place], [place] [phone] Manager Secondary: Leno Walker MD Lactic Acidon 09-25-2022 Lactic Acid,Whole Bl 1.1 mmol/L Normal 0.7-2.1 [facility] Comment on above: Performed By: #### U RC #### [facility] [employer] [address] [place] [address] [phone] Manager Secondary: Leno Walker MD Lipaseon 09-25-2022 Lipase [Catalytic activity/Vol] 10 U/L Low 13-60 [facility] Comment on above: Performed By: #### C DP, IOCAL, BMPX, MG, LATOSHA, PT #### [address] [phone] Manager Secondary: Leno Walker MD PTon 09-25-2022 INR Coag (PPP) [Relative time] 1.2 {INR} Normal [facility] Comment on above: Result Comment: Therapeutic Range: Moderate Anticoagulant Intensity: INR = 2.0-3.0 High Anticoagulant Intensity: INR = 2.5-3.5 Performed By: #### C DP, IOCAL, BMPX, MG, LATOSHA, PT #### [address] [phone] Manager Secondary: Leno Walker MD PT Coag (PPP) [Time] 12.3 s Normal 9.1-12.3 [facility] Comment on above: Performed By: #### C DP, IOCAL, BMPX, MG, LATOSHA, PT #### [facility] [employer] [address] [place] [address] [phone] Manager Secondary: Leno Walker MD TYPE AND SCREENon 09-25-2022 ABO/Rh Positive [facility] Arm Band Number BE [id number] [facility] Expiration Date 09/28/2022,2353 [facility] Type + Screenon 09-25-2022 Type + Screen Sample Expiration 09/28/2022,2351 Arm Band Number BE [id number] ABO/Rh(D) O POSITIVE Antibody Screen NEGATIVE Normal [facility] Comment on above: Performed By: #### U RC #### [id number] [place] [address] Manager Secondary: Leno Walker MD AMYLASEon 09-24-2022 Amylase [Catalytic activity/Vol] 18 U/L Critically low 25-115 [facility] Comment on above: Performed By: #### A MY, CMP, LIPA #### [facility] [address] [address] [address] Steve Olsen CBC AUTO DIFFon 09-24-2022 BASO # 0.1 103/ul Normal 0.0-0.1 [facility] Comment on above: Performed By: #### C BC #### [facility] [address] [place] [address] Dr. Steve Olsen Basophils/100 WBC (Bld) 0.3 % Normal 0.2-2.0 [facility] Comment on above: Performed By: #### C BC #### [facility] [address] [place] [address] Dr. Steve Olsen EO # 0.5 103/ul Normal 0.0-0.7 [facility] Comment on above: Performed By: #### C BC #### [facility] [address] [place] [address] Dr. Steve Olsen Eosinophils/100 WBC (Bld) 2.2 % Normal 0.9-7.0 [facility] Comment on above: Performed By: #### C BC #### [facility] [address] [place] [address] Dr. Steve Olsen Erythrocyte distribution width (RBC) [Ratio] 12.4 % Normal 11.0-15.0 [facility] Comment on above: Performed By: #### C BC #### [facility] [address] [place] [address] Dr. Steve Olsen Hematocrit (Bld) [Volume fraction] 37.6 % Normal 36.0-48.0 [facility] Comment on above: Performed By: #### C BC #### [facility] [address] [place] [address] Dr. Steve Olsen Hemoglobin (Bld) [Mass/Vol] 12.8 g/dL Normal 12.0-16.0 [facility] Comment on above: Performed By: #### C BC #### [facility] [address] [place] [address] Dr. Steve Olsen IG # 0.30 10e3/ul Critically high 0.00-0.03 [facility] Comment on above: Performed By: #### C BC #### [facility] [address] [place] [address] Dr. Steve Olsen IG % 1.4 % Critically high 0.0-0.5 [facility] Comment on above: Performed By: #### C BC #### [facility] [address] [place] [address] Dr. Steve Olsen LYMPH # 1.6 103/ul Normal 1.2-3.8 [facility] Comment on above: Performed By: #### C BC #### [facility] [address] [place] [address] Dr. Steve Olsen Lymphocytes/100 WBC (Bld) 7.2 % Critically low 20.5-60.0 [facility] Comment on above: Performed By: #### C BC #### [facility] [address] [place] [address] Dr. Steve Olsen MANUAL DIFF REQ NO Normal [facility] Comment on above: Performed By: #### C BC #### [facility] [address] [place] [address] Dr. Steve Olsen MCH (RBC) [Entitic mass] 29.3 pg Normal 26.7-34.0 [facility] Comment on above: Performed By: #### C BC #### [facility] [address] [place] [address] Dr. Steve Olsen MCHC (RBC) [Mass/Vol] 34.0 g/dL Normal 29.9-35.2 [facility] Comment on above: Performed By: #### C BC #### [facility] [address] [place] [address] Dr. Steve Olsen MCV (RBC) [Entitic vol] 86.0 fL Normal 81.0-99.0 [facility] Comment on above: Performed By: #### C BC #### [facility] [address] [address] [address] Steve Olsen MONO # 1.7 103/ul Critically high 0.3-0.8 [facility] Comment on above: Performed By: #### C BC #### [facility] [address] [address] [address] Steve Olsen Monocytes/100 WBC (Bld) 7.7 % Normal 1.7-12.0 [facility] Comment on above: Performed By: #### C BC #### [facility] [address] [place] [address] Dr. Steve Olsen NEUT # 17.9 103/ul Critically high 1.4-6.5 [facility] Comment on above: Performed By: #### C BC #### [facility] [address] [place] [address] Dr. Steve Olsen Neutrophils/100 WBC (Bld) 81.2 % Critically high 43.0-75.0 [facility] Comment on above: Performed By: #### C BC #### [facility] [address] [place] [address] Dr. Steve Olsen Platelet mean volume (Bld) [Entitic vol] 9.6 fL Normal 9.5-13.5 [facility] Comment on above: Performed By: #### C BC #### [facility] [address] [place] [address] Dr. Steve Olsen PLT 263 103/ul Normal 150-450 [facility] Comment on above: Performed By: #### C BC #### [facility] [address] [place] [address] Dr. Steve Olsen RBC 4.37 106/ul Normal 4.20-5.40 [facility] Comment on above: Performed By: #### C BC #### [facility] [address] [place] [address] Dr. Steve Olsen WBC 22.0 103/ul Critically high 4.0-11.0 [facility] Comment on above: Performed By: #### C BC #### [facility] [address] [place], [place] [address] Dr. Steve Olsen CBC with Auto Differentialon 09-24-2022 Absolute Eos # [facility] Absolute Immature Granulocyte 0.25 [facility] Absolute Lymph # 1.49 [facility] Absolute Parke # 1.[address] [facility] [facility] [facility] Basophils (Bld) [#/Vol] 0.06 10*3/uL [facility] Basophils/100 WBC (Bld) 0 % 0 - 2 % [facility] Eosinophils/100 WBC (Bld) 0 % Low 1 - 4 % [facility] Hematocrit (Bld) [Volume fraction] 36.0 % Low 36.3 - 47.1 % [facility] Hemoglobin (Bld) [Mass/Vol] 11.8 g/dL Low 11.9 - 15.1 g/dL [facility] Immature granulocytes/100 WBC (Bld) 1 % High 0 [facility] Interpretation and review of laboratory results Abnormal [facility] Lymphocytes/100 WBC (Bld) 7 % Low 24 - 43 % [facility] MCH (RBC) [Entitic mass] 29.3 pg 25.2 - 33.5 pg [facility] MCHC (RBC) [Mass/Vol] 32.8 g/dL 28.4 - 34.8 g/dL [facility] MCV (RBC) [Entitic vol] 89.3 fL 82.6 - 102.9 fL [facility] Monocytes/100 WBC (Bld) 7 % 3 - 12 % [facility] NRBC Automated 0.0 0.0 per 100 WBC [facility] Platelet distribution width (Bld) [Ratio] 12.5 % 11.8 - 14.4 % [facility] Platelet mean volume (Bld) [Entitic vol] 9.7 fL 8.1 - 13.5 fL [facility] Platelets (Bld) [#/Vol] 249 10*3/uL [facility] RBC (Bld) [#/Vol] 4.03 10*6/uL 3.95 - 5.1 1 m/uL [facility] Segmented neutrophils/100 WBC (Bld) 85 % High 36 - 65 % [facility] Segs Absolute 17.63 High [facility] WBC (Bld) [#/Vol] 20.8 10*3/uL High [facility] CMPon 09-24-2022 Albumin [Mass/Vol] 3.2 g/dL Low 3.5 - 5.2 g/dL [facility] Albumin/Globulin [Mass ratio] 0.9 {ratio} Low 1.0 - 2.5 [facility] ALP (Bld) [Catalytic activity/Vol] 117 U/L High 35 - 104 U/L [facility] ALT [Catalytic activity/Vol] 20 U/L 5 - 33 U/L [facility] Anion gap [Moles/Vol] 9 mmol/L 9 - 17 mmol/L [facility] AST [Catalytic activity/Vol] 18 U/L NINF - 32 U/L [facility] Bilirubin [Mass/Vol] 1.9 mg/dL High 0.3 - 1.2 mg/dL [facility] Calcium [Mass/Vol] 8.4 mg/dL Low 8.6 - 10. 4 mg/dL [facility] Chloride [Moles/Vol] 95 mmol/L Low 98 - 107 mmol/L [facility] CO2 [Moles/Vol] 24 mmol/L 20 - 31 mmol/L [facility] Creatinine [Mass/Vol] 0.73 mg/dL 0.50 - 0.90 mg/dL [facility] GFR/1.73 sq M.predicted MDRD (S/P/Bld) [Vol rate/Area] - PINF [facility] Comment on above: Effective Jun 26, 2022 These results are not intended for use in patients <18 years of age. eGFR results are calculated without a race factor using the 2020 CKD-EPI equation. Careful clinical correlation is recommended, particularly when comparing to results calculated using previous equations. The CKD-EPI equation is less accurate in patients with extremes of muscle mass, extra-renal metabolism of creatine, excessive creatine ingestion, or following therapy that affects renal tubular secretion. Glucose [Mass/Vol] 96 mg/dL 70 - 99 mg/dL [facility] [employer] [place] [employer] Potassium [Moles/Vol] 3.7 mmol/L 3.7 - 5.3 mmol/L [facility] Protein [Mass/Vol] 6.6 g/dL 6.4 - 8.3 g/dL [facility] Sodium [Moles/Vol] 128 mmol/L Low 135 - 144 mmol/L [facility] Urea nitrogen (BldV) [Mass/Vol] 21 mg/dL High 6 - 20 mg/dL [facility] CT ABD/PELVIS WO CONon 09-24 CT ABD/PELVIS WO CON EXAMINATION: CT ABD/PELVIS WO CON, 09/24/2022 1:42 PM EST HISTORY: Tenderness of right lower quadrant of abdomen COMPARISON: None. TECHNIQUE: CT scan of the abdomen and pelvis was performed without IV contrast. CT dose reduction technique was used, including Automated Exposure Control. CT abdomen: Streaky linear multifocal discoid atelectatic/fibrotic opacities involving the mid lobe, lingula, and both lower lobes noted. Subpleural bleb medially involving the right lower lobe measures 19 mm. Heart size is normal. Liver, gallbladder, spleen, pancreas, adrenal glands, and kidneys demonstrate no acute abnormality. CT PELVIS: Uterus is retroverted. IUD device is satisfactory within the endometrial cavity. There is a small volume of free pelvic fluid identified. The right ovary is suggested on image #106 and appears otherwise unremarkable. There appears to be a dominant mass anterior to the uterus within the pelvis. It appears to be located within the left ovary and measures 7.5 x 6.1 cm on image 113. This contains both soft tissue and fatty components and measures 5.5 cm superior to inferior. A calcified component within the lesion to the left has transverse diameter of 11 mm. There is a large calcified focus within the appendix with length of 3.1 cm. Marked inflammatory changes about the appendix are noted. Distal to the stone the appendix has diameter of at least 1.3 cm. There is a collection of fluid containing a gas bubble in this region likely related to perforation with abscess creation. This has transverse width of at least 4.9 cm. On axial imaging the appendiceal wall demonstrates circumferential thickening. On image 84 this has transverse width of 16 mm. There is secondary thickened appearance to the cecum and adjacent distal/terminal ileal segments. There is secondary thickening of the sigmoid segment. No acute osseous abnormality is identified. Urinary bladder is partially collapsed. Subcentimeter pelvic phleboliths are identified. No acute osseous abnormality. IMPRESSION: 1. Acute perforated appendicitis containing large proximally noted appendicolith, 3.1 cm in length. 2. Associated periappendiceal abscess is identified, 4.9 x 3.3 x 3.8 cm. 3. Secondary inflammatory changes involving the cecum, distal small bowel, and sigmoid segment of the colon are noted. 4. 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 5. IUD device in satisfactory position. Small volume of free pelvic fluid is present. Report called to Dr. Shukla at 2:57 PM on 09/24/2022. Electronically authenticated by: MARGARITA GARCIA Date: 2022-09-24 15:22 Normal [facility] CULTURE URINEon 09-24-2022 CULTURE URINE Culture Observations : LIGHT GROWTH OF MIXED GENITAL JASON. NO POTENTIAL PATHOGENS SEEN. Normal [facility] Comment on above: Performed By: #### U RCX #### [facility] [address] [place] [address] Dr. Steve Olsen Covid-19 PCR ([facility])on SARS-CoV-2 (COVID-19) RNA CARTER+probe Ql (Unsp spec) Not detected Normal NOT DETECTED [facility] Comment on above: Result Comment: When diagnostic testing is negative, the possibility of a false negative should be considered in the context of a patient's recent exposures and the presence of clinical signs and symptoms consistent with SARS-CoV-2. This test is not yet approved or cleared by the [place] FDA. When there are no FDA-approved or cleared tests available, and other criteria are met, FDA can make tests available under an emergency access mechanism called an Emergency Use Authorization (EUA). The EUA for this test is supported by the Technology Sales Specialist of Health and Human Service's declaration that circumstances exist to justify the emergency use of in vitro diagnostics for the detection and/or diagnosis of the virus that causes COVID-19. This EUA will remain in effect for the duration of the COVID-19 declaration justifying emergency of IVDs, unless it is terminated or revoked by the FDA (after which the test may no longer be used). Performed By: #### C VDTBH #### [facility] [address] [place] [address] Dr. Steve DE LA O URINE PROFILEon 3 Bilirubin Ql (U) MODERATE Abnormal NEGATIVE [facility] Comment on above: Performed By: #### C BC #### [facility] [address] [place] [address] Dr. Steve Olsen Clarity (U) CLEAR Normal CLEAR [facility] Comment on above: Performed By: #### C BC #### [facility] [address] [place] [address] Dr. Steve Olsen Color (U) DK. ORANGE Abnormal YELLOW [facility] Comment on above: Performed By: #### C BC #### [facility] [address] [place] [address] Dr. Steve ROY A micrscopic examination will be performed if indicated. Normal [facility] Comment on above: Performed By: #### C BC #### [facility] [address] [place] [address] Dr. Steve Olsen Glucose Ql (U) 100 mg/dl Abnormal NEGATIVE [facility] Comment on above: Performed By: #### C BC #### [facility] [address] [place] [address] Dr. Steve Olsen Hemoglobin Ql (U) MODERATE Abnormal NEGATIVE [facility] Comment on above: Performed By: #### C BC #### [facility] [address] [place] [address] Dr. Steve Olsen Ketones Ql (U) 15 mg/dl Abnormal NEGATIVE [facility] Comment on above: Performed By: #### C BC #### [facility] [address] [place] [address] Dr. Steve Olsen LEUKOCYTES Negative Normal NEGATIVE [facility] Comment on above: Performed By: #### C BC #### [facility] [address] [place] [address] Dr. Steve Olsen Nitrite Ql (U) Positive Abnormal NEGATIVE [facility] Comment on above: Performed By: #### C BC #### [facility] [address] [address] [address] Steve Olsen pH (U) 5.5 [pH] Normal 5-9 [facility] Comment on above: Performed By: #### C BC #### [facility] [address] [address] [address] Steve Olsen Protein (U) [Mass/Vol] 100 mg/dL Abnormal NEGATIVE/ TRACE [facility] Comment on above: Performed By: #### C BC #### [facility] [address] [place] [address] Dr. Steve Olsen SPEC GRAVITY 1.020 Normal 1.005-<=1.025 [facility] Comment on above: Performed By: #### C BC #### [facility] [address] [place] [address] Dr. Steve Olsen UR MICRO IND INDICATED Normal [facility] Comment on above: Performed By: #### C BC #### [facility] [address] [address] [address] Steve Olsen Urobilinogen Qn (U) 8 {Vikas'U}/dL Abnormal 0.2 - 1.0 [facility] Comment on above: Performed By: #### C BC #### [facility] [address] [place] [address] Dr. Steve Olsen LIPASEon 09-24-2022 Lipase [Catalytic activity/Vol] 47.0 U/L Critically low 73.0-393.0 [facility] Comment on above: Performed By: #### A MY, CMP, LIPA #### [facility] [address] [place] [address] Dr. Steve Olsen Lactic Acidon 09-24-2022 Lactic Acid, Whole Blood 1.1 mmol/L 0.7 - 2.1 mmol/L [facility] Lipaseon 09-24-2022 Lipase [Catalytic activity/Vol] 10 U/L Low 13 - 60 U/L [facility] No Panel Informationon 09-24 Interpretation and review of laboratory results Abnormal [facility] URon 09-24-2022 , QUAL Negative Normal NEGATIVE [facility] Comment on above: Performed By: #### C BC #### [facility] [address] [address] [address] Steve Olsen PROF 14(COMP METB)on 023 Albumin [Mass/Vol] 3.2 g/dL Critically low 3.4-5.0 Th [facility] Comment on above: Performed By: #### A MY, CMP, LIPA #### [facility] [address] [address] [address] Steve Olsen Albumin/Globulin [Mass ratio] 0.7 {ratio} Normal [facility] Comment on above: Performed By: #### A MY, CMP, LIPA #### [facility] [address] [address] [address] Steve Olsen ALP [Catalytic activity/Vol] 130 U/L Critically high 46-116 [facility] Comment on above: Performed By: #### A MY, CMP, LIPA #### [facility] [address] [address] [address] Steve Olsen ALT [Catalytic activity/Vol] 31 U/L Normal 14-59 [facility] Comment on above: Performed By: #### A MY, CMP, LIPA #### [facility] [address] [address] [address] Steve Olsen Anion gap [Moles/Vol] 11.0 mmol/L Normal [facility] Comment on above: Performed By: #### A MY, CMP, LIPA #### [facility] [address] [address] [address] Steve Olsen AST [Catalytic activity/Vol] 29 U/L Normal 15-37 [facility] Comment on above: Performed By: #### A MY, CMP, LIPA #### [facility] [address] [address] [address] Steve Olsen Bilirubin [Mass/Vol] 2.3 mg/dL Critically high 0.2-1.0 [facility] Comment on above: Performed By: #### A MY, CMP, LIPA #### [facility] [address] [address] [address] Steve Olsen Calcium [Mass/Vol] 8.8 mg/dL Normal 8.5-10.1 [facility] Comment on above: Performed By: #### A MY, CMP, LIPA #### [facility] [address] [place] [address] Dr. Steve Olsen Chloride [Moles/Vol] 94 mmol/L Critically low 98-107 [facility] Comment on above: Performed By: #### A MY, CMP, LIPA #### [facility] [address] [place] [address] Dr. Steve Olsen CO2 [Moles/Vol] 28.4 mmol/L Normal 21.0-32.0 [facility] Comment on above: Performed By: #### A MY, CMP, LIPA #### [facility] [address] [place] [address] Dr. Steve Olsen Creatinine [Mass/Vol] 1.11 mg/dL Critically high 0.55-1.02 [facility] Comment on above: Performed By: #### A MY, CMP, LIPA #### [facility] [address] [place] [address] Dr. Steve Olsen EGFR-AF NEPALESE >60 Normal >=60 [facility] Comment on above: Performed By: #### A MY, CMP, LIPA #### [facility] [address] [place] [address] Dr. Steve Olsen EGFR-NON AF NEPALESE 53 mL/min/1.73m2 Critically low >=60 [facility] Comment on above: Performed By: #### A MY, CMP, LIPA #### [facility] [address] [place] [address] Dr. Steve Olsen Globulin (S) [Mass/Vol] 4.6 g/dL Normal [facility] Comment on above: Performed By: #### A MY, CMP, LIPA #### [facility] [address] [place], [place] [id number] Dr. Steve Olsen Glucose [Mass/Vol] 134 mg/dL Critically high 74-106 T [facility] Comment on above: Performed By: #### A MY, CMP, LIPA #### [facility] [address] [address] [address] Steve Olsen Potassium [Moles/Vol] 3.4 mmol/L Critically low 3.5-5.1 [facility] Comment on above: Performed By: #### A MY, CMP, LIPA #### [facility] [address] [address] [address] Steve Olsen Protein [Mass/Vol] 7.8 g/dL Normal 6.4-8.2 [facility] Comment on above: Performed By: #### A MY, CMP, LIPA #### [facility] [address] [place] [address] Dr. Steve Olsen Sodium [Moles/Vol] 130 mmol/L Critically low 136-145 [facility] Comment on above: Performed By: #### A MY, CMP, LIPA #### [facility] [address] [address] [address] Steve Olsen Urea nitrogen [Mass/Vol] 26.0 mg/dL Critically high 7.0-18.0 [facility] Comment on above: Performed By: #### A MY, CMP, LIPA #### [facility] [address] [place] [address] Dr. Steve Olsen Urea nitrogen/Creatinine [Mass ratio] 23.4 mg/mg Normal [facility] Comment on above: Performed By: #### A MY, CMP, LIPA #### [facility] [address] [place] [address] Dr. Steve Olsen Protime-INRon 09-24-2022 INR Coag (Bld) [Relative time] 1.2 {INR} [facility] Comment on above: Therapeutic Range: Moderate Anticoagulant Intensity: INR = 2.0-3.0 High Anticoagulant Intensity: INR = 2.5-3.5 PT Coag (PPP) [Time] 12.3 s [facility] URINE MICROSCOPIC ONLYon BACTERIA TRACE Abnormal NONE SEEN [facility] Comment on above: Performed By: #### C BC #### [facility] [address] [place] [address] Dr. Steve Olsen Bacteria identified Cx Nom (U) INDICATED Normal [facility] Comment on above: Performed By: #### C BC #### [facility] [address] [place] [address] Dr. Steve Olsen CAST SEEN Abnormal NONE SEEN [facility] Comment on above: Performed By: #### C BC #### [facility] [address] [place] [address] Dr. Steve Olsen Crystals LM Nom (Urine sed) NONE SEEN Normal NONE SEEN [facility] Comment on above: Performed By: #### C BC #### [facility] [address] [place] [address] Dr. Steve Olsen Epithelial cells LM Ql (Urine sed) FEW Abnormal NONE SEEN /RARE [facility] Comment on above: Performed By: #### C BC #### [facility] [address] [place] [address] Dr. Steve Olsen MUCOUS SMALL Abnormal NONE SEEN [facility] Comment on above: Performed By: #### C BC #### [facility] [address] [place] [address] Dr. Steve Olsen RBC 0-2 Normal 0-2 [facility] Comment on above: Performed By: #### C BC #### [facility] [address] [place] [address] Dr. Steve Olsen WBC 0-2 Abnormal NONE SEEN [facility] Comment on above: Performed By: #### C BC #### [facility] [address] [place] [address] Dr. Steve Olsen MG MAMM SCREEN 3D GABBY CADon 09-20-2022 MG MAMM SCREEN 3D GABBY CAD Patient: JOHANA SRIVASTAVA Exam Date: 09/20/2022 : 1975 Gender:F Ordering : DR NEENA YOUNGBLOOD . Admission #: [id number] Family : Order #: [id number] CLICK HERE TO VIEW EXAM RADIOLOGY REPORT PROCEDURE: MAMMOGRAM SCREENING 3D BILATERAL CAD COMPARISON: MG MAMM LT DIAG FU, 09/20/2020. MG MAMM SCREEN 3D GABBY CAD, 09/15/2021. INDICATIONS: Calculator Name NCI Breast Cancer Risk Assessment Tool 5 Year Breast Cancer Risk 1.70% Lifetime Breast Cancer Risk 12.80% Personal Breast Cancer No Personal Ovarian Cancer No Treatments None Family Cancers Grandfather-maternal with colon cancer at age 70. LOCATION: [facility] BREAST COMPOSITION: Extremely dense, which lowers the sensitivity of mammography. FINDINGS: DIAGNOSTIC CATEGORY 0--INCOMPLETE: NEED ADDITIONAL IMAGING EVALUATION. Scattered benign-appearing nodules are present. Scattered benign-appearing calcifications are present. Scattered benign-appearing lymph nodes are present. RIGHT BREAST: New lobular nodule measuring 6.7 x 4.4 mm best seen on cc tomographic image number 45. Further spot compression ultrasound recommended Multiple additional round nodules are grossly stable LEFT BREAST: Multiple nodules grossly stable. RECOMMENDATIONS: ADDITIONAL MAMMOGRAPHIC VIEWS REQUIRED: RIGHT BREAST - spot compression ULTRASOUND: RIGHT BREAST PLEASE NOTE: A NORMAL MAMMOGRAM DOES NOT EXCLUDE THE POSSIBILITY OF BREAST CANCER. A CLINICALLY SUSPICIOUS PALPABLE LUMP SHOULD BE BIOPSIED. Dictated by: Rachael Rangel MD on 09/21/2022 at 11:29 Approved by: Rachael Rangel MD on 09/21/2022 at 11:34 Normal [facility] Vital Signs Date Time Vital Sign Value Performing Clinician Facility 05-28-2025 09:44-0400 Body height 165.1 cm [employer] Work Phone: [facility] 05-28-2025 09:44-0400 Body mass index (BMI) [Ratio] 26.6 kg/m2 [employer] DO Work Phone: [facility] 05-28-2025 09:44-0400 Body weight 72.74 kg [employer] DO Work Phone: [facility] 05-28-2025 09:44-0400 Diastolic blood pressure 89 mm[Hg] [employer] DO Work Phone: [facility] 05-28-2025 09:44-0400 Heart rate 71 /min [employer] Work Phone: [facility] 05-28-2025 09:44-0400 Respiratory rate 12 /min Reed Ball DO Work Phone: [facility] 05-28-2025 09:44-0400 Systolic blood pressure 128 mm[Hg] Reed Ball DO Work Phone: [facility] 07-08-2024 10:52-0400 Body height 165.1 cm Nasim Gifford DO Work Phone: [facility] 07-08-2024 10:52-0400 Body mass index (BMI) [Ratio] 26.63 kg/m2 Nasim Gifford DO Work Phone: [facility] 07-08-2024 10:52-0400 Body weight 72.58 kg Nasim Gifford DO Work Phone: [facility] 07-08-2024 10:52-0400 Diastolic blood pressure 78 mm[Hg] Nasim Gifford DO Work Phone: [facility] 07-08-2024 10:52-0400 Systolic blood pressure 130 mm[Hg] Nasim Gifford DO Work Phone: [facility] 05-24-2023 13:35-0400 Diastolic blood pressure 86 mm[Hg] DO Reed Ball Work Phone: [facility] 05-24-2023 13:35-0400 Heart rate 98 /min DO Reed Ball Work Phone: [facility] 05-24-2023 13:35-0400 SaO2% (BldA) [Mass fraction] 99 % DO Reed Ball Work Phone: [facility] 05-24-2023 13:35-0400 Systolic blood pressure 130 mm[Hg] DO Reed Ball Work Phone: [facility] 05-24-2023 11:34-0400 Body temperature 97.9 [degF] DO Reed Ball Work Phone: [facility] 05-24-2023 11:34-0400 Respiratory rate 16 /min DO Reed Ball Work Phone: [facility] 05-24-2023 10:21-0400 Inhaled oxygen flow rate 6 L/min DO Reed Ball Work Phone: [facility] 05-24-2023 08:23-0400 Body height 165.1 cm DO Reed Ball Work Phone: [facility] 05-24-2023 08:23-0400 Body mass index (BMI) [Ratio] 28.3 kg/m2 DO Reed Ball Work Phone: [facility] 05-24-2023 08:23-0400 Body weight 77.11 kg DO Reed Ball Work Phone: [facility] 04-24-2023 11:30-0400 Body height 165.1 cm Reed Ball Other Located [facility] [employer] Other 04-24-2023 11:30-0400 Body mass index (BMI) [Ratio] 28.35 kg/m2 Reed Ball Other [employer] [facility] [employer] Other 04-24-2023 11:30-0400 Body weight 77.29 kg Reed Ball Other [employer] Other 04-24-2023 11:30-0400 Diastolic blood pressure 81 mm[Hg] Reed Ball Other [employer] Other 04-24-2023 11:30-0400 Respiratory rate 16 /min Reed Ball Other [employer] Other 04-24-2023 11:30-0400 Systolic blood pressure 126 mm[Hg] Reed Ball Other [employer] Other 12-14-2022 17:00-0400 Diastolic blood pressure 79 mm[Hg] Katarina Ash MD Work Phone: [facility] 12-14-2022 17:00-0400 Heart rate 120 /min Katarina Ash MD Work Phone: [facility] [employer] 12-14-2022 17:00-0400 Respiratory rate 17 /min Katarina Ash MD [facility] Phone[facility] 12-14-2022 17:00-0400 SaO2% (BldA) [Mass fraction] 98 % Katarina Ash MD Work Phone: [facility] [employer] 12-14-2022 17:00-0400 Systolic blood pressure 104 mm[Hg] Katarina Ash MD Work Phone: [facility] [employer] 12-14-2022 14:59-0400 Body temperature 97.59 [degF] Katarina Ash MD Work Phone: [facility] [employer] 12-12-2022 15:01-0400 Body height 165.1 cm Katarina Ash MD Work Phone: [facility] [employer] 12-12-2022 15:01-0400 Body mass index (BMI) [Ratio] 26.63 kg/m2 Katarina Ash MD Work Phone: [facility] [employer] 12-12-2022 15:01-0400 Body weight 72.58 kg Katarina Ash MD Work Phone: [facility] [employer] 11-14-2022 10:40-0500 Diastolic blood pressure 78 mm[Hg] Caterina Imel DO Work Phone: [facility] [employer] 11-14-2022 10:40-0500 Heart rate 92 /min Caterina Imel DO Work Phone: [facility] [employer] 11-14-2022 10:40-0500 Respiratory rate 15 /min Caterina Imel DO Work Phone: [facility] [employer] 11-14-2022 10:40-0500 SaO2% (BldA) [Mass fraction] 96 % Caterina Imel DO Work Phone: [facility] [employer] 11-14-2022 10:40-0500 Systolic blood pressure 112 mm[Hg] Caterina Imel DO Work Phone: [facility] [employer] 11-14-2022 10:30-0500 Body temperature 98.4 [degF] Caterina Castellanosel DO Work Phone: [facility] [employer] 11-14-2022 08:12-0500 Body height 165.1 cm Caterina Wilde DO Work Phone: [facility] [employer] 11-14-2022 08:12-0500 Body mass index (BMI) [Ratio] 26.63 kg/m2 Caterina Castellanosel DO Work Phone: [facility] [employer] 11-14-2022 08:12-0500 Body weight 72.58 kg Caterina Wilde DO Work Phone: [facility] [employer] 11-08-2022 08:48-0500 Body height 165.1 cm [facility] [employer] 11-08-2022 08:48-0500 Body mass index (BMI) [Ratio] 26.63 kg/m2 [facility] [employer] 11-08-2022 08:48-0500 Body weight 72.58 kg [facility] [employer] 10-02-2022 09:58-0500 Body height 165.1 cm Joseph Gallegos DO Work Phone: [employer] 10-02-2022 07:12-0500 Body temperature 97.2 [degF] Joseph Gallegos DO Work Phone: [facility] [employer] 10-02-2022 07:12-0500 Diastolic blood pressure 75 mm[Hg] Joseph Gallegos DO Work Phone: [facility] [employer] 10-02-2022 07:12-0500 Heart rate 80 /min Joseph Gallegos DO Work Phone: [facility] [employer] 10-02-2022 07:12-0500 Respiratory rate 16 /min Joseph Gallegos DO Work Phone: [facility] [employer] 10-02-2022 07:12-0500 SaO2% (BldA) [Mass fraction] 100 % Joseph Gallegos DO Work Phone: [employer] 10-02-2022 07:12-0500 Systolic blood pressure 119 mm[Hg] Joseph Gallegos DO Work Phone: [employer] 09-26-2022 02:05-0500 Body mass index (BMI) [Ratio] 26.85 kg/m2 Joseph Gallegos DO Work Phone: [employer] 09-26-2022 02:05-0500 Body weight 73.2 kg Joseph Gallegos DO Work Phone: [employer] Encounters Encounter Date Encounter Type Care Provider Facility Start: 06-04-2025 End: 06-04-2025 Telephone encounter Nasim Gifford DO Work Phone: [facility] Start: 05-28-2025 End: 05-28-2025 ambulatory Reed Sánchez DO Work Phone: [facility] Work Phone: Start: 05-28-2025 End: 05-28-2025 Patient encounter procedure Reed Sánchez DO [facility] Work Phone: Start: 05-28-2025 End: 05-28-2025 Patient encounter status Reed Sánchez [facility] Start: 09-03-2024 End: 09-03-2024 ambulatory Reed Princess Facility:[facility] Start: 07-08-2024 End: 07-08-2024 Patient encounter status Nasim Gifford DO Work Phone: [facility] Start: 07-08-2024 End: 07-08-2024 Periodic preventive med est patient 40-64yrs Nasim [facility]ord [facility] Comment on above: Encounter for gyneco logical examination without abnormal finding; Encounter for Papanicolaou smear of vagina; Breast cancer screening by mammogram; Postmenopausal HRT (hormone replacement therapy) Start: 07-08-2024 End: 07-08-2024 ambulatory NASIM D RAUL Not Available Start: 07-12-2023 End: 07-12-2023 ambulatory Reed Sánchez Other [employer] Other Start: 07-12-2023 Nursing evaluation o f patient and report Reed Sánchez [facility] Start: 07-12-2023 Telephone encounter Reed Sánchez [facility] Start: 05-24-2023 Telephone encounter Reed Sánchez [facility] Start: 05-24-2023 End: 05-24-2023 Admission to same day surgery center DO Reed Ball Work Phone: [facility] [place] Start: 05-24-2023 End: 05-24-2023 ambulatory DO Reed Ball Work Phone: [facility] Work Phone: Start: 05-16-2023 End: 05-16-2023 ambulatory DO Reed Ball Work Phone: [facility] Work Phone: Start: 05-16-2023 End: 05-16-2023 Departed Referred DO Reed Ball Work Phone: [facility] Work Phone: Start: 05-16-2023 End: 05-16-2023 Patient encounter procedure DO Reed Ball Work Phone: [facility] Work Phone: Start: 04-25-2023 End: 04-25-2023 ambulatory Reed Sánchez Other [employer] Other Start: 04-25-2023 Telephone encounter Reed Sánchez [facility] Start: 04-24-2023 End: 04-24-2023 ambulatory Reed Sánchez Other [employer] Other Start: 04-24-2023 Encounter for genera l adult medical examination without abnormal findings Reed Sánchez [facility] Start: 04-24-2023 Periodic preventive med est patient 40-64yrs Reed Sánchez [facility] Start: 04-02-2023 End: 04-02-2023 ambulatory Reed Sánchez Other Located [facility] [employer] Other Start: 04-02-2023 Office outpatient vi sit 15 minutes Reed Sánchez [facility] Start: 12-14-2022 End: 12-14-2022 ambulatory KATARINA ASH [facility] Start: 12-14-2022 End: 12-14-2022 Subsequent hospital visit by physician Katarina Ash MD Work Phone: [facility] Comment on above: Postoperative pain ( Primary Dx); Perforated appendix Start: 11-16-2022 End: 11-16-2022 ambulatory DO [facility] Work Phone: [facility] Work Phone: Start: 11-16-2022 End: 11-16-2022 Patient encounter procedure DO [facility] Work Phone: [facility] [place] Work Phone: Start: 11-14-2022 End: 11-14-2022 ambulatory [facility] Start: 11-14-2022 End: 11-14-2022 Subsequent hospital visit by physician Caterina Wilde DO Work Phone: [facility] Comment on above: Colon cancer screeni ng Start: 11-08-2022 End: 11-13-2022 ambulatory [facility] Start: 11-08-2022 End: 11-12-2022 Subsequent hospital visit by physician Maria De Jesus Pat Rm 3 [facility] Pre-Admit Testing Start: 10-06-2022 End: 10-07-[address] NEENA YOUNGBLOOD Facility:[facility] Start: 09-25-2022 End: 10-02-2022 Evaluation and management of inpatient JOHN CERNA [facility] Start: 09-24-2022 End: 10-02-2022 Evaluation and management of inpatient Joseph Gallegos DO Work Phone: [facility] S[facility] Comment on above: Appendicitis, unspec ified appendicitis type (Primary Dx) Start: 09-24-2022 End: 09-25-[address] REED SÁNCHEZ Facility:[facility] Start: 09-20-2022 End: 09-21-[address] REED SÁNCHEZ Facility:[facility] Start: 09-13-2022 End: 09-13-[address] NEENA YOUNGBLOOD Facility:[facility] Start: 02-16-2022 Gynecological examin ation normal Reed Sánchez Other [employer] Other Start: 08-26-2020 Gynecological examin ation abnormal Reed Sánchez Other [employer] Other Start: 08-26-2020 History of abnormal cervical Papanicolaou smear Reed Sánchez Other [employer] Other Start: 03-28-2018 End: 03-28-2018 Pre-procedure evaluation check Reed Princess Other [employer] Other Procedures Date Procedure Procedure Detail Performing Clinician Start: 09-03-2024 Mammography Nasim Hebert uner DO Work Phone: Start: 05-24-2023 Total hysterectomy v ia vaginal approach DO [employer] Work Phone: Start: 12-14-2022 Urine test visual color cmprsn meths Katarina Ash MD Work Phone: Start: 11-21-2022 Mammography Nasim Hebert uner DO Work Phone: Start: 11-16-2022 MRI of bilateral nga asts with contrast DO [employer] Work Phone: Start: 11-14-2022 Urine test visual color cmprsn meths Caterina Wilde DO Work Phone: Start: 11-14-2022 Colonoscopy Caterina Imyesenia DO Work Phone: Start: 10-02-2022 Blood count complete auto&auto difrntl wbc Js Ordonez DO Work Phone: Start: 10-01-2022 BASIC METABOLIC PANE L W/ REFLEX TO MG FOR LOW K John Cerna MD Work Phone: Start: 10-01-2022 Blood count complete auto&auto difrntl wbc John Cerna MD Work Phone: Start: 09-30-2022 BASIC METABOLIC PANE L W/ REFLEX TO MG FOR LOW K John Cerna MD Work Phone: Start: 09-30-2022 Blood count complete auto&auto difrntl wbc John Cerna MD Work Phone: Start: 09-29-2022 Assay of magnesium Latasha Cerna MD Work Phone: Start: 09-29-2022 BASIC METABOLIC PANE L W/ REFLEX TO MG FOR LOW K John Cerna MD Work Phone: Start: 09-28-2022 BASIC METABOLIC PANE L W/ REFLEX TO MG FOR LOW K John Cerna MD Work Phone: Start: 09-28-2022 Blood count complete auto&auto difrntl wbc John Cerna MD Work Phone: Start: 09-28-2022 Ct abdomen & pelvis w/contrast material Florencia Nieves BIOMEDICAL SCIENTIST - STORAGE ADMINISTRATOR Work Phone: Start: 09-27-2022 Assay of magnesium Latasha Cerna MD Work Phone: Start: 09-27-2022 BASIC METABOLIC PANE L W/ REFLEX TO MG FOR LOW K John Cerna MD Work Phone: Start: 09-26-2022 BASIC METABOLIC PANE L W/ REFLEX TO MG FOR LOW K John Cerna MD Work Phone: Start: 09-26-2022 Calcium ionized John Cerna MD Work Phone: Start: 09-25-2022 BASIC METABOLIC PANE L W/ REFLEX TO MG FOR LOW K Briana Mcrae MD Work Phone: Start: 09-25-2022 Ct abdomen & pelvis w/contrast material Arlin Cantrell MD Work Phone: Start: 09-25-2022 Antibody screen Joseph Gallegos DO Work Phone: Start: 09-25-2022 Blood typing serologic abo Briana Mcrae MD Work Phone: Start: 09-24-2022 CULTURE, BLOOD 1 Antoinettechyaito lindy Carey DO Work Phone: Start: 09-24-2022 Culture bacterial bl ood aerobic w/id isolates Jose Carey DO Work Phone: Start: 09-24-2022 Comprehensive metabo lic panel Jose Carey DO Work Phone: Depression screening Troy Sánchez Other Insertion of intraut erine contraceptive device Reed Sánchez Other Mammography Reed Sánchez Other Screening for malign ant neoplasm of breast Reed Sánchez Other Screening for malign ant neoplasm of breast Reed Sánchez Other Plan of Treatment Date Care Activity Detail Author Start: 11-14-2032 Screening for malign ant neoplasm of colon [facility] Start: 07-08-2029 Screening for malign ant neoplasm of cervix [facility] Start: 09-03-2025 Screening for malign ant neoplasm of breast Mammogram [facility] Start: 07-10-2025 End: 07-10-2025 Patient encounter procedure 07/10/2025 10:00 AM EDT Office Visit [facility] [address] [place] [id number] Nasim Gifford, DO [address] [place] [address] [facility] Start: 05-25-2025 Influenza vaccination Influenza Vacc ine (#1) [facility] Start: 09-01-2024 End: 09-07-2025 DBT Breast - bilateral screening Bilateral screening mammogram with tomosynthesis Imaging Routine Breast cancer screening by mammogram Expected: 09/01/2024, Expires: 09/07/2025 [facility] Comment on above: Expected: 09/01/2024 , Expires: 09/07/2025 Start: 05-25-2024 Influenza vaccination Influenza Vacc ine (#1) [facility] Start: 11-21-2023 Screening for malign ant neoplasm of breast Mammogram [facility] Start: 05-24-2023 [facility] Start: 05-24-2023 Hospital admission [facility] Start: 12-14-2022 End: 12-14-2022 Laparoscopic appendectomy APPENDECTOMY LAPAROSCOPIC ROBOTIC Perforated appendix 12/14/2022 11:55 AM EDT [facility] Start: 11-14-2022 End: 11-14-2022 Admission to same day surgery center 11/14/2022 Surgery Endoscopy Caterina Wilde, DO [address] [place] [address] COLORECTAL CANCER SCREENING, NOT HIGH RISK [facility] Comment on above: COLORECTAL CANCER SC REENING, NOT HIGH RISK Start: 11-14-2022 Subsequent hospital visit by physician 11/14/2022 Hospital Encounter Endoscopy Caterina Wilde, DO [address] [place] [address] [facility] Start: 11-14-2022 End: 11-14-2022 Colon ca scrn not hi rsk ind [facility] Start: 04-24-2022 Influenza vaccination Flu vaccine (# 1) [facility] Start: 10-27-2021 COVID-19 Vaccine (4 - Booster for Pfizer series) COVID-19 Vaccine (4 - Booster for Pfizer series) [facility] Start: 2019 Screening for malign ant neoplasm of colon [facility] Start: 2014 Lipid panel Lipids [facility] Start: 2009 Diabetes screen Diabetes screen [facility] Start: 2004 Screening for malign ant neoplasm of cervix [facility] Start: 1995 Screening for malign ant neoplasm of cervix Pap smear [facility] Start: 1993 DTaP/Tdap/Td vaccine (1 - Tdap) DTaP/Tdap/Td vaccine (1 - Tdap) [employer] Start: 1992 Hepatitis C screening Hepatitis C sc reen [facility] Start: 1989 HIV screening HIV screen [facility] [employer] Start: 1986 Depression Screen Depression Screen [facility] Start: 1974 Screening for malign ant neoplasm of colon [facility] [employer] End: 10-05-2022 CBC W Auto Differential panel - Blood CBC with Auto Differential Lab Routine Daily for 4 Occurrences starting 10/02/2022 until 10/05/2022, 1 completed [employer] Work Phone: Comment on above: Daily for 4 Occurren steve starting 10/02/2022 until 10/05/2022, 1 completed Comprehensive metabo lic 2000 panel - Serum or Plasma [facility] Culture, Urine [facility] [employer] Work Phone: Comment on above: Release Upon Orderin g for 1 Occurrences starting 12/14/2022 IGP,rfxAptima HPV all,16/18,45 IGP,rfxAptima HPV all,16/18,45 Pathology and Cytology Routine Encounter for Papanicolaou smear of vagina Ordered: 07/08/2024 [facility] [employer] Work Phone: Comment on above: Ordered: 07/08/2024 End: 12-14-2022 INITIATE PACU OXYGEN THERAPY PROTOCOL Initiate PACU Oxygen Therapy Protocol Respiratory Care Routine Continuous until discontinued starting 12/14/2022 [facility] [employer] Work Phone: Comment on above: Continuous until dis continued starting 12/14/2022 Oxygen therapy [[facility] Data Set] Initiate Oxygen Therapy Protocol Respiratory Care Routine As Needed until discontinued starting 11/14/2022 [facility] [employer] Work Phone: Comment on above: As Needed until disc ontinued starting 11/14/2022 Patient referral [facility] Work Phone: Spirometry panel Incentive marcela metry Respiratory Care Routine Every 2hr while awake until discontinued starting 09/25/2022 [employer] Phone: Comment on above: Every 2hr while awak e until discontinued starting 09/25/2022 Surgical Pathology Surgical Path ology Lab Routine Colon cancer screening Release Upon Ordering for 1 Occurrences starting 11/14/2022 [employer] Phone: Comment on above: Release Upon Orderin g for 1 Occurrences starting 11/14/2022 Surgical Pathology Surgical Path ology Lab Routine Perforated appendix Release Upon Ordering for 1 Occurrences starting 12/14/2022 [employer] Phone: Comment on above: Release Upon Orderin g for 1 Occurrences starting 12/14/2022 [facility] Immunizations Immunization Date Immunization Notes [facility] COVID-19 mRNA, Comirnaty (Pfizer) DO [facility] [place] Phone: [facility] 02-02-2021 COVID-19 mRNA, Comirnaty (Pfizer) DO [employer] Work Phone: [facility] 01-11-2021 COVID-19 mRNA, Comirnaty (Pfizer) DO [facility] [place] Phone: [facility] Payers Date Payer Category Payer Self-pay 2024 Private Health Insurance [employer] [id number] 2024 Unknown [id number] 1974 Unknown [id number] 1974 Unknown [id number]. 593 1974 Unknown [id number]. 593 1974 Unknown [id number] [id number]. 593 1974 Unknown [id number] [id number]. 176 1974 Unknown [id number]. 176 1974 Unknown [id number] [id number]. 175 1974 Unknown [id number] [id number]. 175 1974 Unknown [id number] [id number]. 1259 1959 Unknown [id number]. [id number] Unknown [id number] Unknown [id number]. 531 Unknown Regular Insurance [id number] Social History Date Type Detail Facility Start: 09-26-2022 End: 05-24-2023 Tobacco smoking status [facility] Never smoked tobacco [employer] Start: 09-26-2022 End: 05-09-2023 Tobacco use and exposure Smokeless tobacco non-user [employer] Phone: Start: 09-26-2022 End: 12-14-2022 Alcohol intake Ex-drinker (finding) [facility] Phone: Start: 09-26-2022 History SDOH Alcohol Frequency 1 [facility] Phone: Start: 09-26-2022 History SDOH Alcohol Std Drinks 0 [facility] Phone: Start: 1975 Sex Assigned At Not on file [facility] Phone: Start: 09-14-2022 End: 12-12-2022 Exposure to SARS-CoV-2 (event) Not sure [employer] Phone: Start: 1975 Sex Assigned At Female [facility] Start: 07-08-2024 Sex Assigned At [employer] Other Start: 05-09-2023 Tobacco smoking status NHIS Ex-smoker [facility] History of tobacco use Current smoker [facility] History of tobacco use Cigarette Smoker [facility] Start: 07-08-2024 Alcoholic beverage intake Current drinker of alcohol (finding) [facility] Start: 07-08-2024 Alcoholic beverage intake [facility] How often to you hav e a drink containing alcohol? Monthly or less [facility] How many standard drinks containing alcohol do you have on a typical day? 1 or 2 [facility] How often do you hav e 6 or more drinks on 1 occasion? Never [facility] Start: 05-09-2023 Alcohol Comment occasional [facility] Start: 05-03-2023 Gender identity Identifies as female gender (finding) [facility] Start: 05-03-2023 Sexual orientation Heterosexual (finding) [facility] Sex Female (finding) [facility] Goals Date Patient Goal Desired Activity /State Clinical Notes 09-27-2022 to 06-04-2025 Telephone Encounter - Tiago Ricks - 06/04/2025 2:24 PM EDTTelephone Encounter - Tiago Ricks - 06/04/2025 2:24 PM Lillian Stiles MA - 07/08/2024 10:45 AM EDT Note Date & Type Note Facility 06-04-2025 Telephone encount er Note letter sent 06/04/25 to r/s appt on 07/10/25 due to [facility] being out of the office [facility] 06-04-2025 Miscellaneous Notes Formattin g of this note might be different from the original. letter sent 06/04/25 to r/s appt on 07/10/25 due to [facility] being out of the office documented in this encounter [facility] 07-08-2024 History of Presen t illness Narrative Images from the original note were not included. Nasim Gifford, DO Obstetrics and Gynecology Johana Srivastava 1975 07/08/24 [id number] Yearly Wellness Exam Chief Complaint Patient presents with Gynecologic Exam LMP: AMAN BSO 04/2023 HRT: Estradiol 1 MG - satisfied - will call for refills. Last pap 09-13-22 neg. Last mammogram 08-31-23 [facility]. [facility] [facility] [place]. Denies breast, urinary, or bowel concerns. Visit Vitals BP 130/78 Ht 5' 5 Wt 160 lb BMI 26.63 kg/m OB Status Hysterectomy Smoking Status Former BSA 1.82 m OB History Para Term AB Living 6 3 3 3 SAB IAB Ectopic Multiple Live Births 3 3 # Outcome Date GA Lbr Todd/2nd Weight Sex Type Anes PTL Lv 6 Para AMBER 5 Para AMBER 4 SAB 3 Para CS-LTranv AMBER 2 SAB 1 SAB Obstetric Comments Heaviest weighed 8 lbs 2 oz Current Outpatient Medications Medication Sig Dispense Refill cetirizine (ZyrTEC) 10 MG tablet Take 1 tablet by mouth if needed. estradiol (Estrace) 1 MG tablet Take 1 tablet (1 mg) by mouth Daily 90 tablet 3 etodolac (Lodine) 500 MG tablet if needed. famotidine (Pepcid) 20 MG tablet if needed. No current facility-administered medications for this visit. Allergies Allergen Reactions Penicillins Hives and Rash Other Reaction(s): Unknown Sulfa Antibiotics Hives, Itching and Rash Other Reaction(s): Unknown Past Surgical History: Procedure Laterality Date APPENDECTOMY 2022 BREAST BIOPSY 2020 CERVICAL BIOPSY W/ LOOP ELECTRODE EXCISION 2018 LEEP SECTION, LOW TRANSVERSE 1999 DILATION AND CURETTAGE 2018 HYSTEROSCOPY 2019 TOTAL ABDOMINAL HYSTERECTOMY W/ BILATERAL SALPINGOOPHORECTOMY 05/24/2023 Past Medical History: Diagnosis Date Abnormal glandular Papanicolaou smear of cervix Arthritis Rt hip Atypical squamous cells cannot exclude high grade squamous intraepithelial lesion on cytologic smear of cervix (ASC-H) BMI 27.0-27.9,adult Breast cyst Breast density Encounter for insertion of Mirena IUD Fat necrosis of breast Menopause ovarian failure Ovarian cyst, right ROS Const: Denies appetite change, fever, chills. Allergy: Denies medication reaction. Ocular: Denies visual acuity change. ENT: Denies hearing change. Endoc: Denies weight loss. Resp: Denies dyspnoea, wheezing. Cardiac: Denies angina, palpitations. GI: Denies nausea, vomiting. Haem: Denies bleeding. : Denies incontinence. MSK: Denies arthralgias, joint oedema. Derm: Denies rash, hair loss. Neuro: Denies ataxia, tremor. Also see HPI for elements of ROS documented therein and for details of positive findings, which shall supersede the foregoing. EXAM GENERAL EXAMINATION alert oriented well developed, well nourished. HEAD: normocephalic atraumatic. EYES: sclera anicteric. EARS: no obvious hearing deficit. NECK/THYROID: neck supple no cervical lymphadenopathy no thyromegaly. LYMPH NODES: no axillary, supraclavicular or inguinal adenopathy. SKIN: warm and dry. HEART: regular rate and rhythm. LUNGS: clear to auscultation bilaterally. CHEST:axillary nodes grossly normal. BREASTS:no masses palpable bilaterally, normal nipples bilaterally - everted -finely cystic - dense - well supported- axilla negative. ABDOMEN: soft, nontender, nondistended, no masses palpable. BACK: no costovertebral angle tenderness, no obvious scoliosis/kyphosis. FEMALE GENITOURINARY:barrel cap setter in room - good hormone - cuff well supported - no studding or induration - side castro negative - adnex negative RECTAL:normal tone , no masses palpable , only small external hemorrhoids. EXTREMITIES no edema. NEUROLOGIC: alert and oriented. PSYCH: cooperative with exam. ICD-10-CM 1. Encounter for gynecological examination without abnormal finding Z01.419 Pelvic and breast exam completed. Findings of today's exam discussed with the patient. Continue MSBE. Ca/Vit D recommendations reviewed with the patient. The patient is to contact the office with any changes to her gynecological condition or any changes with breast or bleeding. The patient is to return in 1 year or as needed. Discussed internal ring discomfort. 2. Encounter for Papanicolaou smear of vagina Z12.72 IGP,rfxAptima HPV all,16/18,45 Thinprep collected. Will notify patient if results are abnormal. 3. Breast cancer screening by mammogram Z12.31 Bilateral screening mammogram with tomosynthesis Screening mammogram ordered. Patient to call and schedule. 4. Postmenopausal HRT (hormone replacement therapy) Z79.890 Tolerating well, will call for refills. Recently , she bought a new house in [place]. Entered by Germaine Stiles MA acting as scribe for Dr. Nasim Gifford. Signature Germaine Stiles MA Date 07/08/24 . Time 11:06 AM . The documentation recorded by the scribe accurately reflects the service(s) I personally performed and the decisions I made. Signature Jayde Gifford D.O. Date 07/08/24 Time 5:00PM. documented in this encounter [facility] 07-12-2023 Evaluation note Encounter Date Diagnosis Assessment Notes Jun, Dysuria (ICD-10 - R30.0) [employer] Other 08-01-2023 Evaluation note* Encounter Date Diagnosis Assessment Notes Treatment Notes Treatment Clinical Notes Apr, Wellness examination (ICD-10 - Z00.00) Healthy diet and exercise. Reviewed age-appropriate preventive testing recommended. Apr, Acute right hip pain (ICD-10 - M25.551) ROM exercises, heat/ice and Tylenol. Initiate NSAIDs and muscle relaxant. XR right hip. PT if no improvement Apr, Acute right-sided low back pain with right-sided sciatica (ICD-10 - M54.41) The patient is instructed to avoid bending, twisting or lifting. They are to use intermittent heat and ice as needed. They may schedule a massage or gentle manipulation. They may safely use Tylenol as needed. XR lumbar spine PT if no improvement Apr, Overweight (ICD-10 - E66.3) This patient has been instructed on a low-fat, high-fiber diet. They are instructed to reduce calories, portion sizes and snacks. It is recommended that they exercise for 30 minutes, 3-5 times weekly. Apr, Screening mammogram for breast cancer (ICD-10 - Z12.31) Completed w/ 6mo f/u scheduled Apr, Screening for colon cancer (ICD-10 - Z12.11) Completed w/o abnormalities. [facility] Other 07-10-2023 Evaluation note* Encounter Date Diagnosis Assessment Notes Treatment Notes Treatment Clinical Notes Mar, Acute non-recurrent maxillary sinusitis (ICD-10 - J01.00) Instructed to use Robitussin or Mucinex for cough, saline or Flonase NS for congestion, Tylenol for pain and fever. Mar, Dysfunction of both eustachian tubes (ICD-10 - H69.93) Right ear > left. Sudafed, Flonase and Valsalva can be started. [employer] [facility] Other 03-23-2023 Hospital Discharge instructions* Discharge Instructions* Sharda Marlow RN - 12/14/2022 11:04 AM EDT Images from the original note were not included. Patient Discharge Instructions Discharge Date: 12/14/2022 Discharged To: Home Medications: Take tylenol 1000mg every 8 hours as needed. Take oxycodone as prescribed. Take least amount possible. Do not drive while taking opioids. Take the antibiotics cipro and flagyl as prescribed for 5 days Take colace to prevent constipation. Also take over the counter miralax daily to prevent constipation. DIET: Drink clear liquids only for 24 hours after surgery. Water, juices, jello, and broth is ok. After 24 hours, ok to resume your regular diet. BATHING: May shower in 24 hours, leave Dermabond on, no creams/lotions/ointments over Dermabond DRIVING: No driving for 24 hours or while taking narcotics WALKING: Yes STAIRS: Yes LIFTING: No pushing, pulling, lifting more than 10 lbs for 6 weeks DIET: General SPECIAL INSTRUCTIONS: May use ice pack for pain/swelling May use Motrin or Aleve for breakthrough pain May take Milk of Magnesia as needed for constipation No alcoholic beverages, no driving or operating machinery, no making important decisions for 24 hours. You may have a normal diet but should eat lightly day of surgery. Drink plenty of fluids. Urinate within 8 hours after surgery, if unable to urinate call your doctor Call your doctor for the following: Chills Temperature greater than 101 Pain that is not tolerable despite taking pain medicine as ordered There is increased swelling, redness or warmth at surgical site There is increased drainage or bleeding from surgical site Do not remove surgical dressing unless instructed to do so by your surgeon documented in this encounterEDITH [facility]ITAL[facility]and Phone: 1(580) 456-608602-21-2023 Hospital Discharge instructions* Discharge Instructions* Caterina Wilde DO - 11/14/2022 10:28 AM EST Surgery office will call to schedule appendectomy. * Discharge Instr - Diet* Irma Lr RN - 11/14/2022 10:35 AM EST Good nutrition is important when healing from an illness, injury, or surgery. Follow any nutrition recommendations given to you during your hospital stay. If you were given an oral nutrition supplement while in the hospital, continue to take this supplement at home. You can take it with meals, in-between meals, and/or before bedtime. These supplements can be purchased at most local grocery stores, pharmacies, and chain Maintenance Assistant-stores. If you have any questions about your diet or nutrition, call the hospital and ask for the dietitian. * Attachments The following attachments cannot be sent through Care Everywhere. * Colonoscopy: Post-op (Iraqi) documented in this encounterEDITH [facility]ITALXand Phone: 1(221) 169-558102-21-2023 History of Present illness Narrative* Carolynn Marie RN - 11/14/2022 8:46 AM EST Urine negative documented in this encounterBON M-[facility] [employer] Work Phone: [phone] 495-783502-15-2023 History of Present illness Narrative* Nataliya Payne RN - 11/08/2022 8:30 AM EST Pre-op Instructions For Out-Patient Endoscopy Surgery Medication Instructions: Please stop herbs and any supplements now (includes vitamins and minerals). Please contact your surgeon and prescribing physician for pre-op instructions for any blood thinners. If you have inhalers/aerosol treatments at home, please use them the morning of your surgery and bring the inhalers with you to the hospital. Please take the following medications the morning of your surgery with a sip of water: None. Surgery Instructions: After midnight before surgery: Do not eat or drink anything, including water, mints, gum, and hard candy. You may brush your teeth without swallowing. No smoking, chewing tobacco, or street drugs. Please shower or bathe before surgery. Please do not wear any cologne, lotion, powder, jewelry, piercings, perfume, makeup, nail faroese, hair accessories, or hair spray on the day of surgery. Wear loose comfortable clothing. Leave your valuables at home. Bring a storage case for any glasses/contacts. An adult who is responsible for you MUST drive you home and should be with you for the first 24 hours after surgery. The Day of Surgery: Arrive at [facility] Surgery Entrance at the time directed by your surgeon and check in at the desk. If you have a living will or healthcare power of prosecuting attorney, please bring a copy. You will be taken to the pre-op holding area where you will be prepared for surgery. A physical assessment will be performed by a nurse practitioner or loader malt house. Your IV will be started and you will meet your anesthesiologist. When you go to surgery, your family will be directed to the surgical waiting room, where the doctorshould speak with them after your surgery. After surgery, you will be taken to the recovery room then when you are awake and stable you will go to the short stay unit for preparation to be discharged. Instructions read to Johana and understanding verbalized. documented in this encounterBON [facility] [employer] Work Phone: 1(291) 641-930802-01-2023 History general Narrative - Reported* Type Description Date Surgical History Colonoscopy 10/2022 Surgical History Appendectomy 11/2022 [employer] [facility] Other 02-01-2023 History general Narrative - Reported* Type Description Date Medical History Hypoactive sexual desire disorde r Medical History Fat necrosis of breast Surgical History Colonoscopy 10/2022 Surgical History Appendectomy 11/2022 Hospitalization History SEE SURGICAL HX [facility] Other 02-01-2023 History general Narrative - Reported* Type Description Date Medical History Hypoactive sexual desire disorde r Medical History Fat necrosis of breast Surgical History Colonoscopy 10/2022 Surgical History Appendectomy 11/2022 Surgical History AMAN/BSO 04/2023 Hospitalization History SEE SURGICAL HX [facility] Other 01-09-2023 History of Present illness Narrative* Chacha Gomes RN - 10/02/2022 2:58 PM EST Patient given discharge paperwork and all questions answered. Patient discharged with all of her belongings. * Lo Nicole - 10/02/2022 2:54 PM EST CLINICAL PHARMACY NOTE: MEDS TO BEDS Total # of Prescriptions Filled: 2 The following medications were delivered to the patient: CIPRO 500 FLAGYL 500 Additional Documentation: * Carlie Barrow - 10/02/2022 11:13 AM EST [facility] - [facility] [place] Shift date: 10/02/2022 Shift day: Sunday Shift # 1 Room # 0250/0250-01 Name: Johana Srivastava Muslim: [employer] Place of restorationist: Referral: Routine Visit, Communion visit Admit Date & Time: 09/24/2022 11:20 PM Assessment: Johana Srivastava is a 46 y.o. female in the hospital because of a ruptured appendix, per patient. Upon entering the room field underwriter observes patient sitting up in bed, awake and alert. Pt spoke of her health issue and said she is feeling better. Intervention: Meter Supervisor introduced self and title as dental assisting instructor Meter Supervisor offered space for patient to express feelings, needs, and concerns and provided a ministry presence. Pre Press Manager provided prayer and Communion. Outcome: Patient expressed gratitude for visit. Plan: Chaplains will remain available to offer spiritual and emotional support as needed. . Spiritual Care Department [facility] [phone] 10/02/22 1112 Encounter Summary Service Provided For: Patient Referral/Consult From: Johnny Last Encounter 10/02/22 Complexity of Encounter Low Begin Time 1037 End Time 1043 Total Time Calculated 6 min Encounter Type Initial Screen/Assessment Rituals, Rites and Sacraments Type Latter Day Communion Assessment/Intervention/Outcome Assessment Calm;Coping Intervention Active listening;Explored/Affirmed feelings, thoughts, concerns;Prayer (assurance of)/Nyack Outcome Engaged in conversation;Expressed feelings, needs, and concerns;Expressed Gratitude;Receptive * Maia Davis RD - 10/02/2022 10:02 AM EST Comprehensive Nutrition Assessment Type and Reason for Visit: RD Nutrition Re-Screen/LOS Nutrition Recommendations/Plan: Continue current diet. Decrease ONS to QD Monitor weight, labs and intake. Malnutrition Assessment: Malnutrition Status: No malnutrition (10/02/22 1002) Context: Acute Illness Findings of the 6 clinical characteristics of malnutrition: Energy Intake: No significant decrease in energy intake Weight Loss: No significant weight loss Body Fat Loss: No significant body fat loss Muscle Mass Loss: No significant muscle mass loss Fluid Accumulation: No significant fluid accumulation Market Research Assistant Strength: Not Performed Nutrition Assessment: Patient seen for LOS. Admitted with perforated appendicitis. She reports good intake and good acceptance of ONS. Per EHR, intake is 51-75% of meals. Recommend decrease ONS to QD as intake is good. Ca8.4, glu 121 Nutrition Related Findings: Labs/meds reviewed Wound Type: None Current Nutrition Intake & Therapies: Average Meal Intake: 51-75% Average Supplements Intake: 76-100% ADULT DIET; Regular ADULT ORAL NUTRITION SUPPLEMENT; Dinner; Standard High Calorie/High Protein Oral Supplement Anthropometric Measures: Height: 5' 5 (165.1 cm) [place] Body Weight (IBW): 125 lbs (57 kg) Current Body Weight: 161 lb 6 oz (73.2 kg), 129.1 % IBW. Weight Source: Bed Scale Current BMI (kg/m2): 26.9 BMI Categories: Overweight (BMI 25.0-29.9) Estimated Daily Nutrient Needs: Energy Requirements Based On: Formula Weight Used for Energy Requirements: Current Energy (kcal/day): 1900 kcal/day Weight Used for Protein Requirements: Adjusted Protein (g/day): 75-80 gm/day Method Used for Fluid Requirements: 1 ml/kcal Fluid (ml/day): 1900 mL or per Nutrition Diagnosis: No nutrition diagnosis at this time related to as evidenced by Nutrition Interventions: Food and/or Nutrient Delivery: Continue Current Diet, Modify Oral Nutrition Supplement Nutrition Education/Counseling: No recommendation at this time Coordination of Nutrition Care: Continue to monitor while inpatient Plan of Care discussed with: Patient Goals: Previous Goal Met: Goal(s) Achieved Goals: Meet at least 75% of estimated needs, prior to discharge Nutrition Monitoring and Evaluation: Behavioral-Environmental Outcomes: None Identified Food/Nutrient Intake Outcomes: Food and Nutrient Intake, Supplement Intake Physical Signs/Symptoms Outcomes: Biochemical Data, GI Status, Skin, Weight Discharge Planning: Too soon to determine Maia Davis RD Contact: [phone] * Jose Miguel Pittman MD - 10/01/2022 6:40 AM EST Images from the original note were not included. PROGRESS NOTE PATIENT NAME: Johana Srivastava DATE: 10/01/2022 HD: # 6 Patient Active Problem List Diagnosis Perforated appendicitis DIAGNOSIS AND PLAN Perforated appendicitis -Continue Cipro and Flagyl until 10/05 -regular diet -Trend WBC, stable 12.3 -if patient continues to improve will consider PO abx in AM -Hopeful d/c home in the next 3-4 days with interval appendectomy Chief Complaint: I'm ok SUBJECTIVE Significantly improved clinical exam, VSS, afebrile, tolerating regular diet, ambulating, having soft stools, urinating, denies CP, SOB OBJECTIVE VITALS: Vitals: 09/30/221999 BP: 126/76 Pulse: 75 Resp: 16 Temp: 98.8 F (37.1 C) SpO2: 97% Physical Exam Constitutional: Appearance: She is obese. HENT: Head: Normocephalic. Mouth/Throat: Mouth: Mucous membranes are moist. Eyes: Extraocular Movements: Extraocular movements intact. Abdominal: Palpations: Abdomen is soft. Comments: Minimal RLQ pain on deep palpation Musculoskeletal: General: Normal range of motion. Skin: General: Skin is warm. Capillary Refill: Capillary refill takes less than 2 seconds. Neurological: General: No focal deficit present. Mental Status: She is alert. LAB: CBC: Recent Labs 09/29/22 0450 09/30/22 0736 10/01/22 0508 WBC 12.9* 12.8* 12.3* HGB 10.1* 11.3* 11.0* HCT 32.0* 35.4* 35.1* MCV 93.6 91.2 92.9 PLT 360 448 472* BMP: Recent Labs 09/29/22 0450 09/30/22 0736 10/01/22 0508 NA 132* 136 137 K 3.5* 4.3 4.2 CL 100 100 102 CO2 23 25 23 BUN 6 7 11 CREATININE 0.57 0.65 0.67 GLUCOSE 122* 103* 121* Attestation signed by Jose Miguel Pittman MD I personally evaluated the patient and directed the medical decision making with Resident/JOVANNY afterthe physical/radiologic exam and laboratory values were reviewed and confirmed. Feeling better, tolerating diet. Labs stable. Jose Miguel Pittman MD * Jose Miguel Pittman MD - 09/30/2022 8:35 AM EST Images from the original note were not included. PROGRESS NOTE PATIENT NAME: Johana Srivastava DATE: 09/30/2022 HD: # 5 Patient Active Problem List Diagnosis Perforated appendicitis DIAGNOSIS AND PLAN Perforated appendicitis -Continue Cipro and Flagyl until 10/05 -Full liquid diet -WBC -At this point, no acute surgical intervention is indicated. As long as WBC is trending down with current antibiotics, and clinical symptoms is not worsening. Current plan is to manage the perforatedappendicitis nonoperatively. Chief Complaint: I'm ok SUBJECTIVE Subjectively improved, CT performed w/ large RLQ collection, denies CP, SOB. Patient tolerated the full liquid diet yesterday without nausea or vomiting. Mild abdominal pain on the right lower quadrant, pain is controlled with current pain regiment. OBJECTIVE VITALS: Vitals: 09/30/22 0744 BP: 128/88 Pulse: Resp: 16 Temp: 98.3 F (36.8 C) SpO2: Physical Exam Constitutional: Appearance: She is obese. HENT: Head: Normocephalic. Mouth/Throat: Mouth: Mucous membranes are moist. Eyes: Extraocular Movements: Extraocular movements intact. Abdominal: Palpations: Abdomen is soft. Comments: Mild rlq pain with palpation. No peritoneal signs Musculoskeletal: General: Normal range of motion. Skin: General: Skin is warm. Capillary Refill: Capillary refill takes less than 2 seconds. Neurological: General: No focal deficit present. Mental Status: She is alert. LAB: CBC: Recent Labs 09/28/22 0605 09/29/22 0450 09/30/22 0736 WBC 13.4* 12.9* PENDING HGB 9.5* 10.1* 11.3* HCT 29.0* 32.0* 35.4* MCV 90.9 93.6 91.2 PLT 310 360 PENDING BMP: Recent Labs 09/28/22 0605 09/29/22 0450 09/30/22 0736 NA 138 132* 136 K 3.7 3.5* 4.3 CL 103 100 100 CO2 25 23 25 BUN 5* 6 7 CREATININE 0.56 0.57 0.65 GLUCOSE 105* 122* 103* Attestation signed by Jose Miguel Pittman MD I personally evaluated the patient and directed the medical decision making with Resident/JOVANNY afterthe physical/radiologic exam and laboratory values were reviewed and confirmed. Advance diet. Jose Miguel Pittman MD * Jose Miguel Pittman MD - 09/29/2022 8:32 AM EST Images from the original note were not included. PROGRESS NOTE PATIENT NAME: Johana Srivastava DATE: 09/29/2022 HD: # 4 Patient Active Problem List Diagnosis Perforated appendicitis DIAGNOSIS AND PLAN Perforated appendicitis -Continue Cipro and Flagyl until 10/05 -Full liquid diet -At this point, no acute surgical intervention is indicated. As long as WBC is trending down with current antibiotics, and clinical symptoms is not worsening. Current plan is to manage the perforatedappendicitis nonoperatively. Chief Complaint: I'm ok SUBJECTIVE Subjectively improved, CT performed w/ large RLQ collection, denies CP, SOB. Patient tolerated the clear liquid diet yesterday without nausea or vomiting. Abdominal pain has improved compared to yesterday. OBJECTIVE VITALS: Vitals: 09/28/22 2330 BP: 136/89 Pulse: 87 Resp: 18 Temp: 98.6 F (37 C) SpO2: 97% Physical Exam Constitutional: Appearance: She is obese. HENT: Head: Normocephalic. Mouth/Throat: Mouth: Mucous membranes are moist. Eyes: Extraocular Movements: Extraocular movements intact. Abdominal: Palpations: Abdomen is soft. Comments: Mild rlq pain with palpation. No peritoneal signs Musculoskeletal: General: Normal range of motion. Skin: General: Skin is warm. Capillary Refill: Capillary refill takes less than 2 seconds. Neurological: General: No focal deficit present. Mental Status: She is alert. LAB: CBC: Recent Labs 09/27/22 0701 09/28/22 0605 09/29/22 0450 WBC 13.0* 13.4* 12.9* HGB 9.6* 9.5* 10.1* HCT 29.4* 29.0* 32.0* MCV 89.4 90.9 93.6 PLT 288 310 360 BMP: Recent Labs 09/27/22 0701 09/28/22 0605 09/29/22 0450 NA 136 138 132* K 3.2* 3.7 3.5* CL 103 103 100 CO2 25 25 23 BUN 6 5* 6 CREATININE 0.57 0.56 0.57 GLUCOSE 131* 105* 122* Attestation signed by Jose Miguel Pittman MD I personally evaluated the patient and directed the medical decision making with Resident/JOVANNY afterthe physical/radiologic exam and laboratory values were reviewed and confirmed. Continues to feel better. Monitor WBC. Aware of potential need for surgery. Jose Miguel Pittman MD * Jayashree Chappell RN - 09/28/2022 11:06 PM EST Report called to Jak Campbell RN. Patient transported to room 250 via wheelchair with all belongings. * Vipin Hopkins MD - 09/28/2022 8:26 AM EST Asked by Dr. Ordonez to review Ms. Srivastava' new A/P CT for possible drainage. The RLQ air-containing fluid collection adjacent to the enlarged appendix and thickened loops of ileum and cecum has enlarged. Unfortunately, there is no safe window to access the collection between the bowel and mesenteric vessels. Continued Abx Tx/conservative management recommended at this time. * Js Ordonez DO - 09/28/2022 7:58 AM EST Images from the original note were not included. PROGRESS NOTE PATIENT NAME: Johana Srivastava DATE: 09/28/2022 HD: # 3 Patient Active Problem List Diagnosis Perforated appendicitis DIAGNOSIS AND PLAN Perforated appendicitis NPO Cont abx and IVF IR to re-eval for drain Chief Complaint: I'm ok SUBJECTIVE Subjectively improved, CT performed w/ large RLQ collection, denies CP, SOB, current N. Did have emesis overnight after PO contrast OBJECTIVE VITALS: Vitals: 09/28/22 0049 BP: 128/84 Pulse: (!) 103 Resp: 19 Temp: 99.5 F (37.5 C) SpO2: 93% Physical Exam Constitutional: Appearance: She is obese. HENT: Head: Normocephalic. Mouth/Throat: Mouth: Mucous membranes are moist. Eyes: Extraocular Movements: Extraocular movements intact. Abdominal: Palpations: Abdomen is soft. Comments: Mild rlq pain with palpation. No peritoneal signs Musculoskeletal: General: Normal range of motion. Skin: General: Skin is warm. Capillary Refill: Capillary refill takes less than 2 seconds. Neurological: General: No focal deficit present. Mental Status: She is alert. LAB: CBC: Recent Labs 09/26/22 0542 09/27/22 0701 09/28/22 0605 WBC 13.6* 13.0* 13.4* HGB 10.5* 9.6* 9.5* HCT 32.0* 29.4* 29.0* MCV 90.1 89.4 90.9 PLT 263 288 310 BMP: Recent Labs 09/26/22 0542 09/27/22 0701 NA 137 136 K 3.3* 3.2* CL 103 103 CO2 23 25 BUN 13 6 CREATININE 0.58 0.57 GLUCOSE 111* 131* Associated attestation - Katarina Ash MD - 09/28/2022 4:36 PM EST I personally evaluated the patient and directed the medical decision making with Resident/JOVANNY afterthe physical/radiologic exam and laboratory values were reviewed and confirmed. IR unable to drain collection. Will continue IV abx. Resume diet as tolerated. Will follow wbc. Katarina Ash MD * Jayashree Chappell RN - 09/27/2022 11:56 PM EST 2355 Patient was given oral contrast for CT abd/pelvis. 0025 Patient drank all of the oral contrast, but vomited most of the liquid. Notified CT techs and Dr. Yen, resident. Continue Ct scan around 0115. * Cristina Rutledge RN - 09/27/2022 1:17 PM EST Patient given incentive spirometer and educated. * GOOD Jaffe CNP - 09/27/2022 6:46 AM EST Images from the original note were not included. PROGRESS NOTE PATIENT NAME: Johana Srivastava DATE: 09/27/2022 HD: # 2 Patient Active Problem List Diagnosis Perforated appendicitis DIAGNOSIS AND PLAN Perforated appendicitis Pain Hx hysterectomy and c section Significant Inflammatory changes on CT IV cipro flagyl with improved leukocytosis Will need staged appendectomy as OP Repeat abd ct Continue FLD-> walk in hallway Chief Complaint: perf appy SUBJECTIVE Feels better OBJECTIVE VITALS: Vitals: 09/27/22 0355 BP: 123/85 Pulse: 94 Resp: 19 Temp: 98.8 F (37.1 C) SpO2: 96% Physical Exam Constitutional: Appearance: She is obese. HENT: Head: Normocephalic. Mouth/Throat: Mouth: Mucous membranes are moist. Eyes: Extraocular Movements: Extraocular movements intact. Abdominal: Palpations: Abdomen is soft. Comments: Mild rlq pain with palpation. No peritoneal signs Musculoskeletal: General: Normal range of motion. Skin: General: Skin is warm. Capillary Refill: Capillary refill takes less than 2 seconds. Neurological: General: No focal deficit present. Mental Status: She is alert. LAB: CBC: Recent Labs 09/24/22 2327 09/26/22 0542 WBC 20.8* 13.6* HGB 11.8* 10.5* HCT 36.0* 32.0* MCV 89.3 90.1 PLT 249 263 BMP: Recent Labs 09/24/22232609/25/22 0543 09/26/22 0542 NA 128* 126* 137 K 3.7 3.6* 3.3* CL 95* 97* 103 CO2 BUN 21* 17 13 CREATININE 0.73 0.65 0.58 GLUCOSE 96 100* 111* * GOOD Jaffe CNP - 09/26/2022 7:26 AM EST Images from the original note were not included. PROGRESS NOTE PATIENT NAME: Johana Srivastava DATE: 09/26/2022 HD: # 1 Patient Active Problem List Diagnosis Perforated appendicitis DIAGNOSIS AND PLAN Perforated appendicitis Pain Abd abscess Hx hysterectomy and c section Inflammatory changes IV cipro flagyl with improved leukocytosis Will need staged appendectomy as OP Repeat abd ct Advance diet as tolerated Pain control Increase activity Chief Complaint: perf appy SUBJECTIVE Feels somewhat better OBJECTIVE VITALS: Vitals: 09/26/22 0632 BP: Pulse: 98 Resp: Temp: SpO2: (!) 88% Physical Exam Constitutional: Appearance: She is obese. HENT: Head: Normocephalic. Mouth/Throat: Mouth: Mucous membranes are moist. Eyes: Extraocular Movements: Extraocular movements intact. Abdominal: Palpations: Abdomen is soft. Comments: Mild rlq pain with palpation. No peritoneal signs Musculoskeletal: General: Normal range of motion. Skin: General: Skin is warm. Capillary Refill: Capillary refill takes less than 2 seconds. Neurological: General: No focal deficit present. Mental Status: She is alert. LAB: CBC: Recent Labs 09/24/22232609/26/22 0542 WBC 20.8* 13.6* HGB 11.8* 10.5* HCT 36.0* 32.0* MCV 89.3 90.1 PLT 249 263 BMP: Recent Labs 09/24/22232609/25/22 0543 09/26/22 0542 NA 128* 126* 137 K 3.7 3.6* 3.3* CL 95* 97* 103 CO2 24 23 23 BUN 21* 17 13 CREATININE 0.73 0.65 0.58 GLUCOSE 96 100* 111* GOOD JAFFE CNP 09/26/2022, 7:27 AM * Garth Keating - 09/25/2022 8:40 PM EST SPIRITUAL C[facility] [place] [facility] Shift date: 09/25/22 Shift day: Sunday Shift # 2 Room # Name: Johana Srivastava Muslim: [employer] Place of restorationist: Referral: Routine Visit Admit Date & Time: 09/24/2022 11:20 PM Assessment: Johana Srivastava is a 46 y.o. female Intervention: Meter Supervisor introduced self and title as dental assisting instructor. Patient appeared receptive to dental assisting instructor presence and engaged in conversation about her health and its impact. Meter Supervisor offered space for patient to express feelings, needs, and concerns and provided a ministry presence. Patient has strong support from spouse and children. Patient did not appear anxious about her hospital stay. Patient appeared more anxious about being away from her family. Pre Press Manager validated patient feelings/emotions. Patient stated she is L[employer]. Outcome: Patient expressed gratitude for dental assisting instructor visit while coping with being away from her family Plan: Chaplains will remain available to offer spiritual and emotional support as needed. . Spiritual Care Department [facility] [phone] [facility] Work Phone: [phone]) 278-726901-04-2023 Hospital Discharge instructions* Discharge Instructions* Keon Mclaughlin RN - 09/27/2022 3:40 PM EST Discharge Instructions for General Surgery What to do after you leave the hospital: General questions or concerns may be called to the trauma nurse line at [phone] and please leave a message. Your doctor will want to closely monitor you. Be sure to go to all of your appointments. * Attachments The following attachments cannot be sent through Care Everywhere. * Appendicitis (Iraqi) * Appendicitis: Treated With Antibiotics (Iraqi) [facility] Work Phone: [email or web address] note* Diagnosis Perforated appendicitis- Primary Acute appendicitis with generalized peritonitis Appendicitis, unspecified appendicitis type documented in this encounter [facility] Work Phone: [email or web address] note* Diagnosis Colon cancer screening Special screening for malignant neoplasms, colon documented in this encounter [facility] Work Phone: [email or web address] noteNo assessment information available [facility] Work Phone: Evaluation note* Diagnosis Postoperative pain- Primary Other acute postoperative pain Perforated appendix Acute appendicitis with generalized peritonitis documented in this encounter [facility] Work Phone: evaluation noteNo InformationNoell[facility] Other Evaluation note* Diagnosis Encounter for gynecological examination without abnormal finding Encounter for Papanicolaou smear of vagina Breast cancer screening by mammogram Postmenopausal HRT (hormone replacement therapy) Need for prophylactic hormone replacement therapy (postmenopausal) [facility] Diagnosis Onset Date Resolution Status Admit Date GERD (gastroesophageal reflux disease) acute May 28, 025 9:21am Overweight acute May 28, 2025 9:21am Wellness examination noneactive Sept emb2024 9:21am [facility] Work Phone: Hospital Discharge instructions Additional Instructions DISCHARGE INSTRUCTIONS FOR HYSTERECTOMY (TVH, LAVH, TLH) -During your time at home until your first office appointment we recommend that you assume the same type of activities that you have been doing while in the hospital. You may ride in the car unless otherwise specifically told not to. Unless specifically otherwise stated, generally you may drive the car when you feel strong enough to make emergency manuevers as needed. -You may walk up and down stairs. At first take one step at a time -- one step - stop, one step - stop, one step - stop. -You may do light housework, such as dusting, dishes, and cooking. -From your first office visit until the six week postoperative examination we recommend that you do not do any heavy lifting or straining, that you do not do any vacuuming, mopping, or sweeping. -We advise that you do not lift any heavy grocery bags from the cart to the car or from the car home. -We recommend that you do not do any yard work such as shoveling of snow, raking of leaves, cutting grass or gardening. -We recommend that you do not make beds or lift mattresses to change fitted sheets. -Light bleeding is normal for the first 4 weeks (i.e. changing panty liner 3 - 4 times a day.) Call me or go to the Emergency Room for heavy bleeding (soaking a maxipad every hour for 4 hours.) -Call the office or go to the Emergency Room if unable to reach me for fever, chills, worsening pain, persistent nausea/vomiting. -Call the office or go to the Emergency Room for shortness of breath, pain in your calfs or unusual swelling in your legs. -Showers are allowed until the vaginal drainage stops, then tub baths are generally acceptable unless otherwise specifically denied. -You will be advised at your first office visit when you may resume intercourse. This will be dependent upon the type of surgery performed. -We recommend that you use home remedies such as aspirin, Tylenol, Motrin for pain, Milk of Magnesia for laxative. If these preparations do not take care of your problem we want to be called and notified of your distress. -Please get prescriptions filled upon leaving the hospital and follow directions as outlined. Please note the refill limitations on the prescription. -If you have any specific questions not covered by these instructions please feel free to contact myself or one of the nurses who will answer your questions with my recommendations. -These instructions are intended to be a guideline for your postoperative care and recovery and are by no means intended to be totally complete. FOLLOW UP -[Please call the office at ([phone]) to make follow appointment before leaving the hospital]. -[2 Weeks] [ ][facility] Work Phone: Reason for referral (narrative)No reason for referral information availableMercy Health St. [facility] Work Phone: Advance Directives Latest Code Status on File Code Status Date Activated Date Inactivated Comments Full Code 09/25/2022 2:33 AM Latest Code Status on File Code Status Date Activated Date Inactivated Comments Full Code 09/25/2022 2:33 AM 10/02/2022 5:01 PM Latest Code Status on File Code Status Date Activated Date Inactivated Comments Full Code 09/25/2022 2:33 AM 10/02/2022 5:01 PM Advance Directive Response Recorded Date/ Time Advance Directives No October 26, 2022 9:49am Advance Directive Response Recorded Date/ Time Advance Directives No October 26, 2022 10:49am Summary Purpose Family History Relationship Condition Age at Onset Recorded Date/T alanna father Hypertension Unknown Not Specified Hypertension Unknown Relationship Condition Age at Onset Recorded Date/T alanna father Hypertension Unknown mother Hypertension Unknown Chief Complaint and Reason for Visit Chief Complaint n63.0 Chief Complaint persistent pelvic pa in, bilateral ovarian cyst Chief Complaint persistent pelvic pa in, bilateral ovarian cyst persistent pelvic pain, bilateral ovarian cyst. Chief Complaint Admit Date Wellness May 28, 2025 9:21am Reason for Visit Admit Date GERD (gastroesophageal reflux disease) S eptember 2024 9:21am Overweight May 28, 2025 9:21am Wellness examination May 28, 2025 9:21am Additional Source Comments Reason for Visit (unrecogniz ed section and content) Reason Comments Abdominal Pain Specialty Diagnoses / Procedures Referred By Milad plascencia Referred To Contact Diagnoses Perforated appendicitis Appendicitis, unspecified appendicitis type John Cerna MD [address] [address], [address] [place] [address] [facility] [address] [place] [address] Referral ID Status Reason Start Date Expiration Date Visits Re quested Visits Authorized [id number] 1 1 Specialty Diagnoses / Procedures Referred By Milad plascencia Referred To Contact Diagnoses Colon cancer screening COLON CA SCREENING Procedures NV COLON CA SCRN NOT HI RSK IND NV COLONOSCOPY FLX DX W/COLLJ SPEC WHEN PFRMD NV COLONOSCOPY W/BIOPSY SINGLE/MULTIPLE NV COLSC FLX W/RMVL OF TUMOR POLYP LESION SNARE TQ COLORECTAL CANCER SCREENING, NOT HIGH RISK Caterina Wilde, DO [address] [place] [address] [facility] [address] [place] [address] Referral ID Status Reason Start Date Expiration Date Visits Re quested Visits Authorized [id number] 1 1 Specialty Diagnoses / Procedures Referred By Contac t Referred To Contact Diagnoses Perforated appendix PERFORATED APPENDIX Procedures NV LAPAROSCOPIC APPENDECTOMY XI ROBOTIC LAPAROSCOPIC APPENDECTOMY, POSSIBLE OPEN Katarina Ash MD [address] [facility] [address] [place] [address] [facility] [address] [place] [address] Referral ID Status Reason Start Date Expiration Date Visits Re quested Visits Authorized [id number] 1 1 Reason Comments Gynecologic Exam LMP: AMAN BSO RT: Estradiol 1 MG - satisfied - will call for refills. Last pap 09-13-22 neg.Last mammogram 08-31-23 [facility]. [place] [facility] [place]. Denies breast, urinary, or bowel concerns. Ordered Prescriptions (unrec ognized section and content) Prescription Sig Dispensed Refills Start Date End Da te metroNIDAZOLE (FLAGYL) 500 MG tablet Take 1 tablet by mouth 3 times daily for 3 days 9 tablet 0 10/02/2022 10/05/2022 ciprofloxacin (CIPRO) 500 MG tablet Take 1 tablet by mouth 2 times daily for 3 days 6 tablet 0 10/02/2022 10/05/2022 Prescription Sig Dispensed Refills Start Date End Da te metroNIDAZOLE (FLAGYL) 500 MG tablet Take 1 tablet by mouth 3 times daily for 5 days 15 tablet 0 12/14/2022 12/19/2022 ciprofloxacin (CIPRO) 500 MG tablet Take 1 tablet by mouth 2 times daily for 5 days 10 tablet 0 12/14/2022 12/19/2022 docusate sodium (COLACE) 100 MG capsule Take 1 capsule by mouth daily 28 capsule 0 12/14/2022 ondansetron (ZOFRAN) 4 MG tablet Take 1 tablet by mouth every 8 hours as needed for Nausea or Vomiting 28 tablet 0 12/14/2022 oxyCODONE (ROXICODONE) 5 MG immediate release tabletIndications:Posto perative pain Take 1 tablet by mouth every 6 hours as needed for Pain for up to 7 days. Intended supply: 5 days. Take lowest dose possible to manage pain Max Daily Amount: 20 mg 28 tablet 0 12/14/2022 12/21/2022 Scheduled Active and Recently Administ ered Medications (unrecognized section and content) Medication Order 09/30/2022 10/01/2022 10/02/2022 ciprofloxacin (CIPRO) IVPB 400 mg 400 mg, IntraVENous, EVERY 12 HOURS, 12 doses, First dose (after last modification) on Sun09/29/22 at 1500, Last dose on Sun10/05/22 at 0300, Antimicrobial Indications: Surgical Prophylaxis 0244 (New Bag - Provider: Alexandra Rios RN)0344 (Stopped - Provider: Alexandra Rios RN)1425 (New Bag - Provider: Suma Toussaint RN)1519 (Stopped - Provider: Suma Toussaint RN) 0355 (New Bag - Provider: Cindy Catalan RN)0506 (Stopped - Provider: Cindy Catalan RN)1450 (New Bag - Provider: Chacha Gomes RN)1635 (Stopped - Provider: Chacha Gomes, DUNG) 0329 (New Bag - Provider: Cindy Catalan RN)0429 (Stopped - Provider: Cindy Catalan RN)1500 (Due) enoxaparin Sodium (LOVENOX) injection 30 mg 30 mg, SubCUTAneous, 2 TIMES DAILY, First dose on Sun09/27/22 at 0900, Until Discontinued, Indication of Use: Prophylaxis-DVT/PE 0839 (Given - Provider: Suma Toussaint RN)2010 (Given - Provider: Cindy Catalan RN) 0811 (Not Given - Provider: Chacha Gomes RN - Reason: Patient/family refused)195 (Given - Provider: Cindy Catalan RN) 0746 (Given - Provider: Chacha Gomes RN)2100 (Due) metronidazole (FLAGYL) 500 mg in 0.9% NaCl 100 mL IVPB premix 500 mg, IntraVENous, EVERY 8 HOURS, 18 doses, First dose (after last modification) on Sun09/29/22 at 1500, Last dose on Sun10/05/22 at 0700, Antimicrobial Indications: Surgical Prophylaxis 0020 (Stopped - Provider: Alexandra Rios RN)0641 (New Bag - Provider: Alexandra Rios RN)0733 (Stopped - Provider: Suma Toussaint RN)1526 (New Bag - Provider: Suma Toussaint RN)1627 (Stopped - Provider: Suma Toussaint RN)2325 (New Bag - Provider: Cindy Catalan RN) 0030 (Stopped - Provider: Cindy Catalan RN)0814 (New Bag - Provider: Chacha Gomes RN)0952 (Stopped - Provider: Chacha Gomes RN)1636 (New Bag - Provider: Chacha Gomes RN)1805 (Stopped - Provider: Chacha Gomes RN)2258 (New Bag - Provider: Cindy Catalan RN) 0000 (Stopped - Provider: Cindy Catalan RN)0737 (New Bag - Provider: Cindy Catalan RN)0840 (Stopped - Provider: Chacha Gomes RN)1500 (Due)2300 (Due) PRN Medication Order 09/30/2022 10/01/2022 10/02/2022 acetaminophen (TYLENOL) tablet 650 mg 650 mg, Oral, EVERY 8 HOURS PRN, Starting on Sun09/27/22 at 1127, Until Discontinued, Pain Mild (1-3), Maximum dose of acetaminophen is 4000 mg from all sources in 24 hours. Alternate with ibuprofen 0839 (Given - Provider: Suma Toussaint RN)2009 (Given - Provider: Cindy Catalan RN) 0816 (Given - Provider: Chacha Gomes RN)1808 (Given - Provider: Chacha Gomes RN) 0838 (Given - Provider: Chacha Gomes RN) ibuprofen (ADVIL;MOTRIN) tablet 400 mg 400 mg, Oral, EVERY 4 HOURS PRN, Starting on Sun09/26/22 at 0722, Until Discontinued, Pain Mild (1-3), Do not crush or chew. Alternate with acetaminophen 1403 (Given - Provider: Tracy Gamez RN) 0357 (Given - Provider: Cindy Catalan, DUNG)1047 (Given - Provider: Chacha Gomes, DUNG)1458 (Given - Provider: Chacha Gomes, DUNG)1954 (Given - Provider: Cindy Catalan, DUNG) ondansetron (ZOFRAN) injection 4 mg 4 mg, IntraVENous, EVERY 6 HOURS PRN, Starting on Sun09/27/22 at 2014, Until Discontinued, Nausea, Vomiting sodium chloride flush 0.9 % injection 5-40 mL 5-40 mL, IntraVENous, PRN, Starting on Sun09/25/22 at 0233, Until Discontinued, Line Care, After every IV line use, For Line Patency: Peripheral IV = 5 mL; Midline or Central Line = 10 mL/lumen. If following IV push medication, administer flush at same rate as the IV push. Flush volume is determined by type of infusion therapy being given. For non-viscous solutions use: Peripheral IV = 5 mL Midline or Central Line = 10 mL/lumen For viscous solutions (i.e. blood components, parenteral nutrition, contrast media, or after obtaining blood sample) use: Peripheral IV = 10 mL Midline or Central Line = 20 mL/lumen Scheduled Medication Order 11/12/2022 11/13/2022 11/14/2022 sodium chloride flush 0.9 % injection 5-40 mL 5-40 mL, IntraVENous, EVERY 12 HOURS SCHEDULED (2 times per day), First dose on Sun11/14/22 at 0900, Until Discontinued, For Line Patency: Peripheral IV = 5 mL; Midline or Central Line = 10 mL/lumen. If following IV push medication, administer flush at same rate as the IV push. Flush volume is determined by type of infusion therapy being given. For non-viscous solutions use: Peripheral IV = 5 mL Midline or Central Line = 10 mL/lumen For viscous solutions (i.e. blood components, parenteral nutrition, contrast media, or after obtaining blood sample) use: Peripheral IV = 10 mL Midline or Central Line = 20 mL/lumen, Pre-op (day of surgery) 0900 (Due)2100 (Due) Continuous Medication Order 11/12/2022 11/13/2022 11/14/2022 lactated ringers IV soln infusion IntraVENous, at 125 mL/hr, CONTINUOUS, Starting on Sun11/14/22 at 0830, Pre-op (day of surgery) 0842 (New Bag - Prov ider: Carolynn Marie RN)0924 (Paused - Provider: GOOD Reynoso CRNA - Comment: Switch to gravity)0925 (Restarted - Provider: GOOD Reynoso CRNA)1007 (Anesthesia Volume Adjustment - Provider: GOOD Reynoso CRNA)1040 (Stopped - Provider: Irma Lr RN) PRN Medication Order 11/12/2022 11/13/2022 11/14/2022 0.9 % sodium chloride infusion IntraVENous, at 5-250 mL/hr, PRN, if patient receiving piggyback infusions and maintenance fluids are not ordered OR KVO fluids to protect IV site / prevent frequent line interruptions/ long duration, Starting on Sun11/14/22 at 0805, For piggyback infusion, administer at same rate as piggyback for a total of 25 mL. Enter 25 mL into dose field and piggyback rate into rate field of order. If piggyback is infusing at a rate less than 100 mL/hr, enter 25 mL into dose field and 100 mL/hr into rate field of order. For KVO fluids, enter rate of 20 mL/hr or less into rate field of order., Pre-op (day of surgery) lidocaine PF 1 % injection 1 mL (COMPLETED) 1 mL, IntraDERmal, ONCE PRN, 1 dose, Starting on Sun11/14/22 at 0805, Until Sun11/14/22 at 0842, IV start, Pre-op (day of surgery) 0842 (Given - Provid er: Carolynn Marie RN) sodium chloride flush 0.9 % injection 5-40 mL 5-40 mL, IntraVENous, PRN, Starting on Sun11/14/22 at 0805, Until Discontinued, Line Care, After every IV line use, For Line Patency: Peripheral IV = 5 mL; Midline or Central Line = 10 mL/lumen. If following IV push medication, administer flush at same rate as the IV push. Flush volume is determined by type of infusion therapy being given. For non-viscous solutions use: Peripheral IV = 5 mL Midline or Central Line = 10 mL/lumen For viscous solutions (i.e. blood components, parenteral nutrition, contrast media, or after obtaining blood sample) use: Peripheral IV = 10 mL Midline or Central Line = 20 mL/lumen, Pre-op (day of surgery) Scheduled Medication Order 12/12/2022 12/13/2022 12/14/2022 metoclopramide (REGLAN) injection 10 mg (COMPLETED) 10 mg, IntraVENous, ONCE, 1 dose, On Dayanna 12/14/22 at 1600, IV Push: Max 10 mg over 1-2 minutes., PACU only 1550 (Given - Provid er: Mary Anne Dye RN) prochlorperazine (COMPAZINE) injection 10 mg (COMPLETED) 10 mg, IntraVENous, ONCE, 1 dose, On Dayanna 12/14/22 at 1630, If administering IV push, administer at a maximum rate of 5 mg/minute. 1606 (Given - Provid er: Mary Anne Dye RN) sodium chloride flush 0.9 % injection 5-40 mL 5-40 mL, IntraVENous, EVERY 12 HOURS SCHEDULED (2 times per day), First dose on Dayanna 12/14/22 at 2100, Until Discontinued, For Line Patency: Peripheral IV = 5 mL; Midline or Central Line = 10 mL/lumen. If following IV push medication, administer flush at same rate as the IV push. Flush volume is determined by type of infusion therapy being given. For non-viscous solutions use: Peripheral IV = 5 mL Midline or Central Line = 10 mL/lumen For viscous solutions (i.e. blood components, parenteral nutrition, contrast media, or after obtaining blood sample) use: Peripheral IV = 10 mL Midline or Central Line = 20 mL/lumen, PACU only 2100 (Due) Continuous Medication Order 12/12/2022 12/13/2022 12/14/2022 lactated ringers IV soln infusion IntraVENous, at 100 mL/hr, CONTINUOUS, Starting on Dayanna 12/14/22 at 1130 1111 (New Bag - Prov ider: Adrian Christiansen RN)1156 (NoRateChange - Provider: GOOD Koehler [employer])1311 (Paused - Provider: GOOD Koehler CRNA - Comment: Switch to gravity)1312 (New Bag - Provider: GOOD Koehler CRNA)1432 (Anesthesia Volume Adjustment - Provider: GOOD Koehler CRNA)1735 (Stopped - Provider: Sharda Marlow RN) PRN Medication Order 12/12/2022 12/13/2022 12/14/2022 0.9 % sodium chloride infusion IntraVENous, at 5-250 mL/hr, PRN, if patient receiving piggyback infusions and maintenance fluids are not ordered OR KVO fluids to protect IV site / prevent frequent line interruptions/ long duration, Starting on Dayanna 12/14/22 at 1449, For piggyback infusion, administer at same rate as piggyback for a total of 25 mL. Enter 25 mL into dose field and piggyback rate into rate field of order. If piggyback is infusing at a rate less than 100 mL/hr, enter 25 mL into dose field and 100 mL/hr into rate field of order. For KVO fluids, enter rate of 20 mL/hr or less into rate field of order., PACU only bupivacaine (MARCAINE) 0.5 % injection (CANCELED) PRN, Starting on Dayanna 12/14/22 at 1220, Until Dayanna 12/14/22 at 1446, Intra-op 1220 (Given - Provid er: Katarina Ash MD)1439 (Given - Provider: Katarina Ash MD) fentaNYL (SUBLIMAZE) injection 25 mcg 25 mcg, IntraVENous, EVERY 5 MIN PRN, 2 doses, Starting on Dayanna 12/14/22 at 1449, Until Discontinued, Pain Moderate (4-6), For Phase I. If Phase II oral narcotics have been administered in the last 60 minutes, do not administer IV narcotics unless specifically approved by provider., PACU only fentaNYL (SUBLIMAZE) injection 50 mcg 50 mcg, IntraVENous, EVERY 5 MIN PRN, 2 doses, Starting on Dayanna 12/14/22 at 1449, Until Discontinued, Pain Severe (7-10), For Phase I. If Phase II oral narcotics have been administered in the last 60 minutes, do not administer IV narcotics unless specifically approved by provider., PACU only meperidine (DEMEROL) injection 12.5 mg 12.5 mg, IntraVENous, EVERY 5 MIN PRN, 2 doses, Starting on Dayanna 12/14/22 at 1449, Until Discontinued, Shivering, Shivering,, May give every 5 minutes to max of 50mg., PACU only ondansetron (ZOFRAN) injection 4 mg (COMPLETED) 4 mg, IntraVENous, ONCE PRN, 1 dose, Starting on Dayanna 12/14/22 at 1449, Until Sun12/15/22 at 1449, Nausea, PACU only 1524 (Given - Provid er: Mary Anne Dye RN) oxyCODONE (ROXICODONE) immediate release tablet 5 mg (COMPLETED) 5 mg, Oral, ONCE PRN, 1 dose, Starting on Dayanna 12/14/22 at 1712, Until Dayanna 12/14/22 at 1715, Pain Mild (1-3), Pain Moderate (4-6), Pain Severe (7-10), PACU only 1715 (Given - Provid er: Mary Anne Dye RN) oxyCODONE (ROXICODONE) immediate release tablet 5 mg (COMPLETED) 5 mg, Oral, ONCE PRN, 1 dose, Starting on Dayanna 12/14/22 at 1720, Until Sun12/15/22 at 1720, Pain Mild (1-3), Pain Moderate (4-6), Pain Severe (7-10), PACU only 1726 (Given - Provid er: Sharda Marlow RN) sod chloride IRR soln 0.9 % irrigation (CANCELED) CONTINUOUS PRN, Starting on Dayanna 12/14/22 at 1210, Intra-op 1210 (New Bag - Prov ider: Katarina Ash MD - Comment: TO BACK TABLE)1439 (New Bag - Provider: Katarina Ash MD) sodium chloride flush 0.9 % injection 5-40 mL 5-40 mL, IntraVENous, PRN, Starting on Dayanna 12/14/22 at 1449, Until Discontinued, Line Care, After every IV line use, For Line Patency: Peripheral IV = 5 mL; Midline or Central Line = 10 mL/lumen. If following IV push medication, administer flush at same rate as the IV push. Flush volume is determined by type of infusion therapy being given. For non-viscous solutions use: Peripheral IV = 5 mL Midline or Central Line = 10 mL/lumen For viscous solutions (i.e. blood components, parenteral nutrition, contrast media, or after obtaining blood sample) use: Peripheral IV = 10 mL Midline or Central Line = 20 mL/lumen, PACU only Care Teams (unrecognized sec tion and content) Team Status: Active Member Role Status Dates Reed Sánchez DO Primary Care Provider Active Team Status: Inactive Member Role Status Dates Reed Sánchez DO Primary Care Provider Active Nasim Gifford DO Attending Provider Active Informatics Spec Relationship Specialty Start Date End Date PrincessReed DO [address] [place] [address] PCP - General Internal Medicine 09/25/22 Informatics Spec Relationship Specialty Start Date End Date Reed Sánchez DO [address] [place] [address] PCP - General Internal Medicine 09/25/22 Informatics Spec Relationship Specialty Start Date End Date PrincessReed DO [address] [place] [address] PCP - General Internal Medicine 09/25/22 Team Status: Inactive Member Role Status Dates Neena Youngblood MD Attending Provider Active Reed Sánchez DO Primary Care Provider Active Informatics Spec Relationship Specialty Start Date End Date Princess Reed DO [address] [place] [address] PCP - General Internal Medicine 09/25/22 Informatics Spec Relationship Specialty Start Date End Date Reed Sánchez MD [address] [place] [id number] PCP - General Internal Medicine 05/09/23 Team Status: Inactive Member Role Status Dates Reed Sánchez DO Primary Care Provider Active Start: May 28, 2025 End: May 28, 2025 Reed Sánchez DO Attending Provider Active Sta rt: May 28, 2025 End: May 28, 2025 Informatics Spec Relationship Specialty Start Date End Date Reed Sánchez DO PCP - General Internal Medicine 05/09/23 INFORMATION SOURCE (unrecogn ized section and content) DATE CREATED AUTHOR [facility]/07/2022 [facility] DATE CREATED AUTHOR AUTHOR'S ORGANIZ ATION 11/16/2022 [facility] DATE CREATED AUTHOR AUTHOR'S ORGANIZ ATION 12/29/2022 [facility] DATE CREATED AUTHOR AUTHOR'S ORGANIZ ATION 07/10/2024 [facility] DATE CREATED AUTHOR AUTHOR'S ORGANIZ ATION 09/09/2024 [facility] Goals (unrecognized section and content) Goals may be documented in a n alternate sectionNo InformationNo InformationNo InformationGoals may be documented in an alternate sectionNo InformationNo InformationNo InformationGoals may be documented in an alternate section FOR RECORDS PERTAINING TO PATIENTS WHO ARE OR HAVE BEEN ENROLLED IN A CHEMICAL DEPENDENCY/SUBSTANCEABUSE PROGRAM, SOME INFORMATION MAY BE OMITTED. This clinical summary was aggregated from multiple sources. Caution should be exercised in using it in the provision of clinical care. This summary normalizes information from multiple sources, and as a consequence, information in this document may materially change the coding, format and clinical context of patient data. In addition, data may be omitted in some cases. CLINICAL DECISIONS SHOULD BE BASED ON THE PRIMARY CLINICAL RECORDS. [employer] provides no warranty or guarantee of the accuracy or completeness of information in this document.
[2025-06-11 09:20] LABS: Hematocrit 39.6 % (36.0-48.0); Hemoglobin 13.3 g/dL (12.0-16.0); Immature Granulocytes Abs Auto 0.05 10^3/uL (0.00-0.03); Immature Granulocytes Pct Auto 0.7 % (0.0-0.5); Lymphocytes Absolute Auto 2.5 10^3/uL (1.2-3.8); Mean Corpuscular HGB Conc 33.6 g/dL (29.9-35.2); Mean Corpuscular Hemoglobin 29.8 pg (26.7-34.0); Mean Corpuscular Volume 88.6 fL (81.0-99.0); Platelet Count 268 10^3/uL (150-450); Red Blood Count 4.47 10^6/uL (4.20-5.40); White Blood Count 7.5 10^3/uL (4.0-11.0)
[2025-06-11 11:31] LABS: Anion Gap 11.6; Blood Urea Nitrogen 17.0 mg/dL (7.0-18.0); Carbon Dioxide 28.6 mmol/L (21.0-32.0); Chloride 104 mmol/L (98-107); Estimated GFR (African America >60 (>=60 mL/min/1.73m^2); Estimated GFR (Non-African Ame >60 (>=60 mL/min/1.73m^2); Glucose 95 mg/dL (74-106); Potassium 4.2 mmol/L (3.5-5.1); Sodium 140 mmol/L (136-145)
[2025-06-11 11:32] LABS: Alanine Aminotransferase 23 U/L (14-59); Albumin Globulin Ratio 0.9; Albumin Level 3.6 g/dL (3.4-5.0); Alkaline Phosphatase 73 U/L (46-116); Aspartate Amino Transferase 14 U/L (15-37); Calcium 9.0 mg/dL (8.5-10.1); Cholesterol 268 mg/dL (<=200); Globulin 3.8 g/dL; HDL Cholesterol 58 mg/dL (40-60); Thyroid Stimulating Hormone 1.640 uIU/mL (0.358-3.740); Total Protein 7.4 g/dL (6.4-8.2); Triglycerides 307 mg/dL (<=150); VLDL CHOLESTEROL 61.4 mg/dL
== END 2025-06-11 08:12 | disposition home or self-care (01) ==
PROVIDERS: PCP Internal Medicine; Visit Provider Internal Medicine
DX: Z00.00 Encounter for general adult medical examination without abnormal findings (principal)
CPT/HCPCS: 36415; 80053; 80061; 84443; 85025